=== PATIENT | male | born 1940 | race African-American/Black ===

== ENCOUNTER 2016-08-25 14:35 | Emergency (ER) | payer MEDICARE ==
--- NOTE | 2016-08-25 15:30 | ER Document Report ---
ED Medical Screen (RME) - General Stated Complaint: SHOULDER PAIN Time seen by provider: 15:27 Mode of Arrival: Ambulatory Information source: Patient Notes: 75-year-old smoker, hypertensive male complaining of bilateral shoulder pain for 3 weeks. It is worse since yesterday. Movement makes it worse. The pain radiates into both sides of his anterior chest. No known cardiac disease. Consult Dr. Walker for workup. I have greeted and performed a rapid initial assessment of this patient. A comprehensive ED assessment, evaluation of the patient, analysis of test results , and completion of the medical decision making process will be conducted by additional ED providers. TRAVEL OUTSIDE OF THE [place] IN LAST 30 DAYS: No - Related Data Allergies/Adverse Reactions: Penicillins Allergy (Verified 08/25/16 15:32) Past Medical History - Past Medical History Cardiac Medical History: Reports: Hx Congestive Heart Failure, Hx Hypertension Musculoskeltal Medical History: Reports Hx Arthritis Skin Medical History: Reports Hx Cellulitis - Immunizations Immunizations up to date: Yes Hx Diphtheria, Pertussis, Tetanus Vaccination: Yes Physical Exam - Vital signs Vitals: Temp Pulse Resp BP Pulse Ox 97.4 F 79 20 155/102 H 97 08/25/16 14:57 08/25/16 14:57 08/25/16 14:57 08/25/16 14:57 08/25/16 14:57 Course - Vital Signs Vital signs: Temp Pulse Resp BP Pulse Ox 97.4 F 79 20 155/102 H 97 08/25/16 14:57 08/25/16 14:57 08/25/16 14:57 08/25/16 14:57 08/25/16 14:57
[2016-08-25] MEDS ORDERED: ASPIRIN 81 MG TABLET, CHEWABLE PO ONE (15:31)
[2016-08-25 16:31] LABS: ABSOLUTE BASOPHILS # (AUTO) 0.1 10^3/uL (0.0-0.2); ABSOLUTE LYMPHOCYTES (AUTO) 1.4 10^3/uL (0.5-4.7); ABSOLUTE MONOCYTES (AUTO) 0.5 10^3/uL (0.1-1.4); ABSOLUTE NEUT (AUTO) 4.7 10^3/uL (1.7-8.2); BASOPHILS % (AUTO) 0.8 % (0-2); EOSINOPHILS % (AUTO) 0.7 % (0-6); HEMATOCRIT 40.9 % (37.9-51.0); HEMOGLOBIN 13.8 g/dL (13.5-17.0); HGB HCT DIFFERENCE 0.5; LYMPHOCYTES % (AUTO) 20.3 % (13-45); MEAN CORPUSCULAR HEMOGLOBIN 33.3 pg (27.0-33.4); MEAN CORPUSCULAR HGB CONC 33.7 g/dL (32.0-36.0); MEAN CORPUSCULAR VOLUME 99 fl (80-97); MONOCYTES % (AUTO) 7.7 % (3-13); RED BLOOD COUNT 4.14 10^6/uL (4.35-5.55); RED CELL DISTRIBUTION WIDTH 13.8 % (11.5-14.0); SEGMENTED NEUTROPHILS % (AUTO) 70.5 % (42-78); WHITE BLOOD COUNT 6.6 10^3/uL (4.0-10.5)
[2016-08-25 16:50] LABS: ALANINE AMINOTRANSFERASE 16 U/L (21-72); ALBUMIN 4.6 g/dL (3.5-5.0); ALKALINE PHOSPHATASE 241 U/L (38-126); ANION GAP 13 (5-19); ASPARTATE AMINO TRANSFERASE 34 U/L (17-59); BILIRUBIN,TOTAL 0.9 mg/dL (0.2-1.3); BLOOD UREA NITROGEN 17 mg/dL (7-20); CALCIUM 10.1 mg/dL (8.4-10.2); CARBON DIOXIDE 25 mmol/L (22-30); CHLORIDE 105 mmol/L (98-107); CREATINE KINASE 524 U/L (55-170); CREATININE RESULT 1.18 mg/dL (0.52-1.25); GLUCOSE 90 mg/dL (75-110); POTASSIUM 4.3 mmol/L (3.6-5.0); TOTAL PROTEIN 8.9 g/dL (6.3-8.2)
[2016-08-25 17:03] LABS: CREATINE KINASE MB 5.92 ng/mL (<4.55); TROPONIN I 0.031 ng/mL
--- NOTE | 2016-08-25 20:46 | EKG REPORT ---
SEVERITY:- ABNORMAL ECG - SINUS RHYTHM LEFT ANTERIOR FASCICULAR BLOCK NONSPECIFIC T ABNORMALITIES, LATERAL LEADS : Confirmed by: Rafael Hall 25-Aug-2016 20:45:55
[2016-08-25] MEDS ORDERED: OXYCODONE-ACETAMINOPHEN 5-325 MG TABLET PO ONE (21:39)
--- NOTE | 2016-08-25 21:40 | ER Document Report ---
ED General - General Chief Complaint: Shoulder Pain Stated Complaint: SHOULDER PAIN Mode of Arrival: Ambulatory Information source: Patient Notes: 75-year-old male presents with complaints of bilateral shoulder pain of 3 week duration. Patient notes it hurts when he moves. Denies any trauma. Patient has had similar episodes in the past.The pain is in the shoulders when he moves around his arms it radiates around his chest. Patient denies actual chest pain TRAVEL OUTSIDE OF THE [place] IN LAST 30 DAYS: No - HPI Onset: Other Onset/Duration: Persistent Quality of pain: Achy Severity: Mild Pain Level: 1 Associated symptoms: Body/muscle aches Exacerbated by: Movement Relieved by: Denies Similar symptoms previously: Yes Recently seen / treated by doctor: No - Related Data Allergies/Adverse Reactions: Penicillins Allergy (Verified 08/25/16 15:32) Past Medical History - General Information source: Patient - Social History Smoking Status: Current Every Day Smoker Cigarette use (# per day): Yes Chew tobacco use (# tins/day): No Smoking Education Provided: Yes - Patient counselled regarding cessation for 4 minutes Frequency of alcohol use: Occasional Drug Abuse: None Family History: Arthritis, DM, Hyperlipidemia, Hypertension Patient has suicidal ideation: No Patient has homicidal ideation: No - Past Medical History Cardiac Medical History: Reports: Hx Congestive Heart Failure, Hx Hypertension Renal/ Medical History: Denies: Hx Peritoneal Dialysis Musculoskeltal Medical History: Reports Hx Arthritis Skin Medical History: Reports Hx Cellulitis - Immunizations Immunizations up to date: Yes Hx Diphtheria, Pertussis, Tetanus Vaccination: Yes Review of Systems - Review of Systems Notes: REVIEW OF SYSTEMS: CONSTITUTIONAL : Denies fever, chills, or sweats. Denies recent illness. EENT: Denies eye, ear, throat, or mouth pain or symptoms. Denies nasal or sinus congestion or discharge. Denies throat, tongue, or mouth swelling or difficulty swallowing. CARDIOVASCULAR: Denies chest pain. Denies palpitations or racing or irregular heart beat. Denies ankle edema. RESPIRATORY: Denies cough, cold, or chest congestion. Denies shortness of breath, difficulty breathing, or wheezing. GASTROINTESTINAL: Denies abdominal pain or distention. Denies nausea, vomiting , or diarrhea. Denies blood in vomitus, stools, or per rectum. Denies black, tarry stools. Denies constipation. GENITOURINARY: Denies difficulty urinating, painful urination, burning, frequency, blood in urine, or discharge. MUSCULOSKELETAL: Admits to bilateral shoulder pain SKIN: Denies rash, lesions or sores. HEMATOLOGIC : Denies easy bruising or bleeding. LYMPHATIC: Denies swollen, enlarged glands. NEUROLOGICAL: Denies confusion or altered mental status. Denies passing out or loss of consciousness. Denies dizziness or lightheadedness. Denies headache. Denies weakness or paralysis or loss of use of either side. Denies problems with gait or speech. Denies sensory loss, numbness, or tingling. Denies seizures. PSYCHIATRIC: Denies anxiety or stress. Denies depression, suicidal ideation, or homicidal ideation. ALL OTHER SYSTEMS REVIEWED AND NEGATIVE. Dictation was performed using [employer] voice recognition software PHYSICAL EXAMINATION: GENERAL: Well-appearing, well-nourished and in no acute distress. HEAD: Atraumatic, normocephalic. EYES: Pupils equal round and reactive to light, extraocular movements intact, sclera anicteric, conjunctiva are normal. ENT: Nares patent, oropharynx clear without exudates. Moist mucous membranes. NECK: Normal range of motion, supple without lymphadenopathy LUNGS: Breath sounds clear to auscultation bilaterally and equal. No wheezes rales or rhonchi. HEART: Regular rate and rhythm without murmurs ABDOMEN: Soft, nontender, nondistended abdomen. No guarding, no rebound. No masses appreciated. Musculoskeletal: Tenderness with range of motion of bilateral shoulders NEUROLOGICAL: Cranial nerves grossly intact. Normal speech, normal gait. Normal sensory, motor exams PSYCH: Normal mood, normal affect. SKIN: Warm, Dry, normal turgor, no rashes or lesions noted. Physical Exam - Vital signs Vitals: Temp Pulse Resp BP Pulse Ox 97.4 F 79 20 155/102 H 97 08/25/16 14:57 08/25/16 14:57 08/25/16 14:57 08/25/16 14:57 08/25/16 14:57 Course - Re-evaluation Re-evalutation: 08/25/16 21:36 Given the pain worsens with movement has been ongoing for 3 weeks straight is not associated with any shortness breath difficult to breathing or actual pain to the chest I do not expect any life-threatening issues. 03/06/17 22:18 After performing a Medical Screening Examination, I estimate there is LOW risk for RUPTURED ESOPHAGUS, PNEUMOTHORAX, PULMONARY EMBOLISM, ACUTE CORONARY SYNDROME, OR THORACIC AORTIC DISSECTION, thus I consider the discharge disposition reasonable. The patient and I have discussed the diagnosis and risks , and we agree with discharging home with close follow-up. We also discussed returning to the Emergency Department immediately if new or worsening symptoms occur. We have discussed the symptoms which are most concerning (e.g., bloody sputum, worsening pain or shortness of breath) that necessitate immediate return. - Vital Signs Vital signs: Temp Pulse Resp BP Pulse Ox 97.4 F 79 20 155/102 H 97 08/25/16 14:57 08/25/16 14:57 08/25/16 14:57 08/25/16 14:57 08/25/16 14:57 - Laboratory Result Diagrams: 08/25/16 16:05 08/25/16 16:05 Laboratory results interpreted by me: 08/25/16 08/25/16 08/25/16 16:05 16:05 16:05 RBC 4.14 L MCV 99 H ALT 16 L Alkaline Phosphatase 241 H Creatine Kinase 524 H CK-MB (CK-2) 5.92 H Total Protein 8.9 H - Diagnostic Test Radiology reviewed: Image reviewed, Reports reviewed - EKG Interpretation by Ca EKG shows normal: Sinus rhythm, [place], Intervals, QRS Complexes Discharge - Discharge Clinical Impression: Myalgia Shoulder pain Qualifiers: Laterality: bilateral Chronicity: acute Qualified Code(s): M25.511 - Pain in right shoulder Condition: Stable Disposition: HOME, SELF-CARE Instructions: Muscle Strain ([facility]), Myalagia (Muscle Pain) ([facility]) Additional Instructions: Follow up with your physician tomorrow for further care or return to the ED IMMEDIATELY if symptoms worsen or new concerns occur Prescriptions: Hydrocodone/Acetaminophen [[place] 5-325 mg Tablet] 1 tab PO Q6 #14 tablet Referrals: ARIN LEON MD [Primary Care Provider] - Follow up in 3-5 days
[2016-08-25 23:13] VITALS: BP 147/65
== END 2016-08-25 23:13 | disposition home or self-care (01) ==
LOC: ER 14:35
DX: M25.512 Pain in left shoulder (principal); M25.511 Pain in right shoulder; Z88.0 Allergy status to penicillin; I10 Essential (primary) hypertension; F17.210 Nicotine dependence, cigarettes, uncomplicated; Z71.6 Tobacco abuse counseling
CPT/HCPCS: 93005; 99406; 99284; 36415; 82553; 82550; 85025; 80053; 84484; 71010; 93010; A9270 ×2

== ENCOUNTER 2016-10-23 11:11 | Emergency (ER) | payer MEDICARE ==
--- NOTE | 2016-10-23 11:28 | ER Document Report ---
ED Medical Screen (RME) - General Chief Complaint: Productive Cough Stated Complaint: SHOULDER PAIN Mode of Arrival: Ambulatory Information source: Patient Notes: Patient complains of pain in both shoulders. Pain of about 3 weeks' duration. Also he complains of a cough and a very poor appetite. He has been losing weight. TRAVEL OUTSIDE OF THE [place] IN LAST 30 DAYS: No - HPI Onset: Other - 3 WEEKS Onset/Duration: Gradual Quality of pain: Achy Severity: Moderate Similar symptoms previously: No Recently seen / treated by doctor: No - Related Data Smoking: Cigarettes Frequency of alcohol use: None Drug Abuse: None Allergies/Adverse Reactions: Penicillins Allergy (Verified 10/23/16 11:13) Past Medical History - General Information source: Patient - Social History Lives with: Spouse/Significant other - Past Medical History Cardiac Medical History: Reports: Hx Congestive Heart Failure, Hx Hypertension Renal/ Medical History: Denies: Hx Peritoneal Dialysis Musculoskeltal Medical History: Reports Hx Arthritis Skin Medical History: Reports Hx Cellulitis - Immunizations Immunizations up to date: Yes Hx Diphtheria, Pertussis, Tetanus Vaccination: Yes Review of Systems - Review of Systems Constitutional: Weakness. denies: Fever EENT: No symptoms reported Cardiovascular: See HPI Respiratory: See HPI Genitourinary: See HPI Physical Exam - Vital signs Vitals: Temp Pulse Resp BP Pulse Ox 98.3 F 77 16 132/94 H 94 10/23/16 11:14 10/23/16 11:14 10/23/16 11:14 10/23/16 11:14 10/23/16 11:14 Interpretation: Hypertensive - General General appearance: Appears well, Alert In distress: None - Respiratory Respiratory status: No respiratory distress Breath sounds: Productive cough. No: Rales, Rhonchi - Cardiovascular Rhythm: Regular Heart sounds: Normal auscultation Murmur: No Course - Vital Signs Vital signs: Temp Pulse Resp BP Pulse Ox 98.3 F 77 16 132/94 H 94 10/23/16 11:14 10/23/16 11:14 10/23/16 11:14 10/23/16 11:14 10/23/16 11:14
[2016-10-23 11:41] LABS: ABSOLUTE EOSINOPHILS # (AUTO) 0.4 10^3/uL (0.0-0.6); ABSOLUTE LYMPHOCYTES (AUTO) 1.8 10^3/uL (0.5-4.7); ABSOLUTE MONOCYTES (AUTO) 0.5 10^3/uL (0.1-1.4); ABSOLUTE NEUT (AUTO) 3.2 10^3/uL (1.7-8.2); BASOPHILS % (AUTO) 0.6 % (0-2); EOSINOPHILS % (AUTO) 7.1 % (0-6); HEMATOCRIT 38.3 % (37.9-51.0); HEMOGLOBIN 12.9 g/dL (13.5-17.0); HGB HCT DIFFERENCE 0.4; LYMPHOCYTES % (AUTO) 30.8 % (13-45); MEAN CORPUSCULAR HEMOGLOBIN 32.8 pg (27.0-33.4); MEAN CORPUSCULAR HGB CONC 33.7 g/dL (32.0-36.0); MEAN CORPUSCULAR VOLUME 97 fl (80-97); MONOCYTES % (AUTO) 8.3 % (3-13); RED BLOOD COUNT 3.93 10^6/uL (4.35-5.55); RED CELL DISTRIBUTION WIDTH 13.2 % (11.5-14.0); SEGMENTED NEUTROPHILS % (AUTO) 53.2 % (42-78)
[2016-10-23 11:56] LABS: ALANINE AMINOTRANSFERASE 17 U/L (21-72); ALBUMIN 4.1 g/dL (3.5-5.0); ALKALINE PHOSPHATASE 149 U/L (38-126); ANION GAP 14 (5-19); ASPARTATE AMINO TRANSFERASE 26 U/L (17-59); BILIRUBIN,DIRECT 0.3 mg/dL (0.0-0.4); BILIRUBIN,TOTAL 0.4 mg/dL (0.2-1.3); BLOOD UREA NITROGEN 24 mg/dL (7-20); CALCIUM 9.6 mg/dL (8.4-10.2); CARBON DIOXIDE 22 mmol/L (22-30); CHLORIDE 105 mmol/L (98-107); CREATINE KINASE 340 U/L (55-170); CREATININE RESULT 1.37 mg/dL (0.52-1.25); GLUCOSE 96 mg/dL (75-110); POTASSIUM 4.3 mmol/L (3.6-5.0); SODIUM 141.4 mmol/L (137-145)
[2016-10-23 12:08] LABS: CREATINE KINASE MB 4.42 ng/mL (<4.55); TROPONIN I 0.012 ng/mL
[2016-10-23] MEDS ORDERED: LIDOCAINE 5% (700 MG) TRANSDERMAL ADH..PATCH TP ONE (12:25)
--- NOTE | 2016-10-23 12:26 | ER Document Report ---
ED General - General Chief Complaint: Productive Cough Stated Complaint: SHOULDER PAIN Mode of Arrival: Ambulatory TRAVEL OUTSIDE OF THE [place] IN LAST 30 DAYS: No - HPI Patient complains to provider of: chronic cough shoulder pain Notes: Patient coming in for evaluation of left shoulder pain patient states pain ongoing intermittently greater than a month. Patient points to the upper trapezius muscle on left side as far as location the pain. Patient adamantly denies any specific chest pain. Patient states pain with range of motion exercises. Patient also states cough. Patient states he does smoke approximately 1-2 packs a day. Patient otherwise denies fevers chills nausea vomiting abdominal pain - Related Data Allergies/Adverse Reactions: Penicillins Allergy (Verified 10/23/16 11:13) Past Medical History - General Information source: Patient - Social History Smoking Status: Unknown if Ever Smoked Frequency of alcohol use: None Drug Abuse: None Lives with: Spouse/Significant other Family History: Arthritis, DM, Hyperlipidemia, Hypertension Patient has suicidal ideation: No Patient has homicidal ideation: No - Past Medical History Cardiac Medical History: Reports: Hx Congestive Heart Failure, Hx Hypertension Renal/ Medical History: Denies: Hx Peritoneal Dialysis Musculoskeltal Medical History: Reports Hx Arthritis Skin Medical History: Reports Hx Cellulitis - Immunizations Immunizations up to date: Yes Hx Diphtheria, Pertussis, Tetanus Vaccination: Yes Review of Systems - Review of Systems Constitutional: No symptoms reported EENT: No symptoms reported Cardiovascular: No symptoms reported Respiratory: No symptoms reported Gastrointestinal: No symptoms reported Genitourinary: No symptoms reported Male Genitourinary: No symptoms reported Musculoskeletal: Other - Shoulder pain Skin: No symptoms reported Hematologic/Lymphatic: No symptoms reported Neurological/Psychological: No symptoms reported Physical Exam - Vital signs Vitals: Temp Pulse Resp BP Pulse Ox 98.3 F 77 16 132/94 H 94 10/23/16 11:14 10/23/16 11:14 10/23/16 11:14 10/23/16 11:14 10/23/16 11:14 Interpretation: Normal - General General appearance: Appears well, Alert - HEENT Head: Normocephalic, Atraumatic Eyes: Normal Pupils: PERRL - Respiratory Respiratory status: No respiratory distress Chest status: Nontender Breath sounds: Normal Chest palpation: Normal - Cardiovascular Rhythm: Regular Heart sounds: Normal auscultation Murmur: No - Abdominal Inspection: Normal Distension: No distension Bowel sounds: Normal Tenderness: Nontender Organomegaly: No organomegaly - Back Back: Normal, Nontender - Extremities General upper extremity: Normal inspection, Tender - Tenderness palpation reproduces patient's left shoulder pain, Normal color, Normal ROM, Normal temperature General lower extremity: Normal inspection, Nontender, Normal color, Normal ROM , Normal temperature, Normal weight bearing. No: Hussein's sign - Neurological Neuro grossly intact: Yes Cognition: Normal Orientation: AAOx4 Antonio Coma Scale Eye Opening: Spontaneous Antonio Coma Scale Verbal: Oriented [place] Coma Scale Motor: Obeys Commands Antonio Coma Scale Total: 15 Speech: Normal Motor strength normal: LUE, RUE, LLE, RLE Sensory: Normal - Psychological Associated symptoms: Normal affect, Normal mood - Skin Skin Temperature: Warm Skin Moisture: Dry Skin Color: Normal Course - Re-evaluation Re-evalutation: 10/23/16 15:02 The patient has atypical left shoulder pain as the patient's chest pain is not suggestive of pulmonary embolus, cardiac ischemia, aortic dissection, or other serious etiology. Given the extremely low risk of these diagnoses further testing and evaluation for these possibilities does not appear to be indicated at this time. The patient has been instructed to return if the symptoms worsen or change in any way. - Vital Signs Vital signs: Temp Pulse Resp BP Pulse Ox 98.2 F 65 16 132/76 H 99 10/23/16 12:59 10/23/16 12:59 10/23/16 12:59 10/23/16 12:59 10/23/16 12:59 - Laboratory Result Diagrams: 10/23/16 11:25 10/23/16 11:25 Laboratory results interpreted by me: 10/23/16 10/23/16 11:25 11:25 RBC 3.93 L Hgb 12.9 L Eosinophils % 7.1 H BUN 24 H Creatinine 1.37 H Est GFR (Non-Af Amer) 51 L ALT 17 L Alkaline Phosphatase 149 H Creatine Kinase 340 H Discharge - Discharge Clinical Impression: Tobacco use disorder, Cough, left upper shoulder pain Condition: Good Disposition: HOME, SELF-CARE Instructions: Exercise Program for the Shoulder ([facility]), Shoulder Injury ([facility]), Cough Suppressant & Expectorant Medications Additional Instructions: Take medication as prescribed. Return to the ER symptoms worsen. Follow-up with your primary care physician Prescriptions: Benzonatate [Tessalon [place] 100 mg Capsule] 100 mg PO Q8HP PRN #40 cap PRN Reason: Tramadol HCl [Ultram 50 mg Tablet] 50 mg PO ASDIR PRN #20 tablet PRN Reason: Forms: Smoking Cessation Education Referrals: ARIN LEON MD [Primary Care Provider] - Follow up as needed
[2016-10-23 13:06] VITALS: BP 132/76
--- NOTE | 2016-10-24 08:09 | EKG REPORT ---
SEVERITY:- ABNORMAL ECG - SINUS RHYTHM LAD, CONSIDER LAFB OR INFERIOR INFARCT NONSPECIFIC T ABNORMALITIES, LATERAL LEADS : Confirmed by: Kranthi Espinoza MD 24-Oct-2016 08:08:14
== END 2016-10-23 13:00 | disposition home or self-care (01) ==
LOC: ER 11:11
DX: M25.512 Pain in left shoulder (principal); R05 Cough; F17.210 Nicotine dependence, cigarettes, uncomplicated
CPT/HCPCS: 36415; 71020; 80053; 82550; 82553; 84484; 85025; 93005; 93010; 99284

== ENCOUNTER 2016-10-26 20:05 | Emergency (ER) | payer MEDICARE ==
--- NOTE | 2016-10-26 20:50 | ER Document Report ---
ED General - General Mode of Arrival: Medic Information source: Patient TRAVEL OUTSIDE OF THE [place] IN LAST 30 DAYS: No - HPI Onset: Other - Refer to HPI notes Exacerbated by: Movement, Walking Relieved by: Sitting, Remaining still Similar symptoms previously: Yes Recently seen / treated by doctor: Yes <RAFAL KAMARA - Last Filed: 10/26/16 22:16> <NINO CAMPBELL - Last Filed: 10/26/16 23:11> - General Stated Complaint: CHEST PAIN Notes: Patient is a 75-year-old male presented to emergency department for shoulder pain. Patient states she has had shoulder pain for the past 3 weeks. Patient states his pain is exacerbated when picking up things and walking. Patient states if he is sitting still he has relief to his shoulder pain. Patient was seen on 10/23/16 for same complaint. Patient states his pain eased off but has returned. Patient told triage of a productive cough for 3 weeks but patient does not complain of such during exam. Patient was also seen on 08/25/16 with a chief complaint of shoulder pain for 3 weeks. Patient denies any previous cardiac medical history. Patient's primary care physician is Dr. Watson. Patient is allergic to penicillin. (RAFAL KAMARA) - Related Data Allergies/Adverse Reactions: Penicillins Allergy (Verified 10/23/16 11:13) Past Medical History - General Information source: Patient - Social History Smoking Status: Current Every Day Smoker Chew tobacco use (# tins/day): No Frequency of alcohol use: None Drug Abuse: None Family History: Arthritis, DM, Hyperlipidemia, Hypertension - Past Medical History Cardiac Medical History: Reports: Hx Congestive Heart Failure, Hx Hypertension Musculoskeltal Medical History: Reports Hx Arthritis Skin Medical History: Reports Hx Cellulitis Surgical Hx: Negative - Immunizations Immunizations up to date: Yes Hx Diphtheria, Pertussis, Tetanus Vaccination: Yes <RAFAL KAMARA - Last Filed: 10/26/16 22:16> Review of Systems - Review of Systems Constitutional: No symptoms reported EENT: No symptoms reported Cardiovascular: No symptoms reported Respiratory: No symptoms reported Gastrointestinal: No symptoms reported Genitourinary: No symptoms reported Male Genitourinary: No symptoms reported Musculoskeletal: See HPI Skin: No symptoms reported Hematologic/Lymphatic: No symptoms reported Neurological/Psychological: No symptoms reported -: Yes All other systems reviewed and negative <EDRAFAL LEWIS - Last Filed: 10/26/16 22:16> Physical Exam <RAFAL KAMARA - Last Filed: 10/26/16 22:16> <NINO CAMPBELL - Last Filed: 10/26/16 23:11> - Vital signs Vitals: Resp 16 10/26/16 20:15 - Notes Notes: GENERAL: Alert, interacts well. No acute distress. HEAD: Normocephalic, atraumatic. EYES: Pupils equal, round, and reactive to light. Extraocular movements intact. ENT: Oral mucosa moist, tongue midline. Edentulous. NECK: Full range of motion. Supple. Trachea midline. LUNGS: Chest is non-tender. Clear to auscultation bilaterally, no wheezes, rales , or rhonchi. No respiratory distress. HEART: Regular rate and rhythm. No murmurs, gallops, or rubs. ABDOMEN: Soft, non-tender. Non-distended. Bowel sounds present in all 4 quadrants. EXTREMITIES: Tenderness to palpation anteriorly over the glenohumeral joint bilaterally. Moves all 4 extremities spontaneously. No edema, radial and dorsalis pedis pulses 2/4 bilaterally. No cyanosis. NEUROLOGICAL: Alert and oriented x3. Normal speech. PSYCH: Normal affect, normal mood. SKIN: Warm, dry, normal turgor. No rashes or lesions noted. (ASADRAFAL) Course - Laboratory Result Diagrams: 10/26/16 20:30 10/26/16 21:08 <RAFAL KAMARA - Last Filed: 10/26/16 22:16> - Laboratory Result Diagrams: 10/26/16 20:30 10/26/16 21:08 <NINO CAMPBELL - Last Filed: 10/26/16 23:11> - Re-evaluation Re-evalutation: 10/26/16 23:08 CBC shows chronic anemia, CMP shows slightly elevated alkaline phosphatase, CK and CK-MB are slightly elevated, troponin is negative at 0.021 despite over 3 weeks' worth of nonstop pain. Review the records reveals a visit for the same thing in August as well as a visit for the same thing approximately 3 days ago. Patient was previously treated with hydrocodone and then treated with tramadol. States that nothing is working to decrease his pain. Patient has not followed up with his primary care physician or see fell up with orthopedic surgery. Discussed with patient that for this chronic pain he will need to follow up as an outpatient, his best that will likely be orthopedic surgery. Suspect that this pain is coming from arthritis in his shoulders. We will not be providing any further narcotic pain medication. Recommend using acetaminophen. Patient was discharged to home. 10/26/16 23:09 Denies any cough to me, denies any shortness of breath to me, denies any chest pain to me. Patient is very low risk for acute coronary syndrome, pulmonary embolism or dissection as this pain has been going on for at least 3 weeks but looking in the records appears to been going on for closer to 3 months. (NINO CAMPBELL) - Vital Signs Vital signs: Temp Pulse Resp BP Pulse Ox 98.2 F 14 123/72 94 10/26/16 20:31 10/26/16 20:45 10/26/16 20:31 10/26/16 20:57 - Laboratory Laboratory results interpreted by me: 10/26/16 10/26/16 10/26/16 20:30 21:08 21:08 RBC 3.49 L Hgb 11.6 L Hct 34.0 L Plt Count 136 L Carbon Dioxide 20 L Est GFR (Non-Af Amer) 56 L ALT 20 L Alkaline Phosphatase 160 H Creatine Kinase 378 H CK-MB (CK-2) 5.41 H - EKG Interpretation by Me Additional EKG results interpreted by me: 10/26/16 23:09 EKG shows sinus rhythm at a rate of 64, left anterior hemiblock, normal R wave progression, T wave inversions in lead 1 and aVL, no ST segment elevations or depressions, per my interpretation. (NINO CAMPBELL) Discharge <RAFAL KAMARA - Last Filed: 10/26/16 22:16> <NINO CAMPBELL - Last Filed: 10/26/16 23:11> - Discharge Clinical Impression: Bilateral shoulder pain Qualifiers: Chronicity: chronic Qualified Code(s): M25.512 - Pain in left shoulder; M25.511 - Pain in right shoulder; G89.29 - Other chronic pain Condition: Stable Disposition: HOME, SELF-CARE Additional Instructions: For your bilateral shoulder pain that has been going on for at least 3 weeks it is very important that you follow up with your primary care physician as an outpatient. You may wish to follow up with an orthopedic surgeon to discuss possible joint injections. I suspect that arthritis is the cause of your pain. Elliott Attestation: 10/26/16 23:11 I personally performed the services described in the documentation, reviewed and edited the documentation which was dictated to the scribe in my presence, and it accurately records my words and actions. (NINO CAMPBELL) Scribe Documentation - Scribe Written by Elliott:: Elliott De La Cruz, 10/26/16 21:46 acting as scribe for :: Emily <RAFAL KAMARA - Last Filed: 10/26/16 22:16>
[2016-10-26 20:57] LABS: ABSOLUTE BASOPHILS # (AUTO) 0.1 10^3/uL (0.0-0.2); ABSOLUTE EOSINOPHILS # (AUTO) 0.2 10^3/uL (0.0-0.6); ABSOLUTE LYMPHOCYTES (AUTO) 1.6 10^3/uL (0.5-4.7); ABSOLUTE MONOCYTES (AUTO) 0.3 10^3/uL (0.1-1.4); ABSOLUTE NEUT (AUTO) 2.7 10^3/uL (1.7-8.2); BASOPHILS % (AUTO) 1.3 % (0-2); EOSINOPHILS % (AUTO) 3.4 % (0-6); HEMOGLOBIN 11.6 g/dL (13.5-17.0); HGB HCT DIFFERENCE 0.8; LYMPHOCYTES % (AUTO) 32.9 % (13-45); MEAN CORPUSCULAR HEMOGLOBIN 33.3 pg (27.0-33.4); MEAN CORPUSCULAR HGB CONC 34.2 g/dL (32.0-36.0); MEAN CORPUSCULAR VOLUME 97 fl (80-97); MONOCYTES % (AUTO) 7.2 % (3-13); RED BLOOD COUNT 3.49 10^6/uL (4.35-5.55); RED CELL DISTRIBUTION WIDTH 13.1 % (11.5-14.0); SEGMENTED NEUTROPHILS % (AUTO) 55.2 % (42-78); WHITE BLOOD COUNT 4.9 10^3/uL (4.0-10.5)
[2016-10-26 21:35] LABS: ALANINE AMINOTRANSFERASE 20 U/L (21-72); ALBUMIN 4.3 g/dL (3.5-5.0); ALKALINE PHOSPHATASE 160 U/L (38-126); ANION GAP 16 (5-19); ASPARTATE AMINO TRANSFERASE 31 U/L (17-59); BILIRUBIN,DIRECT 0.3 mg/dL (0.0-0.4); BILIRUBIN,TOTAL 0.3 mg/dL (0.2-1.3); BLOOD UREA NITROGEN 17 mg/dL (7-20); CALCIUM 9.5 mg/dL (8.4-10.2); CARBON DIOXIDE 20 mmol/L (22-30); CHLORIDE 107 mmol/L (98-107); CREATINE KINASE 378 U/L (55-170); CREATININE RESULT 1.25 mg/dL (0.52-1.25); GLUCOSE 86 mg/dL (75-110); POTASSIUM 3.9 mmol/L (3.6-5.0); SODIUM 143.3 mmol/L (137-145)
[2016-10-26 21:47] LABS: CREATINE KINASE MB 5.41 ng/mL (<4.55); TROPONIN I 0.021 ng/mL
--- NOTE | 2016-10-26 22:39 | EKG REPORT ---
SEVERITY:- ABNORMAL ECG - SINUS RHYTHM LEFT ANTERIOR FASCICULAR BLOCK LOW VOLTAGE IN FRONTAL LEADS NONSPECIFIC T ABNORMALITIES, LATERAL LEADS : Confirmed by: Kranthi Espinoza MD 26-Oct-2016 22:38:54
--- NOTE | 2016-10-26 22:41 | EKG REPORT ---
SEVERITY:- ABNORMAL ECG - SINUS RHYTHM LOW VOLTAGE IN FRONTAL LEADS NONSPECIFIC T ABNORMALITIES, LATERAL LEADS : Confirmed by: Kranthi Espinoza MD 26-Oct-2016 22:40:28
[2016-10-26 23:55] VITALS: BP 128/69
== END 2016-10-26 23:32 | disposition home or self-care (01) ==
LOC: ER 20:05
DX: G89.29 Other chronic pain (principal); M25.511 Pain in right shoulder; M25.512 Pain in left shoulder; I45.9 Conduction disorder, unspecified; R74.8 Abnormal levels of other serum enzymes; D64.9 Anemia, unspecified; I10 Essential (primary) hypertension; F17.200 Nicotine dependence, unspecified, uncomplicated; Z88.0 Allergy status to penicillin; Z86.79 Personal history of other diseases of the circulatory system
CPT/HCPCS: 36415; 71010; 80053; 82550; 82553; 84484; 85025; 93005; 93010; 99284

== ENCOUNTER 2016-11-12 15:05 | Emergency (ER) | payer MEDICARE ==
--- NOTE | 2016-11-12 15:45 | ER Document Report ---
ED Medical Screen (RME) - General Chief Complaint: General Weakness Stated Complaint: HIP PAIN Time Seen by Provider: 11/12/16 15:41 Notes: Patient is complaining of feeling weakness all over this been present for at least 2 or 3 weeks. Says he saw his local primary care provider for the same complaint 3 weeks ago. Says he cannot walk any significant distance without falling because he is so weak. Patient is also complaining of pain in both of his shoulders. Describes it as "hurting". Recalls no injury. Has had some vomiting. No diarrhea. Has had a cough and chest congestion and feels short of breath. Denies any fevers. Cigarette smoker. TRAVEL OUTSIDE OF THE [place] IN LAST 30 DAYS: No - Related Data Allergies/Adverse Reactions: Penicillins Allergy (Verified 11/12/16 15:08) Past Medical History - Past Medical History Cardiac Medical History: Reports: Hx Congestive Heart Failure, Hx Hypertension Renal/ Medical History: Denies: Hx Peritoneal Dialysis Musculoskeltal Medical History: Reports Hx Arthritis Skin Medical History: Reports Hx Cellulitis - Immunizations Immunizations up to date: Yes Hx Diphtheria, Pertussis, Tetanus Vaccination: Yes Physical Exam - Vital signs Vitals: Temp Pulse Resp BP Pulse Ox 97.8 F 70 20 129/78 H 96 11/12/16 15:09 11/12/16 15:09 11/12/16 15:09 11/12/16 15:09 11/12/16 15:09 Course - Vital Signs Vital signs: Temp Pulse Resp BP Pulse Ox 97.8 F 70 20 129/78 H 96 11/12/16 15:09 11/12/16 15:09 11/12/16 15:09 11/12/16 15:09 11/12/16 15:09
[2016-11-12 16:23] LABS: ABSOLUTE BASOPHILS # (AUTO) 0.1 10^3/uL (0.0-0.2); ABSOLUTE EOSINOPHILS # (AUTO) 0.1 10^3/uL (0.0-0.6); ABSOLUTE LYMPHOCYTES (AUTO) 1.1 10^3/uL (0.5-4.7); ABSOLUTE MONOCYTES (AUTO) 0.6 10^3/uL (0.1-1.4); ABSOLUTE NEUT (AUTO) 5.6 10^3/uL (1.7-8.2); BASOPHILS % (AUTO) 0.7 % (0-2); EOSINOPHILS % (AUTO) 0.7 % (0-6); HEMATOCRIT 41.5 % (37.9-51.0); HGB HCT DIFFERENCE 0.5; LYMPHOCYTES % (AUTO) 15.2 % (13-45); MEAN CORPUSCULAR HEMOGLOBIN 32.7 pg (27.0-33.4); MEAN CORPUSCULAR HGB CONC 33.6 g/dL (32.0-36.0); MEAN CORPUSCULAR VOLUME 97 fl (80-97); MONOCYTES % (AUTO) 7.8 % (3-13); RED BLOOD COUNT 4.27 10^6/uL (4.35-5.55); RED CELL DISTRIBUTION WIDTH 13.1 % (11.5-14.0); SEGMENTED NEUTROPHILS % (AUTO) 75.6 % (42-78); WHITE BLOOD COUNT 7.4 10^3/uL (4.0-10.5)
--- NOTE | 2016-11-12 16:31 | RADIOLOGY REPORT (SQ) ---
EXAM DESCRIPTION: CHEST PA/LAT COMPLETED DATE/TIME: 11/12/2016 4:21 pm REASON FOR STUDY: Weakness, shortness of breath, [place], cigarette smo COMPARISON: 10/23/2016 EXAM PARAMETERS: NUMBER OF VIEWS: two views TECHNIQUE: Digital Frontal and Lateral radiographic views of the chest acquired. RADIATION DOSE: NA LIMITATIONS: none FINDINGS: LUNGS AND PLEURA: No opacities, masses or pneumothorax. No pleural effusion. MEDIASTINUM AND HILAR STRUCTURES: No masses or contour abnormalities. HEART AND VASCULAR STRUCTURES: Heart normal size. No evidence for failure. BONES: There is levoscoliosis in the upper thoracic spine. Bridging osteophytes are present at multi ple levels. HARDWARE: None in the chest. OTHER: No other significant finding. IMPRESSION: 1. There is no acute cardiopulmonary disease. 2. There is scoliosis and spondylosis. TECHNICAL DOCUMENTATION: JOB ID: [id number] [employer]- All Rights Reserved
[2016-11-12 16:36] LABS: ALANINE AMINOTRANSFERASE 30 U/L (21-72); ALBUMIN 4.6 g/dL (3.5-5.0); ALKALINE PHOSPHATASE 188 U/L (38-126); ANION GAP 16 (5-19); ASPARTATE AMINO TRANSFERASE 26 U/L (17-59); BILIRUBIN,DIRECT 0.3 mg/dL (0.0-0.4); BLOOD UREA NITROGEN 16 mg/dL (7-20); CALCIUM 9.6 mg/dL (8.4-10.2); CARBON DIOXIDE 23 mmol/L (22-30); CHLORIDE 103 mmol/L (98-107); CREATINE KINASE 248 U/L (55-170); GLUCOSE 100 mg/dL (75-110); LIPASE 40.4 U/L (23-300); POTASSIUM 4.4 mmol/L (3.6-5.0); SODIUM 141.6 mmol/L (137-145); TOTAL PROTEIN 8.7 g/dL (6.3-8.2)
[2016-11-12 16:47] LABS: CREATINE KINASE MB 3.24 ng/mL (<4.55); TROPONIN I 0.017 ng/mL
[2016-11-12] MEDS ORDERED: LIDOCAINE 5% (700 MG) TRANSDERMAL ADH..PATCH TP ONE (17:02)
--- NOTE | 2016-11-12 18:29 | ER Document Report ---
ED General - General Chief Complaint: General Weakness Stated Complaint: HIP PAIN Time Seen by Provider: 11/12/16 15:41 TRAVEL OUTSIDE OF THE [place] IN LAST 30 DAYS: No - HPI Patient complains to provider of: Generalized weakness Notes: Patient is coming in for arthralgias generalized weakness. Patient states ongoing for approximately 2-3 weeks. Patient has bilateral shoulder pain. Patient also states bilateral hip pain. Patient does smoke. Patient denies any fever chills nausea vomiting. Also has a cough nonproductive. - Related Data Allergies/Adverse Reactions: Penicillins Allergy (Verified 11/12/16 15:08) Past Medical History - Social History Smoking Status: Current Every Day Smoker Chew tobacco use (# tins/day): No Frequency of alcohol use: None Drug Abuse: None Family History: Arthritis, DM, Hyperlipidemia, Hypertension Patient has suicidal ideation: No Patient has homicidal ideation: No - Past Medical History Cardiac Medical History: Reports: Hx Congestive Heart Failure, Hx Hypertension Renal/ Medical History: Denies: Hx Peritoneal Dialysis Musculoskeltal Medical History: Reports Hx Arthritis Skin Medical History: Reports Hx Cellulitis - Immunizations Immunizations up to date: Yes Hx Diphtheria, Pertussis, Tetanus Vaccination: Yes Review of Systems - Review of Systems Constitutional: No symptoms reported EENT: No symptoms reported Cardiovascular: No symptoms reported Respiratory: Cough Gastrointestinal: No symptoms reported Genitourinary: No symptoms reported Male Genitourinary: No symptoms reported Musculoskeletal: Other - Point pain Skin: No symptoms reported Hematologic/Lymphatic: No symptoms reported Neurological/Psychological: No symptoms reported -: Yes All other systems reviewed and negative Physical Exam - Vital signs Vitals: Temp Pulse Resp BP Pulse Ox 97.8 F 70 20 129/78 H 96 11/12/16 15:09 11/12/16 15:09 11/12/16 15:09 11/12/16 15:09 11/12/16 15:09 Interpretation: Normal - General General appearance: Appears well, Alert - HEENT Head: Normocephalic, Atraumatic Eyes: Normal Pupils: PERRL - Respiratory Respiratory status: No respiratory distress Chest status: Nontender Breath sounds: Normal Chest palpation: Normal - Cardiovascular Rhythm: Regular Heart sounds: Normal auscultation Murmur: No - Abdominal Inspection: Normal Distension: No distension Bowel sounds: Normal Tenderness: Nontender Organomegaly: No organomegaly - Back Back: Normal, Nontender - Extremities General upper extremity: Normal inspection, Nontender, Normal color, Normal ROM , Normal temperature General lower extremity: Normal inspection, Nontender, Normal color, Normal ROM , Normal temperature, Normal weight bearing. No: Hussein's sign - Neurological Neuro grossly intact: Yes Cognition: Normal Orientation: AAOx4 [place] Coma Scale Eye Opening: Spontaneous Antonio Coma Scale Verbal: Oriented Antonio Coma Scale Motor: Obeys Commands Antonio Coma Scale Total: 15 Speech: Normal Motor strength normal: LUE, RUE, LLE, RLE Sensory: Normal - Psychological Associated symptoms: Normal affect, Normal mood - Skin Skin Temperature: Warm Skin Moisture: Dry Skin Color: Normal Course - Re-evaluation Re-evalutation: 11/12/16 22:56 Patient's lab work shows noetiology for patient's symptoms. Patient's symptoms seem to be chronic. Patient was encouraged follow-up with primary care physician. Patient was encouraged to take Tylenol Motrin for his pain and also will try Lidoderm patch. Patient was discharged - Vital Signs Vital signs: Temp Pulse Resp BP Pulse Ox 97.9 F 70 25 H 135/80 H 96 11/12/16 19:06 11/12/16 15:09 11/12/16 19:06 11/12/16 19:06 11/12/16 19:06 - Laboratory Result Diagrams: 11/12/16 16:06 11/12/16 16:06 Laboratory results interpreted by me: 11/12/16 11/12/16 16:06 16:06 RBC 4.27 L Creatinine 1.30 H Est GFR (Non-Af Amer) 54 L Alkaline Phosphatase 188 H Creatine Kinase 248 H Total Protein 8.7 H Discharge - Discharge Clinical Impression: Weakness Arthralgia Qualifiers: Joint pain location: unspecified Qualified Code(s): M25.50 - Pain in unspecified joint Condition: Good Disposition: HOME, SELF-CARE Instructions: Weakness ([facility]), Stop Smoking ([facility]), Myalagia (Muscle Pain) ([facility]) , Arthralgia ([facility]) Additional Instructions: Your lab work today chest x-ray does not show any signs of significant pathology. Please make sure that she follow-up with your primary care physician. He may take Tylenol and Motrin [id number] for your pain until you see your physician for further medication You may ask pharmacist about [id number] Lidoderm patches Referrals: ARIN LEON MD [Primary Care Provider] - Follow up in 3-5 days
[2016-11-12 19:43] VITALS: BP 135/80
--- NOTE | 2016-11-12 20:04 | EKG REPORT ---
SEVERITY:- ABNORMAL ECG - SINUS RHYTHM MULTIPLE VENTRICULAR PREMATURE COMPLEXES LEFT ANTERIOR FASCICULAR BLOCK LOW VOLTAGE IN FRONTAL LEADS ABNORMAL T, CONSIDER ISCHEMIA, LATERAL LEADS : Confirmed by: Kranthi Espinoza MD 12-Nov-2016 20:03:55
== END 2016-11-12 19:35 | disposition home or self-care (01) ==
LOC: ER 15:05
DX: M25.50 Pain in unspecified joint (principal); R53.1 Weakness; M25.551 Pain in right hip; M25.552 Pain in left hip; M25.511 Pain in right shoulder; M25.512 Pain in left shoulder; R05 Cough; F17.200 Nicotine dependence, unspecified, uncomplicated
CPT/HCPCS: 36415; 71020; 80053; 82550; 82553; 83690; 84484; 85025; 93005; 93010; 99285

== ENCOUNTER 2016-12-25 10:25 | Emergency (ER) | payer MEDICARE ==
[2016-12-25 11:57] LABS: APPEARANCE,URINE CLEAR; BILIRUBIN,URINE NEGATIVE (NEGATIVE); GLUCOSE, URINE NEGATIVE (NEGATIVE); KETONES,URINE NEGATIVE (NEGATIVE); LEUKOCYTE ESTERASE,URINE TRACE (NEGATIVE); NITRITE,URINE NEGATIVE (NEGATIVE); PROTEIN,URINE NEGATIVE (NEGATIVE); UROBILINOGEN,URINE NEGATIVE mg/dL (<2.0)
--- NOTE | 2016-12-25 12:11 | RADIOLOGY REPORT (SQ) ---
EXAM DESCRIPTION: CHEST PA/LAT COMPLETED DATE/TIME: 12/25/2016 11:49 am REASON FOR STUDY: weakness fever COMPARISON: None. EXAM PARAMETERS: NUMBER OF VIEWS: two views TECHNIQUE: Digital Frontal and Lateral radiographic views of the chest acquired. RADIATION DOSE: NA LIMITATIONS: none FINDINGS: LUNGS AND PLEURA: No opacities, masses or pneumothorax. No pleural effusion. MEDIASTINUM AND HILAR STRUCTURES: No masses or contour abnormalities. HEART AND VASCULAR STRUCTURES: Heart normal size. No evidence for failure. BONES: No acute findings. Severe degenerative changes involving thoracic spine. HARDWARE: None in the chest. OTHER: No other significant finding. IMPRESSION: No evidence of acute cardiopulmonary disease. TECHNICAL DOCUMENTATION: JOB ID: [id number] [employer]- All Rights Reserved
--- NOTE | 2016-12-25 12:23 | RADIOLOGY REPORT (SQ) ---
EXAM DESCRIPTION: CT HEAD WITHOUT COMPLETED DATE/TIME: 12/25/2016 11:57 am REASON FOR STUDY: weakness COMPARISON: None. TECHNIQUE: Axial images acquired through the brain without intravenous contrast. Images reviewed wi th bone, brain and subdural windows. Images stored on PACS. All CT scanners at this facility use dose modulation, iterative reconstruction, and/or weight based d osing when appropriate to reduce radiation dose to as low as reasonably achievable (ALARA). [facility]: Dose Right [facility]: CareDose [facility]: Dose Right [facility]: Teradose 4D [facility]: Evident.io RADIATION DOSE: Up-to-date CT equipment and radiation dose reduction techniques were employed. CTDIv ol: 64.6 mGy. DLP: 1292 mGy-cm. mGy. LIMITATIONS: None. FINDINGS: VENTRICLES: Mild atrophy. CEREBRUM: No masses. No hemorrhage. No midline shift. Normal dominguez/white matter differentiation. N o evidence for acute infarction. Moderate chronic small vessel ischemic disease involving white vinny er. CEREBELLUM: No masses. No hemorrhage. No alteration of density. No evidence for acute infarction. EXTRAAXIAL SPACES: No fluid collections. No masses. ORBITS AND GLOBE: Old fracture involving the right medial orbital wall. No acute abnormalities. CALVARIUM: No fracture. PARANASAL SINUSES: No fluid or mucosal thickening. SOFT TISSUES: No mass or hematoma. OTHER: Severe degenerative changes involving the upper cervical spine with mild spinal stenosis IMPRESSION: 1. No evidence of acute event involving the brain. 2. Mild atrophy and moderate chronic small vessel ischemic disease. 3. Severe degenerative changes involving the upper cervical spine with associated mild spinal stenos is. TECHNICAL DOCUMENTATION: JOB ID: [id number] Quality ID # [id number]: Final reports with documentation of one or more dose reduction techniques (e.g., Au tomated exposure control, adjustment of the mA and/or kV according to patient size, use of iterative reconstruction technique) 2010 [employer]- All Rights Reserved
--- NOTE | 2016-12-25 12:55 | EKG REPORT ---
SEVERITY:- ABNORMAL ECG - SINUS RHYTHM LEFT ANTERIOR FASCICULAR BLOCK LOW VOLTAGE IN FRONTAL LEADS NONSPECIFIC T ABNORMALITIES, LATERAL LEADS : Confirmed by: Kranthi Espinoza MD 25-Dec-2016 12:54:19
[2016-12-25 13:08] LABS: VENOUS BLOOD BASE EXCESS -1.2 mmol/L; VENOUS BLOOD HCO3 24.8 mmol/L (20-32); VENOUS BLOOD PCO2 46.2 mmHg (35-63); VENOUS BLOOD PH 7.35 (7.30-7.42)
[2016-12-25 13:16] LABS: ABSOLUTE EOSINOPHILS # (AUTO) 0.1 10^3/uL (0.0-0.6); ABSOLUTE LYMPHOCYTES (AUTO) 1.1 10^3/uL (0.5-4.7); ABSOLUTE MONOCYTES (AUTO) 0.3 10^3/uL (0.1-1.4); ABSOLUTE NEUT (AUTO) 3.4 10^3/uL (1.7-8.2); BASOPHILS % (AUTO) 0.6 % (0-2); EOSINOPHILS % (AUTO) 1.3 % (0-6); HEMATOCRIT 37.1 % (37.9-51.0); HEMOGLOBIN 12.2 g/dL (13.5-17.0); HGB HCT DIFFERENCE -0.5; LYMPHOCYTES % (AUTO) 22.7 % (13-45); MEAN CORPUSCULAR HEMOGLOBIN 32.1 pg (27.0-33.4); MEAN CORPUSCULAR VOLUME 97 fl (80-97); MONOCYTES % (AUTO) 6.7 % (3-13); RED BLOOD COUNT 3.81 10^6/uL (4.35-5.55); RED CELL DISTRIBUTION WIDTH 13.3 % (11.5-14.0); SEGMENTED NEUTROPHILS % (AUTO) 68.7 % (42-78)
[2016-12-25 13:29] LABS: ALANINE AMINOTRANSFERASE 21 U/L (21-72); ALBUMIN 4.1 g/dL (3.5-5.0); ALKALINE PHOSPHATASE 249 U/L (38-126); ANION GAP 11 (5-19); ASPARTATE AMINO TRANSFERASE 25 U/L (17-59); BILIRUBIN,DIRECT 0.3 mg/dL (0.0-0.4); BILIRUBIN,TOTAL 0.7 mg/dL (0.2-1.3); BLOOD UREA NITROGEN 24 mg/dL (7-20); CALCIUM 9.1 mg/dL (8.4-10.2); CARBON DIOXIDE 23 mmol/L (22-30); CHLORIDE 104 mmol/L (98-107); CREATININE RESULT 1.16 mg/dL (0.52-1.25); GLUCOSE 90 mg/dL (75-110); LIPASE 72.5 U/L (23-300); MAGNESIUM 2.2 mg/dL (1.6-2.3); SODIUM 137.8 mmol/L (137-145); TOTAL PROTEIN 7.9 g/dL (6.3-8.2)
--- NOTE | 2016-12-25 14:30 | ER Document Report ---
ED General - General Chief Complaint: General Weakness Stated Complaint: WEAKNESS Time Seen by Provider: 12/25/16 10:41 TRAVEL OUTSIDE OF THE [place] IN LAST 30 DAYS: No - HPI Patient complains to provider of: Generalized weakness Onset: Other - 3 weeks Notes: Patient is coming in for evaluation of generalized weakness ongoing for the last 3 weeks. According family members at bedside patient has had decreased appetite has seen his PCP and started on Megace however appetite has not increased. Otherwise family members state no new problems noted fever chills nausea vomiting abdominal pain chest pain diarrhea. Patient is alert and no signs of any obvious distress upon her evaluation. - Related Data Allergies/Adverse Reactions: Penicillins Allergy (Verified 12/25/16 13:24) Past Medical History - Social History Smoking Status: Current Every Day Smoker Chew tobacco use (# tins/day): No Frequency of alcohol use: None Drug Abuse: None Family History: Arthritis, DM, Hyperlipidemia, Hypertension - Past Medical History Cardiac Medical History: Reports: Hx Congestive Heart Failure, Hx Hypertension Renal/ Medical History: Denies: Hx Peritoneal Dialysis Musculoskeltal Medical History: Reports Hx Arthritis Skin Medical History: Reports Hx Cellulitis - Immunizations Immunizations up to date: Yes Hx Diphtheria, Pertussis, Tetanus Vaccination: Yes Review of Systems - Review of Systems Constitutional: Weakness EENT: No symptoms reported Cardiovascular: No symptoms reported Respiratory: No symptoms reported Gastrointestinal: No symptoms reported Genitourinary: No symptoms reported Male Genitourinary: No symptoms reported Musculoskeletal: No symptoms reported Skin: No symptoms reported Hematologic/Lymphatic: No symptoms reported Neurological/Psychological: No symptoms reported -: Yes All other systems reviewed and negative Physical Exam - Vital signs Vitals: Temp Pulse BP Pulse Ox 98.4 F 78 127/67 H 75 L 12/25/16 10:33 12/25/16 10:33 12/25/16 10:33 12/25/16 10:33 Interpretation: Normal - General General appearance: Appears well, Alert - HEENT Head: Normocephalic, Atraumatic Eyes: Normal Pupils: PERRL - Respiratory Respiratory status: No respiratory distress Chest status: Nontender Breath sounds: Normal Chest palpation: Normal - Cardiovascular Rhythm: Regular Heart sounds: Normal auscultation Murmur: No - Abdominal Inspection: Normal Distension: No distension Bowel sounds: Normal Tenderness: Nontender Organomegaly: No organomegaly - Back Back: Normal, Nontender - Extremities General upper extremity: Normal inspection, Nontender, Normal color, Normal ROM , Normal temperature General lower extremity: Normal inspection, Nontender, Normal color, Normal ROM , Normal temperature, Normal weight bearing. No: Hussein's sign - Neurological Neuro grossly intact: Yes Cognition: Normal Orientation: AAOx4 [place] Coma Scale Eye Opening: Spontaneous Antonio Coma Scale Verbal: Oriented Antonio Coma Scale Motor: Obeys Commands Antonio Coma Scale Total: 15 Speech: Normal Motor strength normal: LUE, RUE, LLE, RLE Sensory: Normal - Psychological Associated symptoms: Normal affect, Normal mood - Skin Skin Temperature: Warm Skin Moisture: Dry Skin Color: Normal Course - Re-evaluation Re-evalutation: 12/30/16 06:53 Patient's physical examination lab work does not reveal any critical pathology. Patient is encouraged to increase his Ensure shakes at home to gain his strength back also encouraged family to follow-up with primary care physician for possible changing of his appetite stimulation medication. Of note multiple times nursing staff has documented hypoxia however patient was never hypoxic upon my multiple evaluations. This is a documentation error on the nursing staff support patient has no signs or symptoms of respiratory distress hypoxemia hypercarbia 12/30/16 06:54 - Vital Signs Vital signs: Temp Pulse Resp BP Pulse Ox 97.8 F 78 11 L 133/76 H 87 L 12/25/16 15:22 12/25/16 10:38 12/25/16 14:02 12/25/16 13:06 12/25/16 11:01 - Laboratory Result Diagrams: 12/25/16 12:48 12/25/16 12:48 Laboratory results interpreted by me: 12/25/16 12/25/16 12/25/16 11:09 12:48 12:48 RBC 3.81 L Hgb 12.2 L Hct 37.1 L Plt Count 137 L BUN 24 H Alkaline Phosphatase 249 H Ur Leukocyte Esterase TRACE H Discharge - Discharge Clinical Impression: Weakness Condition: Good Disposition: HOME, SELF-CARE Instructions: Weakness ([facility]) Additional Instructions: Follow-up with your primary care physician. Please eat regular diet. Referrals: ARIN LEON MD [Primary Care Provider] - Follow up in 3-5 days
[2016-12-25 15:20] VITALS: BP 133/76
== END 2016-12-25 15:39 | disposition home or self-care (01) ==
LOC: ER 10:25
DX: R53.1 Weakness (principal); R63.0 Anorexia; F17.200 Nicotine dependence, unspecified, uncomplicated
CPT/HCPCS: 36415; 70450; 71020; 80053; 81001; 82803; 83690; 83735; 85025; 87040; 87086; 93005; 93010; 99285

== ENCOUNTER 2017-05-21 20:36 | Emergency (ER) | payer MEDICARE ==
[2017-05-21] MEDS ORDERED: NORMAL SALINE 1000 ML 1,000 ML IV PRN (21:46)
--- NOTE | 2017-05-21 22:09 | ER Document Report ---
ED General - General Chief Complaint: Weakness Stated Complaint: GENERAL WEAKNESS Time Seen by Provider: 05/21/17 21:19 TRAVEL OUTSIDE OF THE [place] IN LAST 30 DAYS: No - HPI Notes: Patient is a 76-year-old male who presents the ED with daughter complaining of ongoing shoulder pain, back pain, hip pain, weakness, and decreased appetite. Pt also states that he has mild generalized chest pain that does not radiate. Daughter states that he is at his baseline for his mentation, speech, and behavior. Daughter states that he was ambulatory this afternoon, but started feeling weak this evening. Daughter states that he has been having pain for the last week. Daughter states that he was eating and drinking normally, but did not eat much of his dinner this evening. He still urinating normally and having normal bowel movements. Daughter denies any recent illness. Patient is a chronic smoker, but denies any other IV drugs. Daughter states that the patient can be very stubborn at times which is normal for him. Daughter denies any other significant medical history. She denies any significant cardiac history. Denies any headache, fever, head injury, neck pain, changes in vision/ speech/mentation/hearing, URI, sore throat, palpitations, syncope, cough, shortness of breath, wheeze, dyspnea, abdominal pain, nausea/vomiting/diarrhea, urinary retention, dysuria, hematuria, loss of control of bowel or bladder, numbness/tingling, saddle anesthesia, muscle paralysis/weakness, or rash. Daughter denies prolonged travel, prev DVT/PE, recent surgery/trauma. - Related Data Allergies/Adverse Reactions: Penicillins Allergy (Verified 05/21/17 20:37) Past Medical History - Social History Smoking Status: Current Every Day Smoker Family History: Arthritis, DM, Hyperlipidemia, Hypertension - Past Medical History Cardiac Medical History: Reports: Hx Congestive Heart Failure, Hx Hypertension Renal/ Medical History: Denies: Hx Peritoneal Dialysis Musculoskeltal Medical History: Reports Hx Arthritis Skin Medical History: Reports Hx Cellulitis - Immunizations Immunizations up to date: Yes Hx Diphtheria, Pertussis, Tetanus Vaccination: Yes Review of Systems - Review of Systems Notes: REVIEW OF SYSTEMS: CONSTITUTIONAL : + weakness, see hpi. Denies fever, chills, or sweats. Denies recent illness. EENT: Denies eye, ear, throat, or mouth pain or symptoms. Denies nasal or sinus congestion or discharge. Denies throat, tongue, or mouth swelling or difficulty swallowing. CARDIOVASCULAR: see hpi. Denies palpitations or racing or irregular heart beat. Denies ankle edema. RESPIRATORY: Denies cough, cold, or chest congestion. Denies shortness of breath, difficulty breathing, or wheezing. GASTROINTESTINAL: Denies abdominal pain or distention. Denies nausea, vomiting , or diarrhea. Denies blood in vomitus, stools, or per rectum. Denies black, tarry stools. Denies constipation. GENITOURINARY: Denies difficulty urinating, painful urination, burning, frequency, blood in urine, or discharge. MUSCULOSKELETAL: see hpi SKIN: Denies rash, lesions or sores. NEUROLOGICAL: Denies confusion or altered mental status. Denies passing out or loss of consciousness. Denies dizziness or lightheadedness. Denies headache. Denies weakness or paralysis or loss of use of either side. Denies problems with gait or speech. Denies sensory loss, numbness, or tingling. Denies seizures. ALL OTHER SYSTEMS REVIEWED AND NEGATIVE. Dictation was performed using [employer] voice recognition software Physical Exam - Vital signs Vitals: Temp Pulse Resp BP Pulse Ox 98.6 F 117 H 20 148/58 H 83 L 05/21/17 20:50 05/21/17 20:50 05/21/17 20:50 05/21/17 20:50 05/21/17 20:50 Pt was never at 83% on RA. He maintained >94% on RA. Notes: PHYSICAL EXAMINATION: GENERAL: Well-appearing, well-nourished and in no acute distress. Alert and oriented. HEAD: Atraumatic, normocephalic. EYES: Pupils equal round and reactive to light, extraocular movements intact, sclera anicteric, conjunctiva are normal. ENT: EAC clear b/l. TM's intact b/l without erythema, fluid, or perforation. Nares patent and without discharge. oropharynx clear without exudates. No tonsilar hypertrophy or erythema. Moist mucous membranes. No sinus tenderness. NECK: Normal range of motion, supple without lymphadenopathy. No rigidity. Chest: + tenderness to palp of the chest wall. No flail chest. LUNGS: Breath sounds clear to auscultation bilaterally and equal. No wheezes rales or rhonchi. + decreased breath sounds b/l. HEART: Regular rate and rhythm without murmurs, rubs, gallops. ABDOMEN: Soft, nontender, nondistended abdomen. No guarding, no rebound. No masses appreciated. Normal bowel sounds present. No CVA tenderness bilaterally. Musculoskeletal: FROM to passive/active. Strength 5+/5. Moves all extremities w/ o any difficulties. Extremities: No cyanosis, clubbing, or edema b/l. Peripheral pulses 2+. Capillary refill less than 3 seconds. NEUROLOGICAL: MMSE intact. Pt would refuse to answer some questions (that is apparently normal per daughter). Cranial nerves grossly intact. Normal speech , normal gait. Normal sensory, motor exams. Pronator negative. PSYCH: Normal mood, normal affect. SKIN: Warm, Dry, normal turgor, no rashes or lesions noted. 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 Vitals are stable. PE is otherwise unremarkable for any focal neurological deficits. CBC, CMP, chest x-ray, cardiac enzymes 2/EKG 2 unremarkable for any acute pathology. Patient was found to have an elevated d-dimer so a CTA was ordered. See the CTA results. Patient is tolerating p.o. without any difficulties. Low suspicion for any sepsis, meningitis, severe dehydration, airway compromise, ACS, PE, pneumothorax , pericarditis, dissection, acute abdomen, CVA, TIA, brain hemorrhage, or other systemic emergent condition at this time. Patient is aware that his condition can change from initial presentation and he needs to monitor symptoms closely and seek medical attention with any acute changes. I did review the CT scan findings with the patient. Patient will need to follow-up with his PCM in 3-5 days for further evaluation and management. Consider consult with oncologist. Conservative measures for symptoms. Return to the ED with any worsening/ concerning symptoms otherwise as reviewed in discharge. Patient/ are in agreement. (I did call to review case with the as well). - Vital Signs Vital signs: Temp Pulse Resp BP Pulse Ox 98.6 F 117 H 20 106/61 94 05/21/17 20:50 05/21/17 20:50 12/01/17 02:31 05/22/17 02:31 05/22/17 02:31 - Laboratory Result Diagrams: 05/21/17 22:00 05/21/17 22:36 Laboratory results interpreted by me: 05/21/17 05/21/17 05/22/17 22:00 22:36 00:20 RBC 3.63 L Hgb 12.2 L Hct 35.1 L MCH 33.5 H Seg Neutrophils % 86.3 H Lymphocytes % 7.2 L D-Dimer 3.96 H BUN 23 H Direct Bilirubin 0.5 H Alkaline Phosphatase 294 H Creatine Kinase 262 H Discharge - Discharge Clinical Impression: sclerotic bone lesions, Weakness generalized, Hilar adenopathy Condition: Stable Disposition: HOME, SELF-CARE Additional Instructions: Rest, Ice Healthy diet, maintain fluid intake Tylenol/ibuprofen as needed Light stretches daily Strength exercises as able Moist heat and massage may help F/u with your PCP in 3-5 days for a recheck Consider consult(s) with Oncology for further evaluation and management Return to the ED with any worsening symptoms and/or development of fever, headache, chest pain, palpitations, syncope, shortness of breath, trouble breathing, abdominal pain, n/v/d, blood in stool/urine, loss of control of bowel /bladder, urinary retention, muscle weakness/paralysis, saddle anesthesia, numbness/tingling, or other worsening symptoms that are concerning to you. Prescriptions: Morphine Sulfate [Morphine Ir 15 Mg Tablet] 15 mg PO TID #15 tablet Referrals: ELISA العراقي MD [ACTIVE STAFF] - Follow up in 1 week ARIN LEON MD [Primary Care Provider] - Follow up in 3-5 days
[2017-05-21 22:18] LABS: ABSOLUTE LYMPHOCYTES (AUTO) 0.6 10^3/uL (0.5-4.7); ABSOLUTE MONOCYTES (AUTO) 0.5 10^3/uL (0.1-1.4); BASOPHILS % (AUTO) 0.3 % (0-2); EOSINOPHILS % (AUTO) 0.1 % (0-6); HEMATOCRIT 35.1 % (37.9-51.0); HEMOGLOBIN 12.2 g/dL (13.5-17.0); HGB HCT DIFFERENCE 1.5; LYMPHOCYTES % (AUTO) 7.2 % (13-45); MEAN CORPUSCULAR HEMOGLOBIN 33.5 pg (27.0-33.4); MEAN CORPUSCULAR HGB CONC 34.6 g/dL (32.0-36.0); MEAN CORPUSCULAR VOLUME 97 fl (80-97); MONOCYTES % (AUTO) 6.1 % (3-13); RED BLOOD COUNT 3.63 10^6/uL (4.35-5.55); SEGMENTED NEUTROPHILS % (AUTO) 86.3 % (42-78); WHITE BLOOD COUNT 8.1 10^3/uL (4.0-10.5)
--- NOTE | 2017-05-21 23:04 | RADIOLOGY REPORT (SQ) ---
EXAM DESCRIPTION: CHEST SINGLE VIEW COMPLETED DATE/TIME: 05/21/2017 10:31 pm REASON FOR STUDY: weakness COMPARISON: 12/25/2016 EXAM PARAMETERS: NUMBER OF VIEWS: One view. TECHNIQUE: Single frontal radiographic view of the chest acquired. RADIATION DOSE: NA LIMITATIONS: None. FINDINGS: LUNGS AND PLEURA: No acute opacities, masses or pneumothorax. No pleural effusion. MEDIASTINUM AND HILAR STRUCTURES: Stable. HEART AND VASCULAR STRUCTURES: Stable. BONES: No acute findings. HARDWARE: None in the chest. OTHER: No other significant finding. IMPRESSION: NO ACUTE RADIOGRAPHIC FINDING IN THE CHEST. TECHNICAL DOCUMENTATION: JOB ID: [id number] [place]-72 2010 [employer]- All Rights Reserved
[2017-05-21 23:07] LABS: VENOUS BLOOD BASE EXCESS -0.8 mmol/L; VENOUS BLOOD HCO3 23.9 mmol/L (20-32); VENOUS BLOOD PCO2 39.4 mmHg (35-63); VENOUS BLOOD PH 7.4 (7.30-7.42)
--- NOTE | 2017-05-21 23:16 | EKG REPORT ---
SEVERITY:- ABNORMAL ECG - SINUS TACHYCARDIA MULTIPLE VENTRICULAR PREMATURE COMPLEXES LOW VOLTAGE IN FRONTAL LEADS ABNORMAL T, CONSIDER ISCHEMIA, LATERAL LEADS : Confirmed by: Kranthi Espinoza MD 21-May-2017 23:15:43
[2017-05-21 23:35] LABS: BLOOD UREA NITROGEN 23 mg/dL (7-20); CALCIUM 8.9 mg/dL (8.4-10.2); CARBON DIOXIDE 23 mmol/L (22-30); CHLORIDE 105 mmol/L (98-107); CREATININE RESULT 1.08 mg/dL (0.52-1.25); GLUCOSE 103 mg/dL (75-110); POTASSIUM 4.6 mmol/L (3.6-5.0); SODIUM 140.7 mmol/L (137-145)
[2017-05-21 23:36] LABS: ALANINE AMINOTRANSFERASE 30 U/L (21-72); ALBUMIN 4.2 g/dL (3.5-5.0); ALKALINE PHOSPHATASE 294 U/L (38-126); ANION GAP 13 (5-19); ASPARTATE AMINO TRANSFERASE 32 U/L (17-59); BILIRUBIN,DIRECT 0.5 mg/dL (0.0-0.4); BILIRUBIN,TOTAL 0.6 mg/dL (0.2-1.3); CREATINE KINASE 262 U/L (55-170)
[2017-05-21 23:44] LABS: CREATINE KINASE MB 2.57 ng/mL (<4.55)
[2017-05-21 23:49] LABS: TROPONIN I 0.042 ng/mL
--- NOTE | 2017-05-22 01:49 | RADIOLOGY REPORT (SQ) ---
EXAM DESCRIPTION: CTA CHEST COMPLETED DATE/TIME: 05/22/2017 1:18 am REASON FOR STUDY: weakness , shortness of breath. COMPARISON: Chest x-ray 05/21/2017. TECHNIQUE: CT scan of the chest performed using helical scanning technique with dynamic intravenous contrast injection. Images reviewed with lung, soft tissue and bone windows. Reconstructed coronal and sagittal MPR images reviewed. Additional 3 dimensional post-processing performed to develop Maximal Intensity Projection images (FL P). All images stored on PACS. All CT scanners at this facility use dose modulation, iterative reconstruction, and/or weight based d osing when appropriate to reduce radiation dose to as low as reasonably achievable (ALARA). [facility]: Dose Right [facility]: CareDose [facility]: Dose Right [facility]: Teradose 4D [facility]: [place] CONTRAST TYPE AND DOSE: contrast/concentration: Isovue 370.00 mg/ml; Total Contrast Delivered: 100.0 ml; Total Saline Delivered: 60.0 ml Contrast bolus optimized for the pulmonary arteries. Not diagnostic for the aorta. RENAL FUNCTION: Creatinine 1.08 RADIATION DOSE: . LIMITATIONS: There is motion artifact. There is artifact from the patient's left arm and radiopaque ring along the body. FINDINGS: LUNGS AND PLEURA: There are bilateral emphysematous changes. Mild bibasilar atelectasis. No pleural effusion or pneumothorax. AORTA AND GREAT VESSELS: No aneurysm. Contrast bolus not optimized for the aorta. HEART: The heart is mildly enlarged. No pericardial effusion. Coronary arteries calcifications are n oted. PULMONARY ARTERIES: No emboli visualized in the main pulmonary arteries or the segmental branches. HILAR AND MEDIASTINAL STRUCTURES: Left hilar lymph node measuring 18 mm in short axis. Mediastinal l ymph node measuring 13 mm in short axis. Subcarinal lymph node measuring 15 mm in short axis. HARDWARE: None in the chest. UPPER ABDOMEN: No significant findings. Limited exam. THYROID AND OTHER SOFT TISSUES: The visualized thyroid gland is unremarkable. BONES: Degenerative changes in the spine. Multiple osseous sclerotic lesions. 3D MIPS: Confirm above findings. IMPRESSION: 1. No pulmonary emboli. 2. Mild cardiomegaly. 3. Emphysema. Mild bibasilar atelectasis. 4. Mild mediastinal and left hilar adenopathy. 5. Multiple osseous sclerotic lesions, concerning for osseous metastases. Please correlate with cli nical history of malignancy. Bone scan can be obtained for further evaluation. COMMENT: Quality ID # [id number]: Final reports with documentation of one or more dose reduction techniques (e.g., Automated exposure control, adjustment of the mA and/or kV according to patient size, use of iterative reconstruction technique) TECHNICAL DOCUMENTATION: JOB ID: [id number] [place]-64 2010 [employer]- All Rights Reserved
[2017-05-22] MEDS ORDERED: NORMAL SALINE 1000 ML 1,000 ML IV ONE (01:56)
[2017-05-22] MEDS ORDERED: FENTANYL CITRATE INJ/PF 100 MCG/2 ML AMPUL IV ONE (02:09)
[2017-05-22 02:34] VITALS: BP 106/61
--- NOTE | 2017-05-22 06:38 | EKG REPORT ---
SEVERITY:- ABNORMAL ECG - SINUS RHYTHM MULTIFORM VENTRICULAR PREMATURE COMPLEXES LEFT ANTERIOR FASCICULAR BLOCK LOW VOLTAGE IN FRONTAL LEADS NONSPECIFIC T ABNORMALITIES, ANT-LAT LEADS : Confirmed by: Kranthi Espinoza MD 22-May-2017 06:37:32
== END 2017-05-22 03:07 | disposition home or self-care (01) ==
LOC: ER 20:36
DX: M89.9 Disorder of bone, unspecified (principal); R59.9 Enlarged lymph nodes, unspecified; R53.1 Weakness; F17.200 Nicotine dependence, unspecified, uncomplicated
CPT/HCPCS: 93005 ×2; 99285; 96374; 36415; 82553; 82550; 85025; 80053; 84484; 85379; 82803; 71010; 71275; 93010 ×2; J3010

== ENCOUNTER 2017-08-07 10:00 | Inpatient (IN) | payer MEDICARE ==
[2017-08-07] MEDS ORDERED: NORMAL SALINE 1000 ML 1,000 ML IV PRN ×2 (10:27→13:45)
[2017-08-07] MEDS ORDERED: DIPH/PERTUSS(ACELL)/TETANUS VAC/PF 0.5 ML SYR (>=10YO) IM ONE (10:29)
[2017-08-07] MEDS ORDERED: LIDOCAINE 1%/EPINEPHRINE INJ 20 ML VIAL INJ ONE (10:56)
--- NOTE | 2017-08-07 10:56 | ER Document Report ---
ED Fall - General Chief Complaint: Fall Stated Complaint: FALL/HEAD INJURY Time Seen by Provider: 08/07/17 10:27 Notes: Patient says he passed out in the bathroom this morning. He said his legs got weak and gave out and he fell and hit his left forehead in the bathroom. He does not think he was unconscious. Patient had not had a bowel movement or urinated yet, before falling. He says that this falling is happening to him a couple of times a week over the past 3-4 weeks. His son, who is here, witnessed the patient fall trying to get into the car last night. Patient says these episodes are associated with dizziness. Upon arrival here, patient said he had have a bowel movement and went to the bathroom. His blood pressure was 65/45 here at that time. He denies any headache, except where he hit his head. He denies any chest pain or shortness of breath or difficulty breathing. Denies abdominal pains. Has not been ill recently. No fevers or chills. Patient has a history of high blood pressure on medications for same. TRAVEL OUTSIDE OF THE [place] IN LAST 30 DAYS: No - Related data Allergies/Adverse Reactions: Penicillins Allergy (Verified 08/07/17 10:02) Past Medical History - Social History Smoking Status: Unknown if Ever Smoked Chew tobacco use (# tins/day): No Frequency of alcohol use: None Family History: Reviewed & Not Pertinent, Arthritis, DM, Hyperlipidemia, Hypertension Patient has suicidal ideation: No Patient has homicidal ideation: No - Past Medical History Cardiac Medical History: Reports: Hx Congestive Heart Failure, Hx Hypertension Musculoskeltal Medical History: Reports Hx Arthritis Skin Medical History: Reports Hx Cellulitis Surgical Hx: Negative Past Surgical History: Reports: None - Immunizations Immunizations up to date: Yes Hx Diphtheria, Pertussis, Tetanus Vaccination: Yes Review of Systems - Review of Systems Notes: REVIEW OF SYSTEMS: CONSTITUTIONAL : Denies fever. EENT: Denies eye, ear, nose or mouth or throat pain or other symptoms. CARDIOVASCULAR: Denies chest pain. RESPIRATORY: Denies cough, chest congestion, or shortness of breath. GASTROINTESTINAL: Denies abdominal pain or nausea, vomiting, or diarrhea. GENITOURINARY: Denies difficulty or painful urinating, urinary frequency, blood in urine. MUSCULOSKELETAL: Denies back or neck pain. Denies joint pain or swelling. SKIN: Denies rash or skin lesions. Laceration left forehead/face area see HPI NEUROLOGICAL: Denies LOC or altered mental status. Denies headache. Denies sensory loss or motor deficits. ALL OTHER SYSTEMS REVIEWED AND NEGATIVE. Physical Exam - Vital signs Vitals: Temp Pulse Resp BP Pulse Ox 97.6 F 51 L 18 65/45 L 96 08/07/17 10:23 08/07/17 10:23 08/07/17 10:23 08/07/17 10:23 08/07/17 10:23 Interpretation: Hypotensive - Notes Notes: PHYSICAL EXAMINATION: GENERAL: Well-appearing, in no acute distress. Bandage over head where patient has a laceration. HEAD: A laceration left face/forehead area. EYES: Pupils equal round and reactive to light, extraocular movements intact. ENT: oropharynx clear without exudates. Moist mucous membranes. NECK: Normal range of motion, supple. LUNGS: Breath sounds clear and equal bilaterally. HEART: Regular rate and rhythm without murmurs. ABDOMEN: Soft, nontender. No guarding or rebound. No masses. BACK: No tenderness throughout entire back. EXTREMITIES: Normal range of motion without pain. NEUROLOGICAL: Normal speech, normal gait. Normal sensory, motor, and reflex exams. Awake, alert, and oriented x3. Cranial nerves normal. PSYCH: Normal mood, normal affect. SKIN: Warm, dry, no rashes. Course - Vital Signs Vital signs: Temp Pulse Resp BP Pulse Ox 97.6 F 51 L 17 153/68 H 99 08/07/17 10:23 08/07/17 10:23 08/07/17 15:01 08/07/17 15:01 08/07/17 15:00 - Laboratory Result Diagrams: 08/07/17 10:49 08/07/17 10:49 Laboratory results interpreted by me: 08/07/17 08/07/17 10:49 10:49 RBC 3.86 L Hgb 12.6 L Hct 37.2 L Creatinine 1.28 H Est GFR (Non-Af Amer) 55 L Glucose 111 H Alkaline Phosphatase 418 H Creatine Kinase 200 H - EKG Interpretation by Me Rate: Normal Rhythm: A.Flutter - EKG machine reads the rhythm as atrial flutter with 3-1 block. I went over the EKG with Dr. Hall and we repeated the EKG which is about 3 hours after the initial EKG and it still shows what looks like atrial flutter with 3-1 block. Procedures - Laceration/Wound Repair Face Wound length (cm): 4 Wound's Depth, Shape: Linear, Irregular. No: Into muscle Laceration pre-procedure: Sterile drapes applied Anesthetic type: 1% Lidocaine w/epi Volume Anesthetic (mLs): 5 Irrigated w/ Saline (mLs): 100 Wound Repaired With: Sutures Suture Size/Type: 5:0, Ethilon Number of Sutures: 4 Layer Closure?: No Adult Head Front/Back picture: 1 - 4 cm laceration closed with 5-0 nylon 4. Discharge - Discharge Clinical Impression: Syncope Qualifiers: Syncope type: unspecified Qualified Code(s): R55 - Syncope and collapse Laceration of face Qualifiers: Encounter type: initial encounter Qualified Code(s): S01.81XA - Laceration without foreign body of other part of head, initial encounter Condition: Stable Disposition: ADMITTED INPATIENT Admitting Provider: Hospitalist Unit Admitted: Telemetry
[2017-08-07 11:08] LABS: ABSOLUTE EOSINOPHILS # (AUTO) 0.1 10^3/uL (0.0-0.6); ABSOLUTE LYMPHOCYTES (AUTO) 1.6 10^3/uL (0.5-4.7); ABSOLUTE MONOCYTES (AUTO) 0.4 10^3/uL (0.1-1.4); BASOPHILS % (AUTO) 0.7 % (0-2); EOSINOPHILS % (AUTO) 2.3 % (0-6); HEMATOCRIT 37.2 % (37.9-51.0); HEMOGLOBIN 12.6 g/dL (13.5-17.0); LYMPHOCYTES % (AUTO) 31.4 % (13-45); MEAN CORPUSCULAR HEMOGLOBIN 32.7 pg (27.0-33.4); MEAN CORPUSCULAR HGB CONC 33.9 g/dL (32.0-36.0); MEAN CORPUSCULAR VOLUME 96 fl (80-97); MONOCYTES % (AUTO) 8.1 % (3-13); PLATELET COUNT 188 10^3/uL (150-450); RED BLOOD COUNT 3.86 10^6/uL (4.35-5.55); RED CELL DISTRIBUTION WIDTH 13.8 % (11.5-14.0); SEGMENTED NEUTROPHILS % (AUTO) 57.5 % (42-78); TOTAL CELLS COUNTED % (AUTO) 100 %; WHITE BLOOD COUNT 5.3 10^3/uL (4.0-10.5)
[2017-08-07 11:14] LABS: INTERNATIONAL RATION (INR) 1.02; PROTHROMBIN TIME 14.1 SEC (11.4-15.4)
--- NOTE | 2017-08-07 11:18 | RADIOLOGY REPORT (SQ) ---
EXAM DESCRIPTION: CT HEAD WITHOUT COMPLETED DATE/TIME: 08/07/2017 11:09 am REASON FOR STUDY: fall COMPARISON: None. TECHNIQUE: Axial images acquired through the brain without intravenous contrast. Images reviewed wi th bone, brain and subdural windows. Images stored on PACS. All CT scanners at this facility use dose modulation, iterative reconstruction, and/or weight based d osing when appropriate to reduce radiation dose to as low as reasonably achievable (ALARA). [facility]: Dose Right [facility]: CareDose [facility]: Dose Right [facility]: Teradose 4D [facility]: [employer] RADIATION DOSE: CT Rad equipment meets quality standard of care and radiation dose reduction techniq ues were employed. CTDIvol: 64.6 mGy. DLP: 1163 mGy-cm.mGy. LIMITATIONS: None. FINDINGS: VENTRICLES: Prominent. CEREBRUM: No masses. No hemorrhage. No midline shift. Areas of low density in the white matter mos t likely due to chronic micro-vascular ischemic change. No evidence for acute infarction. CEREBELLUM: No masses. No hemorrhage. No alteration of density. No evidence for acute infarction. EXTRAAXIAL SPACES: Age-related involutional change. No fluid collections. No masses. ORBITS AND GLOBE: No intra- or extraconal masses. Normal contour of globe without masses. CALVARIUM: No fracture. PARANASAL SINUSES: No fluid or mucosal thickening. SOFT TISSUES: No mass or hematoma. OTHER: No other significant finding. IMPRESSION: CHRONIC CHANGES OF ATROPHY AND MICROVASCULAR ISCHEMIA. NO ACUTE PROCESS. EVIDENCE OF ACUTE STROKE: NO. TECHNICAL DOCUMENTATION: JOB ID: [id number] Quality ID # [id number]: Final reports with documentation of one or more dose reduction techniques (e.g., Au tomated exposure control, adjustment of the mA and/or kV according to patient size, use of iterative reconstruction technique) 2010 [employer]- All Rights Reserved
--- NOTE | 2017-08-07 11:23 | RADIOLOGY REPORT (SQ) ---
EXAM DESCRIPTION: CT CERVICAL SPINE WITHOUT COMPLETED DATE/TIME: 08/07/2017 11:09 am REASON FOR STUDY: fall COMPARISON: None. TECHNIQUE: Axial images acquired through the cervical spine without intravenous contrast. Images re viewed with lung, soft tissue and bone windows. Reconstructed coronal and sagittal MPR images review ed. Images stored on PACS. All CT scanners at this facility use dose modulation, iterative reconstruction, and/or weight based d osing when appropriate to reduce radiation dose to as low as reasonably achievable (ALARA). [facility]: Dose Right [facility]: CareDose [facility]: Dose Right [facility]: Teradose 4D [facility]: [employer] RADIATION DOSE: CT Rad equipment meets quality standard of care and radiation dose reduction techniq ues were employed. CTDIvol: 19.0 mGy. DLP: 418 mGy-cm. mGy. LIMITATIONS: Patient motion. FINDINGS: ALIGNMENT: Reversal of the lordotic curve. MINERALIZATION: Osteopenia. VERTEBRAL BODIES: No fractures or dislocation. DISCS: Multilevel disc space narrowing with osteophytes. FACETS, LATERAL MASSES, POSTERIOR ELEMENTS: Subtle lucency in the dorsal spinous processes of C6 and C7. No displaced fracture. HARDWARE: None in the spine. VISUALIZED RIBS: No fractures. LUNG APICES AND SOFT TISSUES: No significant or acute findings. OTHER: No other significant finding. IMPRESSION: Questionable nondisplaced dorsal spinous process fracture C6 and C 7. This may be artif act of patient motion and osteopenia. No evidence of unstable fracture. TECHNICAL DOCUMENTATION: JOB ID: [id number] Quality ID # [id number]: Final reports with documentation of one or more dose reduction techniques (e.g., Au tomated exposure control, adjustment of the mA and/or kV according to patient size, use of iterative reconstruction technique) 2010 [employer]- All Rights Reserved
[2017-08-07 11:27] LABS: ALANINE AMINOTRANSFERASE 27 U/L (21-72); ALBUMIN 4.5 g/dL (3.5-5.0); ALKALINE PHOSPHATASE 418 U/L (38-126); ANION GAP 12 (5-19); ASPARTATE AMINO TRANSFERASE 26 U/L (17-59); BILIRUBIN,DIRECT 0.4 mg/dL (0.0-0.4); BILIRUBIN,TOTAL 0.7 mg/dL (0.2-1.3); BLOOD UREA NITROGEN 18 mg/dL (7-20); CALCIUM 9.6 mg/dL (8.4-10.2); CARBON DIOXIDE 22 mmol/L (22-30); CHLORIDE 105 mmol/L (98-107); CREATINE KINASE 200 U/L (55-170); GLUCOSE 111 mg/dL (75-110); POTASSIUM 4.2 mmol/L (3.6-5.0); SODIUM 139.2 mmol/L (137-145); TOTAL PROTEIN 8.2 g/dL (6.3-8.2)
--- NOTE | 2017-08-07 11:33 | RADIOLOGY REPORT (SQ) ---
EXAM DESCRIPTION: CHEST SINGLE VIEW COMPLETED DATE/TIME: 08/07/2017 11:11 am REASON FOR STUDY: syncope COMPARISON: 05/21/2017 EXAM PARAMETERS: NUMBER OF VIEWS: One view. TECHNIQUE: Single frontal radiographic view of the chest acquired. RADIATION DOSE: NA LIMITATIONS: None. FINDINGS: LUNGS AND PLEURA: No opacities, masses or pneumothorax. No pleural effusion. MEDIASTINUM AND HILAR STRUCTURES: No masses. Contour normal. HEART AND VASCULAR STRUCTURES: Heart normal in size. Normal vasculature. BONES: No acute findings. HARDWARE: None in the chest. OTHER: No other significant finding. IMPRESSION: NO ACUTE RADIOGRAPHIC FINDING IN THE CHEST. TECHNICAL DOCUMENTATION: JOB ID: [id number] [employer]- All Rights Reserved
[2017-08-07 11:38] LABS: CREATINE KINASE MB 2.43 ng/mL (<4.55); TROPONIN I 0.03 ng/mL
--- NOTE | 2017-08-07 12:52 | EKG REPORT ---
SEVERITY:- ABNORMAL ECG - A-FLUTTER , REC REPEAT EKG SECONDARY TO ARTIFACTS PT WAS IN SR IN JUN 07 LEFT ANTERIOR FASCICULAR BLOCK NONSPECIFIC T ABNORMALITIES, LATERAL LEADS BORDERLINE PROLONGED QT INTERVAL : Confirmed by: Rafael Hall 07-Aug-2017 12:52:05
--- NOTE | 2017-08-07 13:12 | EKG REPORT ---
SEVERITY:- ABNORMAL ECG - A-FLUTTER W/ PREDOM 3:1 AV BLOCK, A-RATE 258 VENTRICULAR PREMATURE COMPLEX LEFT ANTERIOR FASCICULAR BLOCK : Confirmed by: Rafael Hall 07-Aug-2017 13:11:42
[2017-08-07] MEDS ORDERED: ACETAMINOPHEN 325 MG TABLET PO PRN (13:20)
[2017-08-07] MEDS ORDERED: ONDANSETRON HCL INJ/PF 4 MG/2 ML SDV IV PRN (13:20)
[2017-08-07] MEDS ORDERED: ZOLPIDEM TARTRATE 5 MG TABLET PO PRN (13:20)
[2017-08-07] MEDS ORDERED: ATORVASTATIN CALCIUM 80 MG TABLET PO ONE (13:47)
[2017-08-07] MEDS ORDERED: NICOTINE 21 MG/24 HR PATCH.TD24 TD ONE (13:47)
[2017-08-07] MEDS ORDERED: ASPIRIN 81 MG TABLET, CHEWABLE PO ONE (13:47)
[2017-08-07] MEDS: HEPARIN SOD (PORCINE) 5,000 UNIT/ML 1 ML SYRINGE SUBCUT SCH ×2 (14:51→23:29)
[2017-08-07] MEDS: NORMAL SALINE 1000 ML 1,000 ML IV PRN (15:00)
--- NOTE | 2017-08-07 16:28 | PDOC H&P ---
History of Present Illness Admission Date/PCP: ARIN LEON MD August 07, 2017 Patient complains of: I had been dizzy off/on this week History of Present Illness: KATT HERNÁNDEZ JR is a 76 year old maleWas brought into emergency room by his grandson after passing out while in the bathroom. Patient states that he has been having episodes of weakness and dizziness. He fell this past week. Today he went to the bathroom and when he turned he hit the left side of his face with a bath. Patient relates that he does not know what happened. Patient denies chest pain, shortness of breath, headache, numbness. He denies history of a stroke or heart attack. He required placement of 4 sutures to left upper eyelid. EKG was obtained which was concerning and had to be discussed with Dr. Hall and demonstrated an atrial rate around 250" with a 3:1 block.Due to presentation our service was consulted and prompted to admit Past Medical History Cardiac Medical History: Reports: Congestive Heart Failure, Hypertension Pulmonary Medical History: Reports: None EENT Medical History: Reports: None Neurological Medical History: Reports: None Endocrine Medical History: Reports: None Renal/ Medical History: Reports: Chronic Kidney Disease Malignancy Medical History: Reports: None GI Medical History: Reports: None Musculoskeltal Medical History: Reports: Arthritis Skin Medical History: Reports: None Psychiatric Medical History: Reports: Tobacco Dependency Traumatic Medical History: Reports: None Hematology: Reports: None Infectious Medical History: Reports: None Past Surgical History Past Surgical History: Reports: None Social History Information Source: Patient Lives with: Family Smoking Status: Current Every Day Smoker Cigarettes Packs Per Day: 1 Frequency of Alcohol Use: Occasional Hx Recreational Drug Use: No Drugs: None Hx Prescription Drug Abuse: No - Advance Directive Resuscitation Status: Full Code Family History Family History: Reviewed & Not Pertinent, Arthritis, DM, Hyperlipidemia, Hypertension Parental Family History Reviewed: Yes Children Family History Reviewed: Yes Sibling(s) Family History Reviewed.: Yes Medication/Allergy Home Medications: Megestrol Acetate 40 mg PO DAILY 08/07/17 Allergies/Adverse Reactions: Penicillins Allergy (Verified 08/07/17 10:02) Review of Systems Constitutional: PRESENT: anorexia, fatigue, weakness Eyes: ABSENT: visual disturbances Ears: ABSENT: hearing changes Nose, Mouth, and Throat: ABSENT: headache(s), mouth pain, sore throat Cardiovascular: ABSENT: chest pain, dyspnea on exertion, orthropnea Respiratory: ABSENT: cough, dyspnea Gastrointestinal: ABSENT: nausea, vomiting Genitourinary: ABSENT: dysuria, hematuria Neurological: PRESENT: dizziness, weakness Physical Exam Vital Signs: Temp Pulse Resp BP Pulse Ox 97.6 F 51 L 13 148/84 H 96 08/07/17 10:23 08/07/17 10:23 08/07/17 12:00 08/07/17 10:35 08/07/17 10:23 Intake & Output 08/06/17 08/07/17 08/08/17 06:59 06:59 06:59 Weight 67.4 kg General appearance: PRESENT: no acute distress, cooperative, thin Head exam: PRESENT: atraumatic, normocephalic Eye exam: PRESENT: conjunctiva pink, EOMI, PERRLA, other - Laceration to left upper eyelid noted which have been sutured. ABSENT: nystagmus, scleral icterus Ear exam: PRESENT: normal external ear exam Mouth exam: PRESENT: moist Teeth exam: PRESENT: poor dentation Neck exam: PRESENT: full ROM. ABSENT: carotid bruit, JVD, lymphadenopathy, tenderness, thyromegaly Respiratory exam: PRESENT: clear to auscultation rosita Cardiovascular exam: PRESENT: RRR. ABSENT: diastolic murmur, systolic murmur Vascular exam: PRESENT: normal capillary refill GI/Abdominal exam: PRESENT: normal bowel sounds, soft. ABSENT: tenderness Extremities exam: PRESENT: full ROM. ABSENT: pedal edema, tenderness Musculoskeletal exam: PRESENT: ambulatory Neurological exam: PRESENT: alert, awake, oriented to person, oriented to place , oriented to time, oriented to situation, other - Patient exhibited perioral tremors Psychiatric exam: PRESENT: appropriate affect, normal mood Skin exam: PRESENT: normal color Results Laboratory Results: 08/07/17 10:49 08/07/17 10:49 08/07/17 08/07/17 10:49 10:49 WBC 5.3 RBC 3.86 L Hgb 12.6 L Hct 37.2 L MCV 96 MCH 32.7 MCHC 33.9 RDW 13.8 Plt Count 188 Seg Neutrophils % 57.5 Lymphocytes % 31.4 Monocytes % 8.1 Eosinophils % 2.3 Basophils % 0.7 Absolute Neutrophils 3.0 Absolute Lymphocytes 1.6 Absolute Monocytes 0.4 Absolute Eosinophils 0.1 Absolute Basophils 0.0 Sodium 139.2 Potassium 4.2 Chloride 105 Carbon Dioxide 22 Anion Gap 12 BUN 18 Creatinine 1.28 H Est GFR ( Amer) > 60 Est GFR (Non-Af Amer) 55 L Glucose 111 H Calcium 9.6 Magnesium 1.9 Total Bilirubin 0.7 AST 26 ALT 27 Alkaline Phosphatase 418 H Total Protein 8.2 Albumin 4.5 08/07/17 08/07/17 10:49 10:49 Creatine Kinase 200 H CK-MB (CK-2) 2.43 Troponin I 0.030 Impressions: Cervical Spine CT 08/07/17 10:29 IMPRESSION: Questionable nondisplaced dorsal spinous process fracture C6 and C 7. This may be artifact of patient motion and osteopenia. No evidence of unstable fracture. Chest X-Ray 08/07/17 10:29 IMPRESSION: NO ACUTE RADIOGRAPHIC FINDING IN THE CHEST. Head CT 08/07/17 10:29 IMPRESSION: CHRONIC CHANGES OF ATROPHY AND MICROVASCULAR ISCHEMIA. NO ACUTE PROCESS. EVIDENCE OF ACUTE STROKE: NO. Assessment & Plan - Diagnosis (1) Laceration of face Qualifiers: Encounter type: initial encounter Qualified Code(s): S01.81XA - Laceration without foreign body of other part of head, initial encounter Is this a current diagnosis for this admission?: Yes Plan: Patient suture while the emergency room. Will continue with wound care (2) Syncope Qualifiers: Syncope type: unspecified Qualified Code(s): R55 - Syncope and collapse Is this a current diagnosis for this admission?: Yes Plan: Patient will be admitted to telemetry unit and will trend troponin. Will consult Dr. Hall due to abnormal EKG. Patient will be given 1 L normal saline bolus and will place on maintenance (3) Tobacco abuse Is this a current diagnosis for this admission?: Yes Plan: Patient educated about quitting including heart attack, stroke, lung cancer, COPD. Will place on nicotine patch - Time Time Spent: 30 to 50 Minutes Medications reviewed and adjusted accordingly: Yes Anticipated discharge: Home with Homehealth Within: within 24 hours - Inpatient Certification Based on my medical assessment, after consideration of the patient's comorbidities, presenting symptoms, or acuity I expect that the services needed warrant INPATIENT care.: No I certify that my determination is in accordance with my understanding of Medicare's requirements for reasonable and necessary INPATIENT services [42 CFR 412.3e].: Yes Medical Necessity: Need For IV Fluids, Need For Continuous Telemetry Monitoring
--- NOTE | 2017-08-07 18:47 | XCELERA REPORT ---
[address] [address] Transthoracic Echocardiogram Report Name: KATT HERNÁNDEZ JR Age: 76 yrs Gender: Male : 1940 Patient Status: Inpatient Patient [address] Study Date: 08/07/2017 02:14 PM Height: 69 in Weight: 148 lb BSA: 1.8 m2 Procedure: A complete two-dimensional transthoracic echocardiogram was performed (2D, M-mode, spectral and color flow Doppler). The study was technically difficult with many images being suboptimal in quality. Reason For Study: syncope Ordering Physician: TIBURCIO ESPAÑA Performed By: Jacki Turcios Interpretation Summary The Ejection Fraction estimate is 25-30% Left ventricular systolic function is severely reduced. Doppler measurements suggest pseudonormalized left ventricular relaxation, which is associated with grade II/IV or mild to moderate diastolic dysfunction There is borderline concentric left ventricular hypertrophy. The left ventricle is mildly dilated. There is moderate to severe global hypokinesis of the left ventricle. The right ventricular systolic function is moderately reduced. The right ventricle is mildly dilated. The right atrium is mildly dilated. The left atrium is mildly dilated. There is a mild amount of mitral regurgitation There is no mitral valve stenosis. No aortic regurgitation is present. There is no aortic valve stenosis There is a trace or physiologic amount of tricuspid regurgitation Tricuspid regurgitation jet envelope not well defined to measure RV systolic pressure accurately. The aortic root is not well visualized but is probably normal size. The inferior vena cava appeared normal and decreased > 50% with respiration (RAP 5-10 mmHg) There is no pericardial effusion. MMode/2D Measurements & Calculations RVDd: 3.4 cm LVIDd: 5.9 cm FS: 11.7 % Ao root diam: IVSd: 0.90 cm LVIDs: 5.2 cm EDV(Teich): 2.5 cm LVPWd: 0.91 cm 171.6 ml Ao root area: ESV(Teich): 128.9 ml 5.1 cm2 EF(Teich): 24.9 % LA dimension: 3.9 cm LVLd ap4: 8.1 cm SV(MOD-sp4): EDV(MOD-sp4): 12.0 ml 88.0 ml LVLs ap4: 7.0 cm ESV(MOD-sp4): 76.0 ml EF(MOD-sp4): 13.6 % Doppler Measurements & Calculations MV E max nicolasa: MV P1/2t max nicolasa: Ao V2 max: LV V1 max P.9 cm/sec 83.9 cm/sec 99.3 cm/sec 1.2 mmHg MV P1/2t: 82.9 msec Ao max PG: LV V1 max: MVA(P1/2t): 2.7 cm2 3.9 mmHg 55.3 cm/sec MV dec slope: 296.3 cm/sec2 PA V2 max: PI end-d nicolasa: TR max nicolasa: 67.6 cm/sec 123.5 cm/sec 217.2 cm/sec PA max PG: TR max P.8 mmHg 18.9 mmHg Left Ventricle The left ventricle is mildly dilated. There is borderline concentric left ventricular hypertrophy. Left ventricular systolic function is severely reduced. The Ejection Fraction estimate is 25-30%. Doppler measurements suggest pseudonormalized left ventricular relaxation, which is associated with grade II/IV or mild to moderate diastolic dysfunction. There is moderate to severe global hypokinesis of the left ventricle. Right Ventricle The right ventricle is mildly dilated. There is normal right ventricular wall thickness. The right ventricular systolic function is moderately reduced. Atria The right atrium is mildly dilated. The left atrium is mildly dilated. Interarterial septum not well visualized and not well dopplered. Cannot comment on ASD/PFO presence. Mitral Valve There is mild mitral leaflet calcification. There is mild mitral annular calcification. There is no mitral valve stenosis. There is a mild amount of mitral regurgitation. Aortic Valve The aortic valve opens well. There is no aortic valve stenosis. No aortic regurgitation is present. Tricuspid Valve The tricuspid valve is not well visualized, but is grossly normal. There is no tricuspid stenosis. There is a trace or physiologic amount of tricuspid regurgitation. Tricuspid regurgitation jet envelope not well defined to measure RV systolic pressure accurately. Pulmonic Valve The pulmonic valve is not well visualized. Great Vessels The aortic root is not well visualized but is probably normal size. The inferior vena cava appeared normal and decreased > 50% with respiration (RAP 5-10 mmHg). Effusions There is no pericardial effusion. : TIBURCIO ESPAÑA > Rafael Hall
[2017-08-07] MEDS ORDERED: INFLUENZA ADLT QUAD (36MOS+) 2017-18 VAC 0.5 ML SYR IM PRN (19:09)
--- NOTE | 2017-08-07 20:09 | PDOC CONSULTATION ---
Consultation Consult Date: 08/07/17 Attending physician:: ANA BUTLER Consult reason:: Syncope and atrial flutter History of Present Illness Admission Date/PCP: 08/07/17 14:28 ARIN LEON MD Patient complains of: Syncope History of Present Illness: KATT HERNÁNDEZ JR is a 76 year old maleWas brought into emergency room by his grandson after passing out while in the bathroom. Patient states that he has been having episodes of weakness and dizziness. He fell this past week. Today he went to the bathroom and when he turned he hit the left side of his face with a bath. Patient relates that he does not know what happened. Patient denies chest pain, shortness of breath, headache, numbness. He denies history of a stroke or heart attack. He required placement of 4 sutures to left upper eyelid. EKG was obtained which was concerning and had to be discussed with Dr. Hall and demonstrated an atrial rate around 250" with a 3:1 block. Due to presentation our service was consulted and prompted to admit. This history was reviewed, confirmed and supplemented. Patient claims that the syncope happened suddenly without any warning. Patient denied any history of prior heart problem. He had a EKG done in May which had shown sinus rhythm. Patient had a 2D echo earlier which showed severely depressed LVEF. No prior echocardiogram available for review. Past Medical History Cardiac Medical History: Reports: Congestive Heart Failure, Hypertension Pulmonary Medical History: Reports: None EENT Medical History: Reports: None Neurological Medical History: Reports: None Endocrine Medical History: Reports: None Renal/ Medical History: Reports: Chronic Kidney Disease Malignancy Medical History: Reports: None GI Medical History: Reports: None Musculoskeltal Medical History: Reports: Arthritis Skin Medical History: Reports: None Psychiatric Medical History: Reports: Tobacco Dependency Traumatic Medical History: Reports: None Hematology: Reports: None Infectious Medical History: Reports: None Past Surgical History Past Surgical History: Reports: None Social History Information Source: Patient Lives with: Family Smoking Status: Unknown if Ever Smoked Cigarettes Packs Per Day: 1 Frequency of Alcohol Use: Occasional Hx Recreational Drug Use: No Drugs: None Hx Prescription Drug Abuse: No - Advance Directive Resuscitation Status: Full Code Surrogate healthcare decision maker:: Patient's daughter surrogate decision-maker Family History Family History: Reviewed & Not Pertinent, Arthritis, DM, Hyperlipidemia, Hypertension Parental Family History Reviewed: Yes Children Family History Reviewed: Yes Sibling(s) Family History Reviewed.: Yes Medication/Allergy Home Medications: Citalopram Hydrobromide [Celexa] 20 mg PO DAILY 08/07/17 Megestrol Acetate 40 mg PO DAILY 08/07/17 Meloxicam [Mobic] 7.5 mg PO BID 08/07/17 Allergies/Adverse Reactions: Penicillins Allergy (Verified 08/07/17 10:02) Review of Systems Review of Systems: GENERAL: well-nourished and in no acute distress. Alert and oriented x3 HEAD: Atraumatic, normocephalic. Patient has a cut over his left eyebrow which has been sutured. EYES: Pupils equal round and reactive to light, extraocular movements intact, sclera anicteric, conjunctiva are normal. ENT: TMs normal, nares patent, oropharynx clear without exudates. Moist mucous membranes. No oral ulcerations or bleeding gums noted NECK: supple without lymphadenopathy. Trachea is central. No cervical or axillary lymphadenopathy noted. Carotids are 2+, JVD WNL LUNGS: Respiration seems nonlabored, no significant accessory muscle action noted. Breath sounds clear to auscultation bilaterally and equal noted. No wheezes rales or rhonchi noted. No significant dullness noted on percussion. CHEST: Palpation of the chest wall shows no significant chest wall tenderness. No other significant abnormalities noted. 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 ABDOMEN: Soft, no significant tenderness appreciated, normoactive bowel sounds. No guarding, no rebound. No rigidity noted . No masses appreciated. EXTREMITIES: Pedal pulses are 1-2+, no calf tenderness noted. No clubbing or cyanosis. Negative pedal edema noted NEUROLOGICAL: Focused neurological exam showed no significant neurologic deficit. Normal speech, no focal weakness appreciated. PSYCH: Normal mood, normal affect. Judgment and insight within normal limits. SKIN: No significant ecchymosis, rash, ulcerations or signs of pruritus noted. MUSCULOSKELETAL EXAM: No significant joint swelling noted. Physical Exam Vital Signs: Temp Pulse Resp BP Pulse Ox 97.6 F 51 L 19 141/83 H 97 08/07/17 10:23 08/07/17 10:23 08/07/17 17:01 02/16/18 17:01 08/07/17 17:01 Results EKG Comments: Shows atrial flutter with controlled ventricular response Impressions: Cervical Spine CT 08/07/17 10:29 IMPRESSION: Questionable nondisplaced dorsal spinous process fracture C6 and C 7. This may be artifact of patient motion and osteopenia. No evidence of unstable fracture. Chest X-Ray 08/07/17 10:29 IMPRESSION: NO ACUTE RADIOGRAPHIC FINDING IN THE CHEST. Head CT 08/07/17 10:29 IMPRESSION: CHRONIC CHANGES OF ATROPHY AND MICROVASCULAR ISCHEMIA. NO ACUTE PROCESS. EVIDENCE OF ACUTE STROKE: NO. Assessment & Plan - Diagnosis (1) Syncope and collapse Is this a current diagnosis for this admission?: Yes (2) Atrial fibrillation and flutter Is this a current diagnosis for this admission?: Yes (3) Cardiomyopathy Qualifiers: Cardiomyopathy type: unspecified Qualified Code(s): I42.9 - Cardiomyopathy , unspecified Is this a current diagnosis for this admission?: Yes - Notes Notes: Patient presents with syncope and is noted to have atrial flutter fibrillation along with dilated cardiomyopathy. Patient has a previous history of alcohol abuse. Could be alcoholic cardiomyopathy. Patient need to be observed for any ventricular tachyarrhythmias, other cardiac dysrhythmias. Patient will benefit from cessation of alcohol intake. Patient will also benefit from optimization of therapy for underlying cardiomyopathy and possibly wear defibrillator prior to discharge. - Time Time Spent: 30 to 50 Minutes - CODE STATUS was discussed, patient remains full code. Surrogate decision-maker unchanged. Multiple medical problems were addressed. More than 50% of the time spent coordinating care, discussing management plans with involved caregivers. Management plans discussed with involved personnels. Medical decision making was of moderate to high complexity , patient's has multiple comorbidities. Medications reviewed and adjusted accordingly: Yes
[2017-08-08] MEDS: NORMAL SALINE 1000 ML 1,000 ML IV PRN ×2 (04:15→17:12)
[2017-08-08] MEDS: OXYCODONE-ACETAMINOPHEN 5-325 MG TABLET PO PRN ×3 (04:34→22:18)
[2017-08-08 05:08] LABS: ABSOLUTE EOSINOPHILS # (AUTO) 0.1 10^3/uL (0.0-0.6); ABSOLUTE LYMPHOCYTES (AUTO) 1.4 10^3/uL (0.5-4.7); ABSOLUTE MONOCYTES (AUTO) 0.4 10^3/uL (0.1-1.4); ABSOLUTE NEUT (AUTO) 2.7 10^3/uL (1.7-8.2); BASOPHILS % (AUTO) 0.6 % (0-2); HEMATOCRIT 35.5 % (37.9-51.0); HEMOGLOBIN 11.9 g/dL (13.5-17.0); LYMPHOCYTES % (AUTO) 30.2 % (13-45); MEAN CORPUSCULAR HEMOGLOBIN 32.1 pg (27.0-33.4); MEAN CORPUSCULAR HGB CONC 33.5 g/dL (32.0-36.0); MEAN CORPUSCULAR VOLUME 96 fl (80-97); MONOCYTES % (AUTO) 9.1 % (3-13); PLATELET COUNT 162 10^3/uL (150-450); RED BLOOD COUNT 3.71 10^6/uL (4.35-5.55); RED CELL DISTRIBUTION WIDTH 13.7 % (11.5-14.0); SEGMENTED NEUTROPHILS % (AUTO) 58.1 % (42-78); TOTAL CELLS COUNTED % (AUTO) 100 %; WHITE BLOOD COUNT 4.7 10^3/uL (4.0-10.5)
[2017-08-08 05:27] LABS: ANION GAP 11 (5-19); BLOOD UREA NITROGEN 17 mg/dL (7-20); CALCIUM 9.4 mg/dL (8.4-10.2); CARBON DIOXIDE 17 mmol/L (22-30); CHLORIDE 112 mmol/L (98-107); GLUCOSE 87 mg/dL (75-110); POTASSIUM 4.2 mmol/L (3.6-5.0); SODIUM 140.3 mmol/L (137-145)
[2017-08-08] MEDS: HEPARIN SOD (PORCINE) 5,000 UNIT/ML 1 ML SYRINGE SUBCUT SCH (07:03)
[2017-08-08] MEDS: MULTIVITAMIN TABLET PO SCH (10:07)
[2017-08-08] MEDS: THIAMINE HCL 100 MG TABLET PO SCH (10:07)
[2017-08-08] MEDS: ASPIRIN 81 MG TABLET, ENT COATED PO SCH (10:07)
[2017-08-08] MEDS ORDERED: SACUBITRIL/VALSARTAN 24 MG/26 MG TABLET PO ONE (11:30)
--- NOTE | 2017-08-08 12:52 | PDOC PROGRESS REPORT ---
Subjective Progress Note for:: 08/08/17 Subjective:: Patient seems to be doing better with gradual improvement. Pt is denying any chest arm or neck discomfort. Patient denying any PND, orthopnea. Patient denied any sustained palpitations, dizziness, syncope, near syncope. Patient denying any fever chills. Patient denying any other significant discomfort. Heart rhythm difficult to assess but possibly underlying atrial flutter. Review of systems: Rest review of systems negative. Medications: Medications have been reviewed. Reason For Visit: SYNCOPE Physical Exam Vital Signs: Temp Pulse Resp BP Pulse Ox 98.2 F 73 16 119/58 L 100 08/08/17 11:47 08/08/17 11:47 08/08/17 11:47 08/08/17 11:47 08/08/17 11:47 Intake & Output 08/07/17 08/08/17 08/09/17 06:59 06:59 06:59 Weight 67.2 kg Exam: GENERAL: well-nourished and in no acute distress. Alert and oriented x3 HEAD: Atraumatic, normocephalic. Patient has a sutured wound above his left brow. EYES: Pupils equal round and reactive to light, extraocular movements intact, sclera anicteric, conjunctiva are normal. ENT: TMs normal, nares patent, oropharynx clear without exudates. Moist mucous membranes. No oral ulcerations or bleeding gums noted NECK: supple without lymphadenopathy. Trachea is central. No cervical or axillary lymphadenopathy noted. Carotids are 2+, JVD WNL LUNGS: Respiration seems nonlabored, no significant accessory muscle action noted. Breath sounds clear to auscultation bilaterally and equal noted. No wheezes rales or rhonchi noted. No significant dullness noted on percussion. CHEST: Palpation of the chest wall shows no significant chest wall tenderness. No other significant abnormalities noted. 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 ABDOMEN: Soft, no significant tenderness appreciated, normoactive bowel sounds. No guarding, no rebound. No rigidity noted . No masses appreciated. EXTREMITIES: Pedal pulses are 1-2+, no calf tenderness noted. No clubbing or cyanosis.trace to 1+ pedal edema noted NEUROLOGICAL: Focused neurological exam showed no significant neurologic deficit. Normal speech, no focal weakness appreciated. PSYCH: Normal mood, normal affect. Judgment and insight within normal limits. SKIN: No significant ecchymosis, rash, ulcerations or signs of pruritus noted. MUSCULOSKELETAL EXAM: No significant joint swelling noted. Results Laboratory Results: 08/08/17 04:37 08/08/17 04:37 08/08/17 08/08/17 04:37 04:37 WBC 4.7 RBC 3.71 L Hgb 11.9 L Hct 35.5 L MCV 96 MCH 32.1 MCHC 33.5 RDW 13.7 Plt Count 162 Seg Neutrophils % 58.1 Lymphocytes % 30.2 Monocytes % 9.1 Eosinophils % 2.0 Basophils % 0.6 Absolute Neutrophils 2.7 Absolute Lymphocytes 1.4 Absolute Monocytes 0.4 Absolute Eosinophils 0.1 Absolute Basophils 0.0 Sodium 140.3 Potassium 4.2 Chloride 112 H Carbon Dioxide 17 L Anion Gap 11 BUN 17 Creatinine 1.12 Est GFR ( Amer) > 60 Est GFR (Non-Af Amer) > 60 Glucose 87 Calcium 9.4 Magnesium 1.9 08/07/17 19:43 Troponin I 0.036 EKG Comments: Telemetry strips reviewed. Heart rhythm difficult to assess. Will order an EKG. EKG ordered for this morning was for some reason not done. Impressions: Cervical Spine CT 08/07/17 10:29 IMPRESSION: Questionable nondisplaced dorsal spinous process fracture C6 and C 7. This may be artifact of patient motion and osteopenia. No evidence of unstable fracture. Chest X-Ray 08/07/17 10:29 IMPRESSION: NO ACUTE RADIOGRAPHIC FINDING IN THE CHEST. Head CT 08/07/17 10:29 IMPRESSION: CHRONIC CHANGES OF ATROPHY AND MICROVASCULAR ISCHEMIA. NO ACUTE PROCESS. EVIDENCE OF ACUTE STROKE: NO. Assessment & Plan - Diagnosis (1) Syncope and collapse Is this a current diagnosis for this admission?: Yes (2) Atrial fibrillation and flutter Is this a current diagnosis for this admission?: Yes (3) Cardiomyopathy Qualifiers: Cardiomyopathy type: unspecified Qualified Code(s): I42.9 - Cardiomyopathy , unspecified Is this a current diagnosis for this admission?: Yes - Notes Notes: Syncope and collapse: Exact etiology not clear but in view of depressed LVEF, cannot rule out ventricular tachyarrhythmia. Patient has prior history of alcohol abuse but alcohol level obtained yesterday which was quite a bit later than admission time showed normal alcohol level. Have placed patient on entresto to help with cardiomyopathy. Will add beta-tony. Atrial flutter fibrillation: Patient has high chads score. Will add Eliquis. Cardiomyopathy: Started entresto. Will add carvedilol. Patient will benefit from abstinence from alcohol. 2D echo results discussed with the patient. - Time Time with patient: Greater than 35 minutes - CODE STATUS was discussed, patient remains full code. Surrogate decision-maker unchanged. Multiple medical problems were addressed. More than 50% of the time spent coordinating care, discussing management plans with involved caregivers. Management plans discussed with involved personnels. Medical decision making was of moderate to high complexity, patient's has multiple comorbidities. Medications reviewed and adjusted accordingly: Yes
--- NOTE | 2017-08-08 14:39 | PDOC PROGRESS REPORT ---
Subjective Progress Note for:: 08/08/17 Subjective:: SUMMARY: per H&P -"History of Present Illness: KATT HERNÁNDEZ JR is a 76 year old maleWas brought into emergency room by his grandson after passing out while in the bathroom. Patient states that he has been having episodes of weakness and dizziness. He fell this past week. Today he went to the bathroom and when he turned he hit the left side of his face with a bath. Patient relates that he does not know what happened. Patient denies chest pain, shortness of breath, headache, numbness. He denies history of a stroke or heart attack. He required placement of 4 sutures to left upper eyelid. EKG was obtained which was concerning and had to be discussed with Dr. Hall and demonstrated an atrial rate around 250" with a 3:1 block.Due to presentation our service was consulted and prompted to admit." I inherited his care Thursday and he reports feeling some better, some pain over his eye and a headache but no recurrence of syncope or presyncope since his arrival. he denies chest pain, palpitations, dizziness, numbness or tingling, abd pain, n/v/d. ROS: all systems reviewed, see above, remaining systems negative. Reason For Visit: SYNCOPE Physical Exam Vital Signs: Temp Pulse Resp BP Pulse Ox 98.2 F 73 16 119/58 L 100 08/08/17 11:47 08/08/17 11:47 08/08/17 11:47 08/08/17 11:47 08/08/17 11:47 Intake & Output 08/07/17 08/08/17 08/09/17 06:59 06:59 06:59 Weight 67.2 kg General appearance: PRESENT: no acute distress, well-developed, well-nourished Head exam: PRESENT: other - left eye contusion and stitches in place with palpable edema but no crepitus, heat or erythema noted Mouth exam: PRESENT: moist, tongue midline Teeth exam: PRESENT: poor dentation Neck exam: PRESENT: full ROM. ABSENT: carotid bruit, JVD, lymphadenopathy, thyromegaly, tracheal deviation Respiratory exam: PRESENT: clear to auscultation rosita, unlabored. ABSENT: accessory muscle use Cardiovascular exam: PRESENT: irregular rhythm - aflutter on monitor with variable vent response, rate controlled. ABSENT: systolic murmur, tachycardia Pulses: PRESENT: normal radial pulses GI/Abdominal exam: PRESENT: normal bowel sounds, soft. ABSENT: tenderness Musculoskeletal exam: PRESENT: full ROM. ABSENT: tenderness Neurological exam: PRESENT: alert, awake, oriented to person, oriented to place , oriented to time, oriented to situation, reflexes normal. ABSENT: motor sensory deficit, aphasic Psychiatric exam: PRESENT: appropriate affect, normal mood Skin exam: PRESENT: warm. ABSENT: dry Results Laboratory Results: 08/08/17 04:37 08/08/17 04:37 08/08/17 08/08/17 04:37 04:37 WBC 4.7 RBC 3.71 L Hgb 11.9 L Hct 35.5 L MCV 96 MCH 32.1 MCHC 33.5 RDW 13.7 Plt Count 162 Seg Neutrophils % 58.1 Lymphocytes % 30.2 Monocytes % 9.1 Eosinophils % 2.0 Basophils % 0.6 Absolute Neutrophils 2.7 Absolute Lymphocytes 1.4 Absolute Monocytes 0.4 Absolute Eosinophils 0.1 Absolute Basophils 0.0 Sodium 140.3 Potassium 4.2 Chloride 112 H Carbon Dioxide 17 L Anion Gap 11 BUN 17 Creatinine 1.12 Est GFR ( Amer) > 60 Est GFR (Non-Af Amer) > 60 Glucose 87 Calcium 9.4 Magnesium 1.9 08/07/17 19:43 Troponin I 0.036 EKG Comments: ekg shows aflutter Impressions: Cervical Spine CT 08/07/17 10:29 IMPRESSION: Questionable nondisplaced dorsal spinous process fracture C6 and C 7. This may be artifact of patient motion and osteopenia. No evidence of unstable fracture. Chest X-Ray 08/07/17 10:29 IMPRESSION: NO ACUTE RADIOGRAPHIC FINDING IN THE CHEST. Head CT 08/07/17 10:29 IMPRESSION: CHRONIC CHANGES OF ATROPHY AND MICROVASCULAR ISCHEMIA. NO ACUTE PROCESS. EVIDENCE OF ACUTE STROKE: NO. Status: Imported from PACS Assessment & Plan - Diagnosis (1) Atrial fibrillation and flutter Is this a current diagnosis for this admission?: Yes Plan: new onset; rate controlled but may need low dose beta tony due to severity of his cardiomyopathy. cardio started eliqurashawn and I agree. (2) Cardiomyopathy Qualifiers: Cardiomyopathy type: unspecified Qualified Code(s): I42.9 - Cardiomyopathy , unspecified Is this a current diagnosis for this admission?: Yes Plan: severe; probably needs further ischemia evaluation, discussed with cardio and will likely get stress test at some point. will need ACEi and possibly aldactone if his BP can tolerate. (3) Laceration of face Qualifiers: Encounter type: initial encounter Qualified Code(s): S01.81XA - Laceration without foreign body of other part of head, initial encounter Is this a current diagnosis for this admission?: Yes Plan: topical care (4) Syncope and collapse Is this a current diagnosis for this admission?: Yes Plan: most likely due to cardiomyopathy and arrhythmia. continue to monitor and advance activity under supervision. (5) Tobacco abuse Is this a current diagnosis for this admission?: Yes - Time Time Spent with patient: 35 or more minutes Medications reviewed and adjusted accordingly: Yes
[2017-08-08] MEDS: APIXABAN 5 MG TABLET PO SCH (17:12)
[2017-08-08] MEDS ORDERED: APIXABAN 2.5 MG TABLET PO SCH (18:00)
--- NOTE | 2017-08-08 22:07 | EKG REPORT ---
SEVERITY:- ABNORMAL ECG - A-FLUTTER W/ PREDOM 3:1 AV BLOCK, A-RATE 272 LEFT ANTERIOR FASCICULAR BLOCK LOW VOLTAGE IN FRONTAL LEADS NONSPECIFIC T ABNORMALITIES, LATERAL LEADS : Confirmed by: Rafael Hall 08-Aug-2017 22:06:36
[2017-08-08] MEDS: SACUBITRIL/VALSARTAN 24 MG/26 MG TABLET PO SCH (22:19)
[2017-08-09 06:36] LABS: ANION GAP 9 (5-19); BLOOD UREA NITROGEN 18 mg/dL (7-20); CALCIUM 8.6 mg/dL (8.4-10.2); CARBON DIOXIDE 19 mmol/L (22-30); CHLORIDE 115 mmol/L (98-107); GLUCOSE 107 mg/dL (75-110); POTASSIUM 4.2 mmol/L (3.6-5.0); SODIUM 142.6 mmol/L (137-145)
--- NOTE | 2017-08-09 09:33 | EKG REPORT ---
SEVERITY:- ABNORMAL ECG - A-FLUTTER W/ PREDOM 3:1 AV BLOCK, VS SINUS RHYTHM, REC REPEAT EKG LEFT ANTERIOR FASCICULAR BLOCK LOW VOLTAGE IN FRONTAL LEADS NONSPECIFIC T ABNORMALITIES, LATERAL LEADS BORDERLINE PROLONGED QT INTERVAL : Confirmed by: Rafael Hall 09-Aug-2017 09:32:45
--- NOTE | 2017-08-09 09:33 | EKG REPORT ---
SEVERITY:- ABNORMAL ECG - ATRIAL FLUTTER LEFT ANTERIOR FASCICULAR BLOCK ABNRM R PROG, CONSIDER ASMI OR LEAD PLACEMENT NONSPECIFIC T ABNORMALITIES, LATERAL LEADS : Confirmed by: Rafael Hall 09-Aug-2017 09:33:21
[2017-08-09] MEDS: MULTIVITAMIN TABLET PO SCH (09:49)
[2017-08-09] MEDS: APIXABAN 5 MG TABLET PO SCH ×2 (09:49→17:20)
[2017-08-09] MEDS: SACUBITRIL/VALSARTAN 24 MG/26 MG TABLET PO SCH ×2 (09:49→22:27)
[2017-08-09] MEDS: THIAMINE HCL 100 MG TABLET PO SCH (09:49)
[2017-08-09] MEDS: ASPIRIN 81 MG TABLET, ENT COATED PO SCH (09:49)
[2017-08-09] MEDS: CARVEDILOL 3.125 MG TABLET PO SCH ×2 (10:34→22:27)
[2017-08-09] MEDS ORDERED: PREDNISONE 20 MG TABLET PO SCH (12:00)
[2017-08-09] MEDS: OXYCODONE-ACETAMINOPHEN 5-325 MG TABLET PO PRN (14:03)
--- NOTE | 2017-08-09 15:45 | PDOC PROGRESS REPORT ---
Subjective Progress Note for:: 08/09/17 Subjective:: SUMMARY: per H&P -"History of Present Illness: KATT HERNÁNDEZ JR is a 76 year old maleWas brought into emergency room by his grandson after passing out while in the bathroom. Patient states that he has been having episodes of weakness and dizziness. He fell this past week. Today he went to the bathroom and when he turned he hit the left side of his face with a bath. Patient relates that he does not know what happened. Patient denies chest pain, shortness of breath, headache, numbness. He denies history of a stroke or heart attack. He required placement of 4 sutures to left upper eyelid. EKG was obtained which was concerning and had to be discussed with Dr. Hall and demonstrated an atrial rate around 250" with a 3:1 block.Due to presentation our service was consulted and prompted to admit." I inherited his care Thursday and he reported feeling some better with tolerable pain over his injured eye and a mild headache but no recurrence of syncope or presyncope since his arrival. he denies chest pain, palpitations, dizziness, numbness or tingling, abd pain, n/v/d. he continues to have brief, asymptomatic runs of NSVT on telemetry. this morning he states he just doesn't feel well, continues to c/o generalized pain and weakness particularly of the thighs and shoulder girdle. states this has been going on for over a month, sometimes he can barely lift himself from a seated position or climb a flight of stairs due to progressive burning and weakness in his legs/thighs. ROS: all systems reviewed, see above, remaining systems negative. Reason For Visit: SYNCOPE Physical Exam Vital Signs: Temp Pulse Resp BP Pulse Ox 98.1 F 92 18 124/72 92 08/09/17 10:36 08/09/17 10:36 08/09/17 10:36 08/09/17 10:36 08/09/17 10:36 Intake & Output 08/08/17 08/09/17 08/10/17 06:59 06:59 06:59 Intake Total 2935 Output Total 800 Balance 2135 Weight 67.2 kg 67.3 kg General appearance: PRESENT: no acute distress, well-developed, well-nourished Head exam: PRESENT: other - left eye contusion and stitches in place with palpable edema but no crepitus, heat or erythema noted and able to open the eye a bit further today, c/o blurred vision in that eye only but no visual field cuts Mouth exam: PRESENT: moist, tongue midline Teeth exam: PRESENT: poor dentition Neck exam: PRESENT: full ROM. ABSENT: carotid bruit, JVD, lymphadenopathy, thyromegaly, tracheal deviation Respiratory exam: PRESENT: clear to auscultation rosita, unlabored. ABSENT: accessory muscle use Cardiovascular exam: PRESENT: regular rhythm - aflutter on monitor 3:1 block at present, rate controlled at <100. ABSENT: systolic murmur, tachycardia Pulses: PRESENT: normal radial pulses GI/Abdominal exam: PRESENT: normal bowel sounds, soft. ABSENT: tenderness Musculoskeletal exam: PRESENT: full ROM. ABSENT: tenderness to palpation of the major muscle groups Neurological exam: PRESENT: alert, awake, oriented to person, oriented to place , oriented to time, oriented to situation, reflexes normal. ABSENT: motor sensory deficit, aphasic Psychiatric exam: PRESENT: appropriate affect, normal mood Skin exam: PRESENT: warm. ABSENT: dry Results Laboratory Results: 08/08/17 04:37 08/09/17 04:55 08/09/17 08/09/17 04:55 12:03 Sodium 142.6 Potassium 4.2 Chloride 115 H Carbon Dioxide 19 L Anion Gap 9 BUN 18 Creatinine 1.19 Est GFR ( Amer) > 60 Est GFR (Non-Af Amer) > 60 Glucose 107 Calcium 8.6 Magnesium 1.8 C-Reactive Protein 5.8 08/07/17 19:43 Troponin I 0.036 Assessment & Plan - Diagnosis (1) Atrial fibrillation and flutter Is this a current diagnosis for this admission?: Yes Plan: new onset; rate controlled, cardio added low dose beta tony and entresto due to severity of his cardiomyopathy as well as eliquis (2) Cardiomyopathy Qualifiers: Cardiomyopathy type: unspecified Qualified Code(s): I42.9 - Cardiomyopathy , unspecified Is this a current diagnosis for this admission?: Yes Plan: severe; probably needs further ischemia evaluation, discussed with cardio and will likely get stress test Thursday. may need aldactone if his BP and renal function can tolerate. ck lipid levels though treatment with statin will be problematic given his muscle aches/pains and mildly elevated CK on admission. (3) Laceration of face Qualifiers: Encounter type: initial encounter Qualified Code(s): S01.81XA - Laceration without foreign body of other part of head, initial encounter Is this a current diagnosis for this admission?: Yes (4) Syncope and collapse Is this a current diagnosis for this admission?: Yes Plan: most likely due to cardiomyopathy and arrhythmia. continue to monitor and advance activity under supervision. (5) Tobacco abuse Is this a current diagnosis for this admission?: Yes (6) Proximal muscle weakness Is this a current diagnosis for this admission?: Yes Plan: unclear etiology, possibly related to the above but history is suspicious for PMR; will give dose of prednisone, monitor for response and ck inflammatory markers and CK levels. - Time Time Spent with patient: 25-34 minutes - Inpatient Certification Based on my medical assessment, after consideration of the patient's comorbidities, presenting symptoms, or acuity I expect that the services needed warrant INPATIENT care.: Yes I certify that my determination is in accordance with my understanding of Medicare's requirements for reasonable and necessary INPATIENT services [42 CFR 412.3e].: Yes Medical Necessity: Failure to Improve With Outpatient Therapy, Need Close Monitoring Due to Risk of Patient Decompensation, Need For Continuous Telemetry Monitoring, Risk of Complication if Not Cared For in Hospital
[2017-08-09] MEDS: NORMAL SALINE 1000 ML 1,000 ML IV PRN (17:20)
--- NOTE | 2017-08-09 17:35 | PDOC PROGRESS REPORT ---
Subjective Progress Note for:: 08/09/17 Subjective:: Patient seems to be doing better with gradual improvement. Pt is denying any chest arm or neck discomfort. Patient denying any PND, orthopnea. Patient denied any sustained palpitations, dizziness, syncope, near syncope. Patient denying any fever chills. Patient denying any other significant discomfort. Patient however noted marked general weakness and claims to be feeling very weak. Telemetry strip shows atrial flutter fibrillation. Also patient to have nonsustained wide-complex tachycardia. Patient being placed on beta-tony. Review of systems: Rest review of systems negative. Medications: Medications have been reviewed. Reason For Visit: SYNCOPE Physical Exam Vital Signs: Temp Pulse Resp BP Pulse Ox 98.7 F 89 16 128/76 H 92 08/09/17 15:33 08/09/17 15:33 08/09/17 15:33 08/09/17 15:33 08/09/17 15:33 Intake & Output 08/08/17 08/09/17 08/10/17 06:59 06:59 06:59 Intake Total 2935 2308 Output Total 800 550 Balance 2135 1758 Weight 67.2 kg 67.3 kg Exam: GENERAL: well-nourished and in no acute distress. Alert and oriented x3 HEAD: Atraumatic, normocephalic. Patient has a sutured wound above his left eyebrow. EYES: Pupils equal round and reactive to light, extraocular movements intact, sclera anicteric, conjunctiva are normal. ENT: TMs normal, nares patent, oropharynx clear without exudates. Moist mucous membranes. No oral ulcerations or bleeding gums noted NECK: supple without lymphadenopathy. Trachea is central. No cervical or axillary lymphadenopathy noted. Carotids are 2+, JVD WNL LUNGS: Respiration seems nonlabored, no significant accessory muscle action noted. Breath sounds clear to auscultation bilaterally and equal noted. No wheezes rales or rhonchi noted. No significant dullness noted on percussion. CHEST: Palpation of the chest wall shows no significant chest wall tenderness. No other significant abnormalities noted. 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 ABDOMEN: Soft, no significant tenderness appreciated, normoactive bowel sounds. No guarding, no rebound. No rigidity noted . No masses appreciated. EXTREMITIES: Pedal pulses are 1-2+, no calf tenderness noted. No clubbing or cyanosis.trace to 1+ pedal edema noted NEUROLOGICAL: Focused neurological exam showed no significant neurologic deficit. Normal speech, generalized weakness noted. Patient now complaining of lower extremity weakness. This is being evaluated by hospitalist.. PSYCH: Normal mood, normal affect. Judgment and insight within normal limits. SKIN: No significant ecchymosis, rash, ulcerations or signs of pruritus noted. MUSCULOSKELETAL EXAM: No significant joint swelling noted. Results Laboratory Results: 08/08/17 04:37 08/09/17 04:55 08/09/17 08/09/17 04:55 12:03 Sodium 142.6 Potassium 4.2 Chloride 115 H Carbon Dioxide 19 L Anion Gap 9 BUN 18 Creatinine 1.19 Est GFR ( Amer) > 60 Est GFR (Non-Af Amer) > 60 Glucose 107 Calcium 8.6 Magnesium 1.8 C-Reactive Protein 5.8 08/07/17 19:43 Troponin I 0.036 Impressions: Cervical Spine CT 08/07/17 10:29 IMPRESSION: Questionable nondisplaced dorsal spinous process fracture C6 and C 7. This may be artifact of patient motion and osteopenia. No evidence of unstable fracture. Chest X-Ray 08/07/17 10:29 IMPRESSION: NO ACUTE RADIOGRAPHIC FINDING IN THE CHEST. Head CT 08/07/17 10:29 IMPRESSION: CHRONIC CHANGES OF ATROPHY AND MICROVASCULAR ISCHEMIA. NO ACUTE PROCESS. EVIDENCE OF ACUTE STROKE: NO. Assessment & Plan - Diagnosis (1) Syncope and collapse Is this a current diagnosis for this admission?: Yes (2) Atrial fibrillation and flutter Is this a current diagnosis for this admission?: Yes (3) Cardiomyopathy Qualifiers: Cardiomyopathy type: unspecified Qualified Code(s): I42.9 - Cardiomyopathy , unspecified Is this a current diagnosis for this admission?: Yes (4) NSVT (nonsustained ventricular tachycardia) Is this a current diagnosis for this admission?: Yes (5) Debility Is this a current diagnosis for this admission?: Yes (6) Muscle weakness Is this a current diagnosis for this admission?: Yes - Notes Notes: Syncope and collapse: Exact etiology not clear but in view of depressed LVEF, cannot rule out ventricular tachyarrhythmia. Patient has prior history of alcohol abuse but alcohol level obtained yesterday which was quite a bit later than admission time showed normal alcohol level. Have placed patient on entresto to help with cardiomyopathy. Patient today placed on carvedilol. Atrial flutter fibrillation: Patient has high chads score. Will add Eliquis. Cardiomyopathy: Started entresto yesterday. Today added carvedilol. Nonsustained ventricular tachycardia: Patient will definitely benefit from being discharged on LifeVest. Patient will also need an ischemia evaluation prior to discharge. General debility and muscle weakness. May consider total CK and OT PT evaluation. Patient will benefit from abstinence from alcohol. 2D echo results discussed with the patient. - Time Time with patient: Greater than 35 minutes - CODE STATUS was discussed, patient remains full code. Surrogate decision-maker unchanged. Multiple medical problems were addressed. More than 50% of the time spent coordinating care, discussing management plans with involved caregivers. Management plans discussed with involved personnels. Medical decision making was of moderate to high complexity, patient's has multiple comorbidities. Medications reviewed and adjusted accordingly: Yes
[2017-08-10 05:41] LABS: ANION GAP 11 (5-19); BLOOD UREA NITROGEN 14 mg/dL (7-20); CALCIUM 8.2 mg/dL (8.4-10.2); CARBON DIOXIDE 17 mmol/L (22-30); CHLORIDE 110 mmol/L (98-107); CHOLESTEROL 150.76 mg/dL (0-200); CREATINE KINASE 124 U/L (55-170); GLUCOSE 130 mg/dL (75-110); POTASSIUM 4.2 mmol/L (3.6-5.0); SODIUM 138.3 mmol/L (137-145); TRIGLYCERIDES 91 mg/dL (<150)
[2017-08-10 05:52] LABS: DIRECT LDL 107 mg/dL (<100)
[2017-08-10] MEDS: NORMAL SALINE 1000 ML 1,000 ML IV PRN (07:15)
[2017-08-10] MEDS: APIXABAN 5 MG TABLET PO SCH ×2 (10:12→21:01)
[2017-08-10] MEDS: SACUBITRIL/VALSARTAN 24 MG/26 MG TABLET PO SCH ×2 (10:13→21:02)
[2017-08-10] MEDS: THIAMINE HCL 100 MG TABLET PO SCH (10:13)
[2017-08-10] MEDS: ASPIRIN 81 MG TABLET, ENT COATED PO SCH (10:13)
[2017-08-10] MEDS: MULTIVITAMIN TABLET PO SCH (10:13)
--- NOTE | 2017-08-10 12:15 | PDOC PROGRESS REPORT ---
Subjective Progress Note for:: 08/10/17 Subjective:: I was called yesterday about 15 beat run of nonsustained wide-complex tachycardia. Patient was reported to be asymptomatic. However no strips were placed in the chart. Patient is is being patient denying any fever chills. Patient denying any other significant discomfort. Patient however noted marked general weakness and claims to be feeling very weak. Telemetry strip shows atrial flutter fibrillation. Also patient to have nonsustained wide-complex tachycardia, however I could not find such strip in the chart, nurses are trying to find that and placed on the chart. Patient being placed on beta-tony yesterday, the dose is being increased. Review of systems: Rest review of systems negative. Medications: Medications have been reviewed. Reason For Visit: NEW ONSET AFLUTTER Physical Exam Vital Signs: Temp Pulse Resp BP Pulse Ox 99.1 F 92 18 107/61 96 08/10/17 08:21 08/10/17 08:21 08/10/17 08:21 08/10/17 08:21 08/10/17 08:21 Intake & Output 08/09/17 08/10/17 08/11/17 06:59 06:59 06:59 Intake Total 3142 Output Total 525 Balance 2617 Weight 64.4 kg Exam: GENERAL: well-nourished and in no acute distress. Alert and oriented x3 HEAD: Atraumatic, normocephalic. EYES: Pupils equal round and reactive to light, extraocular movements intact, sclera anicteric, conjunctiva are normal. ENT: TMs normal, nares patent, oropharynx clear without exudates. Moist mucous membranes. No oral ulcerations or bleeding gums noted NECK: supple without lymphadenopathy. Trachea is central. No cervical or axillary lymphadenopathy noted. Carotids are 2+, JVD WNL LUNGS: Respiration seems nonlabored, no significant accessory muscle action noted. Breath sounds clear to auscultation bilaterally and equal noted. No wheezes rales or rhonchi noted. No significant dullness noted on percussion. CHEST: Palpation of the chest wall shows no significant chest wall tenderness. No other significant abnormalities noted. 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 ABDOMEN: Soft, no significant tenderness appreciated, normoactive bowel sounds. No guarding, no rebound. No rigidity noted . No masses appreciated. EXTREMITIES: Pedal pulses are 1-2+, no calf tenderness noted. No clubbing or cyanosis.trace to 1+ pedal edema noted NEUROLOGICAL: Focused neurological exam showed no significant neurologic deficit. Normal speech, generalized weakness and bilateral lower extremity weakness noted. A full neurological exam not performed. PSYCH: Normal mood, normal affect. Judgment and insight within normal limits. SKIN: No significant ecchymosis, rash, ulcerations or signs of pruritus noted. MUSCULOSKELETAL EXAM: No significant joint swelling noted. Results Laboratory Results: 08/10/17 04:34 08/10/17 04:34 Sodium 138.3 Potassium 4.2 Chloride 110 H Carbon Dioxide 17 L Anion Gap 11 BUN 14 Creatinine 1.08 Est GFR ( Amer) > 60 Est GFR (Non-Af Amer) > 60 Glucose 130 H Calcium 8.2 L Magnesium 1.7 Triglycerides 91 Cholesterol 150.76 LDL Cholesterol Direct 107 H VLDL Cholesterol 18.0 HDL Cholesterol 36 L 08/10/17 04:34 Creatine Kinase 124 EKG Comments: Telemetry strips shows patient in atrial flutter with controlled ventricular response. Impressions: Cervical Spine CT 08/07/17 10:29 IMPRESSION: Questionable nondisplaced dorsal spinous process fracture C6 and C 7. This may be artifact of patient motion and osteopenia. No evidence of unstable fracture. Chest X-Ray 08/07/17 10:29 IMPRESSION: NO ACUTE RADIOGRAPHIC FINDING IN THE CHEST. Head CT 08/07/17 10:29 IMPRESSION: CHRONIC CHANGES OF ATROPHY AND MICROVASCULAR ISCHEMIA. NO ACUTE PROCESS. EVIDENCE OF ACUTE STROKE: NO. Assessment & Plan - Diagnosis (1) Syncope and collapse Is this a current diagnosis for this admission?: Yes (2) Atrial fibrillation and flutter Is this a current diagnosis for this admission?: Yes (3) Cardiomyopathy Qualifiers: Cardiomyopathy type: unspecified Qualified Code(s): I42.9 - Cardiomyopathy , unspecified Is this a current diagnosis for this admission?: Yes (4) NSVT (nonsustained ventricular tachycardia) Is this a current diagnosis for this admission?: Yes (5) Debility Is this a current diagnosis for this admission?: Yes (6) Muscle weakness Is this a current diagnosis for this admission?: Yes (7) Dyslipidemia Is this a current diagnosis for this admission?: Yes - Notes Notes: Syncope and collapse: Exact etiology not clear but in view of depressed LVEF, cannot rule out ventricular tachyarrhythmia. Patient has prior history of alcohol abuse but alcohol level obtained yesterday which was quite a bit later than admission time showed normal alcohol level. Have placed patient on entresto to help with cardiomyopathy. Patient today dose of carvedilol was increased to 6.25 p.o. every 12. Atrial flutter fibrillation: Patient has high chads score. Recommend Eliquis therapy. Cardiomyopathy: Continue entresto and carvedilol. Nonsustained ventricular tachycardia: Patient will definitely benefit from being discharged on LifeVest. Patient will also need an ischemia evaluation prior to discharge. Will schedule a nuclear stress test for tomorrow. General debility and muscle weakness. Total CK was WNL. Dyslipidemia: LDL noted to be slightly high. Have added Lipitor 10 mg p.o. nightly. Patient will benefit from abstinence from alcohol. Patient however claims that he has not had any alcohol for 1 and half years. - Time Time with patient: Greater than 35 minutes - CODE STATUS was discussed, patient remains full code. Surrogate decision-maker unchanged. Multiple medical problems were addressed. More than 50% of the time spent coordinating care, discussing management plans with involved caregivers. Management plans discussed with involved personnels. Medical decision making was of moderate to high complexity, patient's has multiple comorbidities. Medications reviewed and adjusted accordingly: Yes
[2017-08-10] MEDS: CARVEDILOL 3.125 MG TABLET PO SCH (12:16)
[2017-08-10] MEDS ORDERED: ONDANSETRON HCL INJ/PF 4 MG/2 ML SDV IV PRN (13:00)
--- NOTE | 2017-08-10 19:15 | PDOC PROGRESS REPORT ---
Subjective Progress Note for:: 08/10/17 Subjective:: This is a follow-up visit for A. fib and cardiomyopathy. Patient states that it stays gone okay. He has no current complaints. Reason For Visit: NEW ONSET AFLUTTER Physical Exam Vital Signs: Temp Pulse Resp BP Pulse Ox 98.6 F 51 L 18 129/63 H 96 08/10/17 16:00 08/10/17 16:00 08/10/17 16:00 08/10/17 16:00 08/10/17 16:00 Intake & Output 08/09/17 08/10/17 08/11/17 06:59 06:59 06:59 Intake Total 3142 850 Output Total 525 Balance 2617 850 Weight 64.4 kg GENERAL: This is a well-developed elderly-appearing -[place] male resting in bed currently in no acute distress. HEENT sutures above the left eye HEART: Regular rate and rhythm. Murmur present on exam. No rubs or gallops. LUNGS: Clear to auscultation bilaterally with equal rise and fall of the chest. ABDOMEN: Soft, nontender, nondistended with normoactive bowel sounds EXTREMETIES: No clubbing, cyanosis or edema. 2+ peripheral pulses bilaterally. NEURO: Awake, alert and oriented 3. Cranial nerves II through XII are grossly intact. Results Laboratory Results: 08/10/17 04:34 08/10/17 04:34 Sodium 138.3 Potassium 4.2 Chloride 110 H Carbon Dioxide 17 L Anion Gap 11 BUN 14 Creatinine 1.08 Est GFR ( Amer) > 60 Est GFR (Non-Af Amer) > 60 Glucose 130 H Calcium 8.2 L Magnesium 1.7 Triglycerides 91 Cholesterol 150.76 LDL Cholesterol Direct 107 H VLDL Cholesterol 18.0 HDL Cholesterol 36 L 08/10/17 04:34 Creatine Kinase 124 Impressions: Cervical Spine CT 08/07/17 10:29 IMPRESSION: Questionable nondisplaced dorsal spinous process fracture C6 and C 7. This may be artifact of patient motion and osteopenia. No evidence of unstable fracture. Chest X-Ray 08/07/17 10:29 IMPRESSION: NO ACUTE RADIOGRAPHIC FINDING IN THE CHEST. Head CT 08/07/17 10:29 IMPRESSION: CHRONIC CHANGES OF ATROPHY AND MICROVASCULAR ISCHEMIA. NO ACUTE PROCESS. EVIDENCE OF ACUTE STROKE: NO. Assessment & Plan - Diagnosis (1) Atrial fibrillation and flutter Is this a current diagnosis for this admission?: Yes Plan: The patient has been started on Eliquis and is rate controlled with Coreg these measures should be continued (2) Cardiomyopathy Qualifiers: Cardiomyopathy type: unspecified Qualified Code(s): I42.9 - Cardiomyopathy , unspecified Is this a current diagnosis for this admission?: Yes Plan: The patient is currently on contrast still, Coreg. Stress test is pending for tomorrow. LifeVest will be ordered by cardiology. (3) Dyslipidemia Is this a current diagnosis for this admission?: Yes Plan: Continue low-dose statin. (4) Laceration of face Qualifiers: Encounter type: initial encounter Qualified Code(s): S01.81XA - Laceration without foreign body of other part of head, initial encounter Is this a current diagnosis for this admission?: Yes Plan: Follow-up for suture removal with PCP. (5) NSVT (nonsustained ventricular tachycardia) Is this a current diagnosis for this admission?: Yes Plan: No further episodes. LifeVest is being taken care of by cardiology. (6) Proximal muscle weakness Is this a current diagnosis for this admission?: Yes Plan: Patient was placed on prednisone empirically with workup for PMR (7) Syncope and collapse Is this a current diagnosis for this admission?: Yes Plan: No further episodes. - Time Time Spent with patient: 15-24 minutes
[2017-08-10] MEDS: ATORVASTATIN CALCIUM 10 MG TABLET PO SCH (21:01)
[2017-08-10] MEDS: CARVEDILOL 6.25 MG TABLET PO SCH (21:02)
[2017-08-11] MEDS: SACUBITRIL/VALSARTAN 24 MG/26 MG TABLET PO SCH ×2 (11:06→22:11)
[2017-08-11] MEDS: CARVEDILOL 6.25 MG TABLET PO SCH ×2 (11:07→22:11)
[2017-08-11] MEDS: MULTIVITAMIN TABLET PO SCH (11:08)
[2017-08-11] MEDS: ASPIRIN 81 MG TABLET, ENT COATED PO SCH (11:08)
[2017-08-11] MEDS: APIXABAN 5 MG TABLET PO SCH ×2 (11:08→22:11)
[2017-08-11] MEDS: THIAMINE HCL 100 MG TABLET PO SCH (11:08)
--- NOTE | 2017-08-11 11:31 | PDOC PROGRESS REPORT ---
Subjective Progress Note for:: 08/11/17 Subjective:: Doing OK. Complaint today is pain related injury above eye. However is not asking for pain medications. Denies chest pain, palpitations, SOB, abdominal pain, NV. Had many questions about Atrial fibrillation. No other complaints. Reason For Visit: NEW ONSET AFLUTTER Physical Exam Vital Signs: Temp Pulse Resp BP Pulse Ox 98.5 F 88 18 125/74 96 08/11/17 04:23 08/11/17 04:23 08/11/17 04:23 08/11/17 04:23 08/11/17 04:23 Intake & Output 08/10/17 08/11/17 08/12/17 06:59 06:59 06:59 Intake Total 3142 2230 Output Total 525 920 Balance 2617 1310 Weight 64.4 kg 66.7 kg General appearance: PRESENT: no acute distress, well-developed, well-nourished, other - Resting in bed Head exam: PRESENT: atraumatic, normocephalic Mouth exam: PRESENT: moist Respiratory exam: PRESENT: symmetrical, unlabored Cardiovascular exam: PRESENT: +S1, +S2. ABSENT: systolic murmur, tachycardia GI/Abdominal exam: PRESENT: soft. ABSENT: tenderness Neurological exam: PRESENT: alert, awake, CN II-XII grossly intact Skin exam: PRESENT: other - Sutures noted about left eye, C/D/I Results Laboratory Results: 08/10/17 04:34 08/10/17 04:34 Creatine Kinase 124 Impressions: Cervical Spine CT 08/07/17 10:29 IMPRESSION: Questionable nondisplaced dorsal spinous process fracture C6 and C 7. This may be artifact of patient motion and osteopenia. No evidence of unstable fracture. Chest X-Ray 08/07/17 10:29 IMPRESSION: NO ACUTE RADIOGRAPHIC FINDING IN THE CHEST. Head CT 08/07/17 10:29 IMPRESSION: CHRONIC CHANGES OF ATROPHY AND MICROVASCULAR ISCHEMIA. NO ACUTE PROCESS. EVIDENCE OF ACUTE STROKE: NO. Assessment & Plan - Diagnosis (1) Atrial fibrillation and flutter Is this a current diagnosis for this admission?: Yes Plan: Presented with syncopal event at home. Presented with atrial rate of 250 with a 3:1 block. Found to have depressed LVEF on admission TTE. - Seen by cardiology - Currently on Coreg 6.25mg BID with good rate control - Given elevated [id number] score, started by previous provider on Eliquis 5mg BID (2) Cardiomyopathy Qualifiers: Cardiomyopathy type: unspecified Qualified Code(s): I42.9 - Cardiomyopathy , unspecified Is this a current diagnosis for this admission?: Yes Plan: Etiology unclear, may be related to ischemia vs. tachyarrhythmia vs. alcohol related - TTE on admission: EF 25-30%, Grade 2/4 diastolic dysfunction, LVH, severe global hypokinesis - Stress test planned to assess for ischemic component. - Will be discharged on home with Life Vest - Currently on Beta-tony and KARLI-i to optimize HF medical management - Cardiology following, appreciate recs (3) Dyslipidemia Is this a current diagnosis for this admission?: Yes Plan: Started on Statin - Unclear why he was started on low dose and not high intensity statin given history - Will discuss with cardiology (4) NSVT (nonsustained ventricular tachycardia) Is this a current diagnosis for this admission?: Yes Plan: Had 14 beat run of asymptomatic NSVT, no events reported since that time - Time Time Spent with patient: 15-24 minutes Within: within 48 hours
[2017-08-11] MEDS ORDERED: AMINOPHYLLINE INJ/PF 250 MG/10 ML SDV IV ONE (12:46)
[2017-08-11] MEDS ORDERED: REGADENOSON INJ 0.4 MG/5 ML DISP.SYRIN IV ONE (12:46)
[2017-08-11] MEDS: NORMAL SALINE 1000 ML 1,000 ML IV PRN (14:46)
--- NOTE | 2017-08-11 18:43 | DRAGON STRESS TEST REPORT ---
INTRAVENOUS LEXISCAN CARDIOLITE STRESS TEST USING SINGLE PHOTON EMMISION COMPUTERIZED TOMOGRAPHIC. DATE OF PROCEDURE: August 11, 2017, INDICATION : Cardiomyopathy, nonsustained ventricular tachycardia CARDIAC RISK FACTORS: Hypertension, tobacco abuse RESTING EKG: Atrial flutter with controlled ventricular response. STRESS EKG: No significant changes noted with LexiScan bolus REASON FOR TERMINATION: Protocol. PROCEDURE REPORT: Baseline heart rate 90 beats per minute with blood pressure of 142/89. Patient had no significant complaints. Heart rate at 2 minutes post bolus 109 with a blood pressure of 116/82. 3 minutes post bolus heart rate 104 with blood pressure of 126/80. No significant EKG changes were noted. Patient had no significant complaints during the procedure or postprocedure. Patient injected with Aminophyllin 75 mg at 3 minutes or later after Lexiscan bolus. CONCLUSIONS: Normal EKG and hemodynamic response to IV LexiScan. NUCLEAR DATA: At rest the patient was given 10.93 millicuries of technetium 99 sestamibi injected intravenously. As per protocol rest gated SPECT images were obtained. On day of stress test, the patient was given intravenous LexiScan at a dose of 0.4 mg in 5 mL intravenously, followed by flush with normal saline. Subsequently the stress dose of 28.7 millicuries of technetium 99 sestamibi was injected intravenously. As per protocol stress gated images were obtained. NUCLEAR INTERPRETATION: Both raw and processed data were used for interpretation. Visual, qualitative, computer-generated quantitative data was used. There was good myocardial uptake of technetium compound. Motion artifact and soft tissue attenuations were noted. Increased visceral uptake was noted. No definitive areas of transient perfusion defect noted, No definitive areas of fixed perfusion defect or scars noted. EKG gated imaging showed LV EF at 20 %, rest and stress gated EF similar visually. T. I D. ratio was 1.02. Lung heart ratio noted to be within normal limits 0.37. No significant extracardiac and abnormal radiotracer activities were noted. RV free wall uptake was noted to be WNL. IMPRESSION: Also refer to comments under nuclear interpretation. Also test results needs to be interpreted in the context of pretest probability. 1. No definitive areas of transient perfusion defect noted. 2. There is no definitive scintigraphic evidence of myocardial infarction/scar. 3. EKG gated imaging shows left ventricular ejection fraction of approx. 20 %. 4. Clinical correlation requested as occasionally single vessel disease or balanced ischemia could be missed. In approximately 10% of the cases Lexiscan may not cause adequate vasodilatory stress. RECOMMENDATIONS: Aggressive risk factor modification and medical management. Further evaluation may be needed if continued symptoms or other high risk indicators are noted on clinical evaluation. Close cardiology follow-up is also recommended. Clinical correlation with echocardiogram derived ejection fraction. Inability to exercise by itself can lead to increased cardiovascular event risks. Consider cardiology consultation and or follow-up if clinically indicated. I am available for cardiology evaluation and consultation if requested by the stay cutter, unless patient already has a technical supervisor. PEDRO
[2017-08-11] MEDS: ATORVASTATIN CALCIUM 10 MG TABLET PO SCH (22:11)
[2017-08-12 07:07] LABS: ANION GAP 9 (5-19); BLOOD UREA NITROGEN 17 mg/dL (7-20); CALCIUM 8.3 mg/dL (8.4-10.2); CARBON DIOXIDE 19 mmol/L (22-30); CHLORIDE 111 mmol/L (98-107); GLUCOSE 106 mg/dL (75-110); POTASSIUM 3.8 mmol/L (3.6-5.0); SODIUM 139.4 mmol/L (137-145)
[2017-08-12 07:16] LABS: HEMATOCRIT 32.8 % (37.9-51.0); HEMOGLOBIN 11.3 g/dL (13.5-17.0); MEAN CORPUSCULAR HEMOGLOBIN 32.7 pg (27.0-33.4); MEAN CORPUSCULAR HGB CONC 34.4 g/dL (32.0-36.0); MEAN CORPUSCULAR VOLUME 95 fl (80-97); PLATELET COUNT 162 10^3/uL (150-450); RED BLOOD COUNT 3.46 10^6/uL (4.35-5.55); RED CELL DISTRIBUTION WIDTH 13.5 % (11.5-14.0); WHITE BLOOD COUNT 7.5 10^3/uL (4.0-10.5)
[2017-08-12] MEDS: APIXABAN 5 MG TABLET PO SCH ×2 (10:36→21:36)
[2017-08-12] MEDS: ASPIRIN 81 MG TABLET, ENT COATED PO SCH (11:23)
[2017-08-12] MEDS: THIAMINE HCL 100 MG TABLET PO SCH (11:24)
[2017-08-12] MEDS: CARVEDILOL 6.25 MG TABLET PO SCH ×2 (11:24→21:35)
[2017-08-12] MEDS: MULTIVITAMIN TABLET PO SCH (11:24)
--- NOTE | 2017-08-12 12:31 | PDOC PROGRESS REPORT ---
Subjective Progress Note for:: 08/12/17 Subjective:: Patient stated that he was not feeling well earlier this morning. Patient also reported that he felt weak. Reason For Visit: NEW ONSET AFLUTTER Physical Exam Vital Signs: Temp Pulse Resp BP Pulse Ox 98.1 F 68 18 113/76 93 08/12/17 08:19 08/12/17 08:19 08/12/17 08:19 08/12/17 08:19 08/12/17 08:19 Intake & Output 08/11/17 08/12/17 08/13/17 06:59 06:59 06:59 Intake Total 2230 1745 Output Total 920 1675 Balance 1310 70 Weight 66.7 kg 65.3 kg General appearance: PRESENT: no acute distress, thin Head exam: PRESENT: atraumatic, normocephalic Eye exam: PRESENT: conjunctiva pink, EOMI. ABSENT: scleral icterus Ear exam: PRESENT: normal external ear exam Mouth exam: PRESENT: moist, tongue midline Neck exam: ABSENT: carotid bruit, JVD, lymphadenopathy, thyromegaly Respiratory exam: PRESENT: clear to auscultation rosita. ABSENT: rales, rhonchi, wheezes Cardiovascular exam: PRESENT: RRR. ABSENT: diastolic murmur, rubs, systolic murmur Pulses: PRESENT: normal dorsalis pedis pul Vascular exam: PRESENT: normal capillary refill GI/Abdominal exam: PRESENT: normal bowel sounds, soft. ABSENT: distended, guarding, mass, organolmegaly, rebound, tenderness Rectal exam: PRESENT: deferred Extremities exam: PRESENT: full ROM. ABSENT: calf tenderness, clubbing, pedal edema Neurological exam: PRESENT: alert, awake, oriented to person, oriented to place , oriented to time, oriented to situation, CN II-XII grossly intact. ABSENT: motor sensory deficit Psychiatric exam: PRESENT: appropriate affect, normal mood. ABSENT: homicidal ideation, suicidal ideation Skin exam: PRESENT: dry, intact, warm. ABSENT: cyanosis, rash Results Laboratory Results: 08/12/17 04:36 08/12/17 04:36 08/12/17 08/12/17 04:36 04:36 WBC 7.5 RBC 3.46 L Hgb 11.3 L Hct 32.8 L MCV 95 MCH 32.7 MCHC 34.4 RDW 13.5 Plt Count 162 Sodium 139.4 Potassium 3.8 Chloride 111 H Carbon Dioxide 19 L Anion Gap 9 BUN 17 Creatinine 1.02 Est GFR ( Amer) > 60 Est GFR (Non-Af Amer) > 60 Glucose 106 Calcium 8.3 L 08/10/17 04:34 Creatine Kinase 124 Impressions: Cervical Spine CT 08/07/17 10:29 IMPRESSION: Questionable nondisplaced dorsal spinous process fracture C6 and C 7. This may be artifact of patient motion and osteopenia. No evidence of unstable fracture. Chest X-Ray 08/07/17 10:29 IMPRESSION: NO ACUTE RADIOGRAPHIC FINDING IN THE CHEST. Head CT 08/07/17 10:29 IMPRESSION: CHRONIC CHANGES OF ATROPHY AND MICROVASCULAR ISCHEMIA. NO ACUTE PROCESS. EVIDENCE OF ACUTE STROKE: NO. Assessment & Plan - Diagnosis (1) Atrial fibrillation and flutter Is this a current diagnosis for this admission?: Yes Plan: Heart rate is well controlled. Continue Eliquis, carvedilol, and aspirin. (2) Cardiomyopathy Qualifiers: Cardiomyopathy type: unspecified Qualified Code(s): I42.9 - Cardiomyopathy , unspecified Is this a current diagnosis for this admission?: Yes Plan: Patient with EF of 25-30%: Patient been arranged for LifeVest. Patient will continue on Entresto (3) Dyslipidemia Is this a current diagnosis for this admission?: Yes Plan: Statin (4) NSVT (nonsustained ventricular tachycardia) Is this a current diagnosis for this admission?: Yes Plan: Patient had a 14 beat run of asymptomatic nonsustained V. tach. Patient has not had any further episodes. (5) Moderate protein-calorie malnutrition Is this a current diagnosis for this admission?: Yes Plan: We will continue to encourage good p.o. intake and supplemental drinks. (6) Debility Is this a current diagnosis for this admission?: Yes Plan: PT OT - Time Time Spent with patient: 15-24 minutes - Will talk to case management about placement.
--- NOTE | 2017-08-12 13:40 | PDOC PROGRESS REPORT ---
Subjective Progress Note for:: 08/11/17 Subjective:: I was called yesterday about 15 beat run of nonsustained wide-complex tachycardia. Patient was reported to be asymptomatic. However no strips were placed in the chart. Patient is is being patient denying any fever chills. Patient denying any other significant discomfort. Patient however noted marked general weakness and claims to be feeling very weak. Nuclear stress test procedure was explained to the patient in detail. Risks benefits were discussed and informed consent was obtained. Alternatives were discussed. Patient informed that based on risk factors, physical exam, lab data findings and symptoms there is at least intermediate probability of underlying CAD. Nuclear stress test procedure was therefore scheduled. Telemetry strip shows atrial flutter fibrillation. Telemetry strips reviewed showed wide-complex tachycardia strips being placed in the chart from yesterday. Patient being placed on beta-tony yesterday, the dose is being increased. Review of systems: Rest review of systems negative. Medications: Medications have been reviewed. Reason For Visit: NEW ONSET AFLUTTER Physical Exam Vital Signs: Temp Pulse Resp BP Pulse Ox 98.1 F 75 16 109/69 96 08/11/17 17:00 08/11/17 17:00 08/11/17 17:00 08/11/17 17:00 08/11/17 17:00 Intake & Output 08/10/17 08/11/17 08/12/17 06:59 06:59 06:59 Intake Total 3142 2230 1380 Output Total 076 135 9963 Balance 2617 1310 330 Weight 64.4 kg 66.7 kg Exam: GENERAL: well-nourished and in no acute distress. Alert and oriented x3 HEAD: Atraumatic, normocephalic. EYES: Pupils equal round and reactive to light, extraocular movements intact, sclera anicteric, conjunctiva are normal. ENT: TMs normal, nares patent, oropharynx clear without exudates. Moist mucous membranes. No oral ulcerations or bleeding gums noted NECK: supple without lymphadenopathy. Trachea is central. No cervical or axillary lymphadenopathy noted. Carotids are 2+, JVD WNL LUNGS: Respiration seems nonlabored, no significant accessory muscle action noted. Breath sounds clear to auscultation bilaterally and equal noted. No wheezes rales or rhonchi noted. No significant dullness noted on percussion. CHEST: Palpation of the chest wall shows no significant chest wall tenderness. No other significant abnormalities noted. 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 ABDOMEN: Soft, no significant tenderness appreciated, normoactive bowel sounds. No guarding, no rebound. No rigidity noted . No masses appreciated. EXTREMITIES: Pedal pulses are 1-2+, no calf tenderness noted. No clubbing or cyanosis.trace to 1+ pedal edema noted NEUROLOGICAL: Focused neurological exam showed no significant neurologic deficit. Normal speech, patient complains of generalized weakness and also marked weakness in his lower extremity. PSYCH: Normal mood, normal affect. Judgment and insight within normal limits. SKIN: No significant ecchymosis, rash, ulcerations or signs of pruritus noted. MUSCULOSKELETAL EXAM: No significant joint swelling noted. Results Laboratory Results: 08/10/17 04:34 08/10/17 04:34 Creatine Kinase 124 Impressions: Cervical Spine CT 08/07/17 10:29 IMPRESSION: Questionable nondisplaced dorsal spinous process fracture C6 and C 7. This may be artifact of patient motion and osteopenia. No evidence of unstable fracture. Chest X-Ray 08/07/17 10:29 IMPRESSION: NO ACUTE RADIOGRAPHIC FINDING IN THE CHEST. Head CT 08/07/17 10:29 IMPRESSION: CHRONIC CHANGES OF ATROPHY AND MICROVASCULAR ISCHEMIA. NO ACUTE PROCESS. EVIDENCE OF ACUTE STROKE: NO. Assessment & Plan - Diagnosis (1) Syncope and collapse Is this a current diagnosis for this admission?: Yes (2) Atrial fibrillation and flutter Is this a current diagnosis for this admission?: Yes (3) Cardiomyopathy Qualifiers: Cardiomyopathy type: unspecified Qualified Code(s): I42.9 - Cardiomyopathy , unspecified Is this a current diagnosis for this admission?: Yes (4) NSVT (nonsustained ventricular tachycardia) Is this a current diagnosis for this admission?: Yes (5) Debility Is this a current diagnosis for this admission?: Yes (6) Muscle weakness Is this a current diagnosis for this admission?: Yes (7) Dyslipidemia Is this a current diagnosis for this admission?: Yes - Notes Notes: Syncope and collapse: Exact etiology not clear but in view of depressed LVEF, cannot rule out ventricular tachyarrhythmia. Patient has prior history of alcohol abuse but alcohol level obtained yesterday which was quite a bit later than admission time showed normal alcohol level. Have placed patient on entresto to help with cardiomyopathy. Patient has nonsustained wide-complex tachycardia most likely V. tach. Patient was asymptomatic. Patient would need to wear LifeVest on discharge. Atrial flutter fibrillation: Patient has high chads score. Will add Eliquis. Cardiomyopathy: Started entresto yesterday. Continue carvedilol. Gradually increase dose as tolerated. Nonsustained ventricular tachycardia: Patient will definitely benefit from being discharged on LifeVest. Nuclear stress test completed today. Results discussed. General debility and muscle weakness. Total CK was normal. Patient will benefit from OT PT evaluation.. Patient will benefit from abstinence from alcohol. 2D echo results discussed with the patient. Nuclear stress test results discussed with the patient. - Time Time with patient: Greater than 35 minutes - Patient was seen multiple times. Total time exceeds 40 minutes. In the morning nuclear stress test procedure, risks benefits, alternatives were discussed. Patient seen during the stress test. Patient also seen after stress test when results were discussed with the patient in detail. Patient's questions were answered. Nuclear stress test results were discussed with the patient. Patient was informed that no definitive evidence of pharmacologic stress-induced ischemia noted. No definite fixed defects were noted. Patient informed that occasionally significant single vessel disease or balanced ischemia could be missed. However based on the current study results, would recommend aggressive risk factor modification and medical therapy. It may also be worthwhile to consider evaluation or empiric management of other causes of chest pain. Should no other cause be found and if persistent in having chest pain, then cardiac catheterization should be considered. Right now, recommendations are for aggressive risk factor modification and medical management. CODE STATUS was discussed, patient remains full code. Surrogate decision-maker unchanged. Multiple medical problems were addressed. More than 50% of the time spent coordinating care, discussing management plans with involved caregivers. Management plans discussed with involved personnels. Medical decision making was of moderate to high complexity, patient's has multiple comorbidities. Medications reviewed and adjusted accordingly: Yes
[2017-08-12] MEDS: SACUBITRIL/VALSARTAN 24 MG/26 MG TABLET PO SCH ×2 (17:20→21:36)
[2017-08-12] MEDS: ATORVASTATIN CALCIUM 10 MG TABLET PO SCH (21:35)
[2017-08-12] MEDS: OXYCODONE-ACETAMINOPHEN 5-325 MG TABLET PO PRN (21:37)
[2017-08-13] MEDS: THIAMINE HCL 100 MG TABLET PO SCH (09:35)
[2017-08-13] MEDS: APIXABAN 5 MG TABLET PO SCH ×2 (09:35→21:14)
[2017-08-13] MEDS: MULTIVITAMIN TABLET PO SCH (09:35)
[2017-08-13] MEDS: CARVEDILOL 6.25 MG TABLET PO SCH ×2 (09:35→21:14)
[2017-08-13] MEDS: SACUBITRIL/VALSARTAN 24 MG/26 MG TABLET PO SCH ×2 (09:35→21:14)
[2017-08-13] MEDS: ASPIRIN 81 MG TABLET, ENT COATED PO SCH (09:35)
[2017-08-13] MEDS: OXYCODONE-ACETAMINOPHEN 5-325 MG TABLET PO PRN (09:40)
--- NOTE | 2017-08-13 13:12 | PDOC PROGRESS REPORT ---
Subjective Progress Note for:: 08/13/17 Subjective:: Pt states that he is doing ok. Case management states that they are working on placement. Reason For Visit: NEW ONSET AFLUTTER Physical Exam Vital Signs: Temp Pulse Resp BP Pulse Ox 98.7 F 64 12 123/68 92 08/13/17 07:21 08/13/17 07:21 08/13/17 07:21 08/13/17 07:21 08/13/17 07:21 Intake & Output 08/12/17 08/13/17 08/14/17 06:59 06:59 06:59 Intake Total 1745 2638 Output Total 1675 2075 Balance 70 563 Weight 65.3 kg 67.1 kg General appearance: PRESENT: no acute distress, thin, well-nourished Head exam: PRESENT: atraumatic, normocephalic Eye exam: PRESENT: conjunctiva pink, EOMI. ABSENT: scleral icterus Ear exam: PRESENT: normal external ear exam Mouth exam: PRESENT: moist, tongue midline Neck exam: ABSENT: carotid bruit, JVD, lymphadenopathy, thyromegaly Respiratory exam: ABSENT: rales, rhonchi, wheezes Cardiovascular exam: PRESENT: RRR. ABSENT: diastolic murmur, rubs, systolic murmur Pulses: PRESENT: normal dorsalis pedis pul Vascular exam: PRESENT: normal capillary refill GI/Abdominal exam: PRESENT: normal bowel sounds, soft. ABSENT: distended, guarding, mass, organolmegaly, rebound, tenderness Rectal exam: PRESENT: deferred Extremities exam: ABSENT: calf tenderness, clubbing, pedal edema Neurological exam: PRESENT: alert, awake, oriented to person, oriented to place , oriented to time. ABSENT: motor sensory deficit Psychiatric exam: PRESENT: appropriate affect, normal mood. ABSENT: homicidal ideation, suicidal ideation Skin exam: PRESENT: dry, intact, warm. ABSENT: cyanosis, rash Results Laboratory Results: 08/12/17 04:36 08/12/17 04:36 08/10/17 04:34 Creatine Kinase 124 Impressions: Cervical Spine CT 08/07/17 10:29 IMPRESSION: Questionable nondisplaced dorsal spinous process fracture C6 and C 7. This may be artifact of patient motion and osteopenia. No evidence of unstable fracture. Chest X-Ray 08/07/17 10:29 IMPRESSION: NO ACUTE RADIOGRAPHIC FINDING IN THE CHEST. Head CT 08/07/17 10:29 IMPRESSION: CHRONIC CHANGES OF ATROPHY AND MICROVASCULAR ISCHEMIA. NO ACUTE PROCESS. EVIDENCE OF ACUTE STROKE: NO. Assessment & Plan - Diagnosis (1) Atrial fibrillation and flutter Is this a current diagnosis for this admission?: Yes Plan: Heart rate is well controlled. Continue Eliquis, carvedilol, and aspirin. (2) Cardiomyopathy Qualifiers: Cardiomyopathy type: unspecified Qualified Code(s): I42.9 - Cardiomyopathy , unspecified Is this a current diagnosis for this admission?: Yes Plan: Patient with EF of 25-30%: Patient been arranged for LifeVest. Patient will continue on Entresto (3) Dyslipidemia Is this a current diagnosis for this admission?: Yes Plan: Statin (4) NSVT (nonsustained ventricular tachycardia) Is this a current diagnosis for this admission?: Yes Plan: Patient had a 14 beat run of asymptomatic nonsustained V. tach. Patient has not had any further episodes. (5) Moderate protein-calorie malnutrition Is this a current diagnosis for this admission?: Yes Plan: We will continue to encourage good p.o. intake and supplemental drinks. (6) Debility Is this a current diagnosis for this admission?: Yes Plan: PT OT (7) Laceration of face Qualifiers: Encounter type: initial encounter Qualified Code(s): S01.81XA - Laceration without foreign body of other part of head, initial encounter Is this a current diagnosis for this admission?: Yes Plan: Status post suture placement right lower brow 4 cm: Stable - Time Time Spent with patient: 15-24 minutes
--- NOTE | 2017-08-13 19:22 | PDOC PROGRESS REPORT ---
Subjective Progress Note for:: 08/12/17 Subjective:: Patient continues to claim generalized weakness. He has not ambulated much. He is however denying any chest pain or shortness of breath. He claims significant weakness both lower extremity. Telemetry strip shows atrial flutter fibrillation. Telemetry strips reviewed showed no further wide-complex tachycardias. Patient currently on carvedilol at 6.25 mg p.o. twice daily. Review of systems: Rest review of systems negative. Medications: Medications have been reviewed. Reason For Visit: NEW ONSET AFLUTTER Physical Exam Vital Signs: Temp Pulse Resp BP Pulse Ox 98.4 F 69 16 109/62 96 08/12/17 16:00 08/12/17 16:00 08/12/17 16:00 08/12/17 16:00 08/12/17 16:00 Intake & Output 08/11/17 08/12/17 08/13/17 06:59 06:59 06:59 Intake Total 2230 1745 2050 Output Total 920 1675 1475 Balance 1310 70 575 Weight 66.7 kg 65.3 kg Exam: GENERAL: well-nourished and in no acute distress. Alert and oriented x3 HEAD: Atraumatic, normocephalic. EYES: Pupils equal round and reactive to light, extraocular movements intact, sclera anicteric, conjunctiva are normal. Sutured wound noted above left eyebrow. ENT: TMs normal, nares patent, oropharynx clear without exudates. Moist mucous membranes. No oral ulcerations or bleeding gums noted NECK: supple without lymphadenopathy. Trachea is central. No cervical or axillary lymphadenopathy noted. Carotids are 2+, JVD WNL LUNGS: Respiration seems nonlabored, no significant accessory muscle action noted. Breath sounds clear to auscultation bilaterally and equal noted. No wheezes rales or rhonchi noted. No significant dullness noted on percussion. CHEST: Palpation of the chest wall shows no significant chest wall tenderness. No other significant abnormalities noted. 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 ABDOMEN: Soft, no significant tenderness appreciated, normoactive bowel sounds. No guarding, no rebound. No rigidity noted . No masses appreciated. EXTREMITIES: Pedal pulses are 1-2+, no calf tenderness noted. No clubbing or cyanosis.trace to 1+ pedal edema noted NEUROLOGICAL: Focused neurological exam showed no significant neurologic deficit. Normal speech, generalized weakness noted. Both lower extremity seems somewhat weaker.. PSYCH: Normal mood, normal affect. Judgment and insight within normal limits. SKIN: No significant ecchymosis, rash, ulcerations or signs of pruritus noted. MUSCULOSKELETAL EXAM: No significant joint swelling noted. Results Laboratory Results: 08/12/17 04:36 08/12/17 04:36 08/12/17 08/12/17 04:36 04:36 WBC 7.5 RBC 3.46 L Hgb 11.3 L Hct 32.8 L MCV 95 MCH 32.7 MCHC 34.4 RDW 13.5 Plt Count 162 Sodium 139.4 Potassium 3.8 Chloride 111 H Carbon Dioxide 19 L Anion Gap 9 BUN 17 Creatinine 1.02 Est GFR ( Amer) > 60 Est GFR (Non-Af Amer) > 60 Glucose 106 Calcium 8.3 L 08/10/17 04:34 Creatine Kinase 124 EKG Comments: Atrial flutter with controlled ventricular response. No significant ventricular dysrhythmias noted in the last 24 hours. Impressions: Cervical Spine CT 08/07/17 10:29 IMPRESSION: Questionable nondisplaced dorsal spinous process fracture C6 and C 7. This may be artifact of patient motion and osteopenia. No evidence of unstable fracture. Chest X-Ray 08/07/17 10:29 IMPRESSION: NO ACUTE RADIOGRAPHIC FINDING IN THE CHEST. Head CT 08/07/17 10:29 IMPRESSION: CHRONIC CHANGES OF ATROPHY AND MICROVASCULAR ISCHEMIA. NO ACUTE PROCESS. EVIDENCE OF ACUTE STROKE: NO. Assessment & Plan - Diagnosis (1) Syncope and collapse Is this a current diagnosis for this admission?: Yes (2) Atrial fibrillation and flutter Is this a current diagnosis for this admission?: Yes (3) Cardiomyopathy Qualifiers: Cardiomyopathy type: unspecified Qualified Code(s): I42.9 - Cardiomyopathy , unspecified Is this a current diagnosis for this admission?: Yes (4) NSVT (nonsustained ventricular tachycardia) Is this a current diagnosis for this admission?: Yes (5) Debility Is this a current diagnosis for this admission?: Yes (6) Muscle weakness Is this a current diagnosis for this admission?: Yes (7) Dyslipidemia Is this a current diagnosis for this admission?: Yes - Notes Notes: Syncope and collapse: Exact etiology not clear but in view of depressed LVEF, cannot rule out ventricular tachyarrhythmia. Have signed forms for patient to get a wearable LifeVest. It is not yet been delivered. Patient would need to wear LifeVest on discharge. Atrial flutter fibrillation: Patient has high chads score. Continue with Eliquis Cardiomyopathy: Continue entresto. Continue carvedilol. Gradually increase dose as tolerated. Nonsustained ventricular tachycardia: Patient will definitely benefit from being discharged on LifeVest. Nuclear stress test results reviewed. No significant ischemia noted. General debility and muscle weakness. Total CK was normal. Patient to work with OT and PT.. Patient will benefit from abstinence from alcohol. 2D echo results discussed with the patient. Nuclear stress test results discussed with the patient. - Time Time with patient: Greater than 35 minutes - CODE STATUS was discussed, patient remains full code. Surrogate decision-maker unchanged. Multiple medical problems were addressed. More than 50% of the time spent coordinating care, discussing management plans with involved caregivers. Management plans discussed with involved personnels. Medical decision making was of moderate to high complexity, patient's has multiple comorbidities. Medications reviewed and adjusted accordingly: Yes
--- NOTE | 2017-08-13 19:25 | PDOC PROGRESS REPORT ---
Subjective Progress Note for:: 08/13/17 Subjective:: Patient continues to complain of generalized weakness. He is denying any chest pain or shortness of breath. Telemetry strip shows atrial flutter fibrillation. No sustained ventricular tachyarrhythmia noted in the last 48 hours. Review of systems: Rest review of systems negative. Medications: Medications have been reviewed. Reason For Visit: NEW ONSET AFLUTTER Physical Exam Vital Signs: Temp Pulse Resp BP Pulse Ox 99.0 F 66 16 111/56 L 92 08/13/17 16:13 08/13/17 16:13 08/13/17 16:13 08/13/17 16:13 08/13/17 07:21 Intake & Output 08/12/17 08/13/17 08/14/17 06:59 06:59 06:59 Intake Total 1745 2638 583 Output Total 1675 2075 640 Balance 70 563 -57 Weight 65.3 kg 67.1 kg Exam: GENERAL: well-nourished and in no acute distress. Alert and oriented x3 HEAD: Atraumatic, normocephalic. Sutured wound noted above the left eyebrow. EYES: Pupils equal round and reactive to light, extraocular movements intact, sclera anicteric, conjunctiva are normal. ENT: TMs normal, nares patent, oropharynx clear without exudates. Moist mucous membranes. No oral ulcerations or bleeding gums noted NECK: supple without lymphadenopathy. Trachea is central. No cervical or axillary lymphadenopathy noted. Carotids are 2+, JVD WNL LUNGS: Respiration seems nonlabored, no significant accessory muscle action noted. Breath sounds clear to auscultation bilaterally and equal noted. No wheezes rales or rhonchi noted. No significant dullness noted on percussion. CHEST: Palpation of the chest wall shows no significant chest wall tenderness. No other significant abnormalities noted. 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 ABDOMEN: Soft, no significant tenderness appreciated, normoactive bowel sounds. No guarding, no rebound. No rigidity noted . No masses appreciated. EXTREMITIES: Pedal pulses are 1-2+, no calf tenderness noted. No clubbing or cyanosis.trace to 1+ pedal edema noted NEUROLOGICAL: Focused neurological exam showed no significant neurologic deficit. Normal speech, generalized weakness noted with some increased weakness both lower legs PSYCH: Normal mood, normal affect. Judgment and insight within normal limits. SKIN: No significant ecchymosis, rash, ulcerations or signs of pruritus noted. MUSCULOSKELETAL EXAM: No significant joint swelling noted. Results Laboratory Results: 08/12/17 04:36 08/12/17 04:36 08/10/17 04:34 Creatine Kinase 124 EKG Comments: Atrial flutter fibrillation with controlled ventricular response Impressions: Cervical Spine CT 08/07/17 10:29 IMPRESSION: Questionable nondisplaced dorsal spinous process fracture C6 and C 7. This may be artifact of patient motion and osteopenia. No evidence of unstable fracture. Chest X-Ray 08/07/17 10:29 IMPRESSION: NO ACUTE RADIOGRAPHIC FINDING IN THE CHEST. Head CT 08/07/17 10:29 IMPRESSION: CHRONIC CHANGES OF ATROPHY AND MICROVASCULAR ISCHEMIA. NO ACUTE PROCESS. EVIDENCE OF ACUTE STROKE: NO. Assessment & Plan - Diagnosis (1) Syncope and collapse Is this a current diagnosis for this admission?: Yes (2) Atrial fibrillation and flutter Is this a current diagnosis for this admission?: Yes (3) Cardiomyopathy Qualifiers: Cardiomyopathy type: unspecified Qualified Code(s): I42.9 - Cardiomyopathy , unspecified Is this a current diagnosis for this admission?: Yes (4) NSVT (nonsustained ventricular tachycardia) Is this a current diagnosis for this admission?: Yes (5) Debility Is this a current diagnosis for this admission?: Yes (6) Muscle weakness Is this a current diagnosis for this admission?: Yes (7) Dyslipidemia Is this a current diagnosis for this admission?: Yes - Notes Notes: Syncope and collapse: No further spells since admission. No significant ventricular dysrhythmia noted in the last 48 hours. Atrial flutter fibrillation: Patient has high chads score. Continue Eliquis therapy. Rate well controlled on beta-tony. Cardiomyopathy: Continue entresto. Continue carvedilol. Gradually increase dose as tolerated. Nonsustained ventricular tachycardia: Patient will definitely benefit from being discharged on LifeVest. This was arranged. LifeVest form completed. General debility and muscle weakness. Patient will benefit from rehab. Patient will benefit from abstinence from alcohol. - Time Time with patient: Greater than 35 minutes - CODE STATUS was discussed, patient remains full code. Surrogate decision-maker unchanged. Multiple medical problems were addressed. More than 50% of the time spent coordinating care, discussing management plans with involved caregivers. Management plans discussed with involved personnels. Medical decision making was of moderate to high complexity, patient's has multiple comorbidities. Medications reviewed and adjusted accordingly: Yes
[2017-08-13] MEDS: ATORVASTATIN CALCIUM 10 MG TABLET PO SCH (21:14)
[2017-08-14] MEDS: CARVEDILOL 6.25 MG TABLET PO SCH ×2 (11:21→21:46)
[2017-08-14] MEDS: APIXABAN 5 MG TABLET PO SCH ×2 (11:32→21:46)
[2017-08-14] MEDS: SACUBITRIL/VALSARTAN 24 MG/26 MG TABLET PO SCH ×2 (11:32→21:46)
[2017-08-14] MEDS: ASPIRIN 81 MG TABLET, ENT COATED PO SCH (11:33)
[2017-08-14] MEDS: MULTIVITAMIN TABLET PO SCH (11:33)
[2017-08-14] MEDS: THIAMINE HCL 100 MG TABLET PO SCH (11:34)
--- NOTE | 2017-08-14 12:56 | PDOC DISCHARGE SUMMARY ---
General - Admit/Disc Date/PCP Admission Date/Primary Care Provider: 08/09/17 14:46 ARIN LEON MD Discharge Date: 08/14/17 - Discharge Diagnosis (1) Atrial fibrillation and flutter Is this a current diagnosis for this admission?: Yes Summary: Continue Eliquis, Carvedilol, and aspirin. (2) Cardiomyopathy Is this a current diagnosis for this admission?: Yes Summary: Newly Onset Systolic 25-30% requiring LifeVest: Will continue Eliquis, carvedilol, Entresto, and aspirin. (3) Dyslipidemia Is this a current diagnosis for this admission?: Yes Summary: Statin (4) NSVT (nonsustained ventricular tachycardia) Is this a current diagnosis for this admission?: Yes Summary: Resolved. (5) Moderate protein-calorie malnutrition Is this a current diagnosis for this admission?: Yes Summary: Continue magace and supplemental drinks (6) Debility Is this a current diagnosis for this admission?: Yes Summary: PT/OT (7) Laceration of face Is this a current diagnosis for this admission?: Yes Summary: Status Post Suture Placement Right Lower Brow 4 CM: Stable. - Additional Information Resuscitation Status: Full Code Discharge Diet: Cardiac Discharge Activity: Activity As Tolerated Prescriptions: Oxycodone HCl/Acetaminophen [Percocet 5-325 mg Tablet] 1 tab PO Q6HP PRN #5 tablet PRN Reason: Home Medications: Citalopram Hydrobromide [Celexa] 20 mg PO DAILY 08/07/17 Megestrol Acetate 40 mg PO DAILY 08/07/17 Acetaminophen [Tylenol 325 mg Tablet] 325 mg PO Q4HP PRN tablet 08/14/17 Apixaban [Eliquis 5 mg Tablet] 5 mg PO Q12 tablet 08/14/17 Aspirin [Ecotrin 81 mg EC Tablet] 81 mg PO DAILY tabec 08/14/17 Atorvastatin Calcium [Lipitor 10 mg Tablet] 10 mg PO QHS tablet 08/14/17 Carvedilol [Coreg 6.25 mg Tablet] 6.25 mg PO Q12 tablet 08/14/17 Multivitamin [Tab-A-Deepa (Multiple Vitamin) Tablet] 1 tab PO DAILY tablet 08/14 Oxycodone HCl/Acetaminophen [Percocet 5-325 mg Tablet] 1 tab PO Q6HP PRN #5 tablet 08/14/17 Sacubitril/Valsartan [Entresto 24 mg/26 mg Tablet] 1 tab PO Q12 tablet History of Present Illness Patient complains of: Dizzy/Syncope History of Present Illness: KATT HERNÁNDEZ JR is a 76 year old male presented to the hospital with complaint of dizziness. Patient was found to have viewed on chronic systolic congestive heart failure with EF of 25-30%. Patient was also found to be in A. fib/flutter with heart rate as high as 250. Patient was seen by cardiology and placed on appropriate medication and heart rate has improved. At time of admission is patient had sustained a left upper eyelid lac requiring 4 stitches. Pt was placed on diuretics to help with volume overload. Patient was noted to have moderate protein caloric malnutrition and was placed on appetite stimulant and encouraged to use supplemental drinks. Patient was also noted to have debility and family has requested that patient go to rehab prior to returning home. Patient is in agreement with going to rehab for strengthening. Patient has a LifeVest present in room that he will wear at rehab facility. Hospital Course Hospital Course: AKTT HERNÁNDEZ JR is a 76 year old male presented to the hospital with complaint of dizziness. Patient was found to have viewed on chronic systolic congestive heart failure with EF of 25-30%. Patient was also found to be in A. fib/flutter with heart rate as high as 250. Patient was seen by cardiology and placed on appropriate medication and heart rate has improved. At time of admission is patient had sustained a left upper eyelid lac requiring 4 stitches. Pt was placed on diuretics to help with volume overload. Patient was noted to have moderate protein caloric malnutrition and was placed on appetite stimulant and encouraged to use supplemental drinks. Patient was also noted to have debility and family has requested that patient go to rehab prior to returning home. Patient is in agreement with going to rehab for strengthening. Patient has a LifeVest present in room that he will wear at rehab facility. Physical Exam Vital Signs: Temp Pulse Resp BP Pulse Ox 97.4 F 89 16 115/64 93 08/14/17 04:07 08/14/17 04:07 08/14/17 04:07 08/14/17 04:07 08/14/17 04:07 Intake & Output 08/13/17 08/14/17 08/15/17 06:59 06:59 06:59 Intake Total 2638 995 Output Total 2072 1065 Balance 563 -70 Weight 67.1 kg 69.1 kg General appearance: PRESENT: no acute distress, well-developed, well-nourished Head exam: PRESENT: other - Left upper eyelid closed wound Eye exam: PRESENT: conjunctiva pink, EOMI. ABSENT: scleral icterus Ear exam: PRESENT: normal external ear exam Mouth exam: PRESENT: moist, tongue midline Neck exam: ABSENT: carotid bruit, JVD, lymphadenopathy, thyromegaly Respiratory exam: PRESENT: clear to auscultation rosita. ABSENT: rales, rhonchi, wheezes Cardiovascular exam: PRESENT: RRR. ABSENT: diastolic murmur, rubs, systolic murmur Pulses: PRESENT: normal dorsalis pedis pul Vascular exam: PRESENT: normal capillary refill GI/Abdominal exam: PRESENT: normal bowel sounds, soft. ABSENT: distended, guarding, mass, organolmegaly, rebound, tenderness Rectal exam: PRESENT: deferred Extremities exam: PRESENT: full ROM. ABSENT: calf tenderness, clubbing, pedal edema Neurological exam: PRESENT: alert, awake, oriented to person, oriented to place , oriented to time, oriented to situation, CN II-XII grossly intact. ABSENT: motor sensory deficit Psychiatric exam: PRESENT: appropriate affect, normal mood. ABSENT: homicidal ideation, suicidal ideation Skin exam: PRESENT: dry, intact, warm. ABSENT: cyanosis, rash Results Laboratory Results: 08/12/17 04:36 08/12/17 04:36 08/10/17 04:34 Creatine Kinase 124 Impressions: Cervical Spine CT 08/07/17 10:29 IMPRESSION: Questionable nondisplaced dorsal spinous process fracture C6 and C 7. This may be artifact of patient motion and osteopenia. No evidence of unstable fracture. Chest X-Ray 08/07/17 10:29 IMPRESSION: NO ACUTE RADIOGRAPHIC FINDING IN THE CHEST. Head CT 08/07/17 10:29 IMPRESSION: CHRONIC CHANGES OF ATROPHY AND MICROVASCULAR ISCHEMIA. NO ACUTE PROCESS. EVIDENCE OF ACUTE STROKE: NO. Qualifiers - * PATEINT BEING DISCHARGED WITH ANY OF THE FOLLOWING DIAGNOSIS?: Heart Failure TX Pt being discharged on Aspirin therapy?: Yes TX Pt being discharged on Statins?: Yes TX Pt discharged ACEI/ARBS?: Yes HF Pt being discharged on ACEI for LVEF less than 40%?: Yes HF Pt being discharged on ARBS for LVEF less than 40%?: Yes HF Pt with Afib discharged with Warfarin?: Yes HF Pt discharged on evidence-based Beta Adelia:: Yes Plan Time Spent: Greater than 30 Minutes
--- NOTE | 2017-08-14 18:41 | Progress Note ---
Provider Note Provider Note: Patient was seen on morning rounds. Patient currently wearing LifeVest. Telemetry strips reviewed showed atrial flutter with controlled ventricular response. Medications reviewed. Patient will benefit from close cardiology follow-up. Recommend that patient follows up with me in a week.
[2017-08-14 21:12] VITALS: BP 135/89
[2017-08-14] MEDS: ATORVASTATIN CALCIUM 10 MG TABLET PO SCH (21:46)
--- NOTE | 2017-08-15 17:30 | PDOC PROGRESS REPORT ---
Subjective Progress Note for:: 08/14/17 Subjective:: Patient noted to be sitting in bed wearing his LifeVest. He is to be discharged to a rehab unit. Patient questions answered about LifeVest. Patient continues to complain of generalized weakness. He is denying any chest pain or shortness of breath. Telemetry strip shows atrial flutter fibrillation. No sustained ventricular tachyarrhythmia noted in the last 48 hours. Review of systems: Rest review of systems negative. Medications: Medications have been reviewed. Reason For Visit: NEW ONSET AFLUTTER Physical Exam Vital Signs: Temp Pulse Resp BP Pulse Ox 99.2 F 89 12 122/67 94 08/14/17 16:57 08/14/17 16:57 08/14/17 16:57 08/14/17 16:57 08/14/17 16:57 Intake & Output 08/13/17 08/14/17 08/15/17 06:59 06:59 06:59 Intake Total 2638 995 600 Output Total 2075 1065 400 Balance 563 -70 200 Weight 67.1 kg 69.1 kg Exam: GENERAL: well-nourished and in no acute distress. Alert and oriented x3 HEAD: Atraumatic, normocephalic. EYES: Pupils equal round and reactive to light, extraocular movements intact, sclera anicteric, conjunctiva are normal. ENT: TMs normal, nares patent, oropharynx clear without exudates. Moist mucous membranes. No oral ulcerations or bleeding gums noted NECK: supple without lymphadenopathy. Trachea is central. No cervical or axillary lymphadenopathy noted. Carotids are 2+, JVD WNL LUNGS: Respiration seems nonlabored, no significant accessory muscle action noted. Breath sounds clear to auscultation bilaterally and equal noted. No wheezes rales or rhonchi noted. No significant dullness noted on percussion. CHEST: Palpation of the chest wall shows no significant chest wall tenderness. No other significant abnormalities noted. 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 ABDOMEN: Soft, no significant tenderness appreciated, normoactive bowel sounds. No guarding, no rebound. No rigidity noted . No masses appreciated. EXTREMITIES: Pedal pulses are 1-2+, no calf tenderness noted. No clubbing or cyanosis.trace to 1+ pedal edema noted NEUROLOGICAL: Focused neurological exam showed no significant neurologic deficit. Normal speech, generalized weakness reported and weakness of both legs reported. PSYCH: Normal mood, normal affect. Judgment and insight within normal limits. SKIN: No significant ecchymosis, rash, ulcerations or signs of pruritus noted. MUSCULOSKELETAL EXAM: No significant joint swelling noted. Patient claims generalized weakness. Weakness both legs. Results Laboratory Results: 08/12/17 04:36 08/12/17 04:36 08/10/17 04:34 Creatine Kinase 124 EKG Comments: Telemetry strip shows atrial flutter without any sustained tacky or bradycardia arrhythmias. Impressions: Cervical Spine CT 08/07/17 10:29 IMPRESSION: Questionable nondisplaced dorsal spinous process fracture C6 and C 7. This may be artifact of patient motion and osteopenia. No evidence of unstable fracture. Chest X-Ray 08/07/17 10:29 IMPRESSION: NO ACUTE RADIOGRAPHIC FINDING IN THE CHEST. Head CT 08/07/17 10:29 IMPRESSION: CHRONIC CHANGES OF ATROPHY AND MICROVASCULAR ISCHEMIA. NO ACUTE PROCESS. EVIDENCE OF ACUTE STROKE: NO. Assessment & Plan - Diagnosis (1) Syncope and collapse Is this a current diagnosis for this admission?: Yes (2) Atrial fibrillation and flutter Is this a current diagnosis for this admission?: Yes (3) Cardiomyopathy Qualifiers: Cardiomyopathy type: unspecified Qualified Code(s): I42.9 - Cardiomyopathy , unspecified Is this a current diagnosis for this admission?: Yes (4) NSVT (nonsustained ventricular tachycardia) Is this a current diagnosis for this admission?: Yes (5) Debility Is this a current diagnosis for this admission?: Yes (6) Muscle weakness Is this a current diagnosis for this admission?: Yes (7) Dyslipidemia Is this a current diagnosis for this admission?: Yes - Notes Notes: Syncope and collapse: No further spells since admission. No significant ventricular dysrhythmia noted in the last 48 hours. Atrial flutter fibrillation: Patient has high chads score. Continue Eliquis therapy. Rate well controlled on beta-tony. Cardiomyopathy: Continue entresto. Continue carvedilol. Gradually increase dose as tolerated. Nonsustained ventricular tachycardia: Patient will definitely benefit from being discharged on LifeVest. This was arranged. Patient is wearing LifeVest. Importance of continued wearing discussed. General debility and muscle weakness. Patient will benefit from rehab. Patient will benefit from abstinence from alcohol. - Time Time with patient: 15-25 minutes - CODE STATUS was discussed, patient remains full code. Multiple medical problems were addressed. More than 50% of the time spent coordinating care, discussing management plans with involved caregivers. Management plans discussed with involved personnels. Medical decision making was of moderate to high complexity, patient's has multiple comorbidities. Medications reviewed and adjusted accordingly: Yes
== END 2017-08-14 22:30 | DRG 292 ==
LOC: ER 10:00 → EH 14:28 → INTOOBSV 14:28 → 4N 17:56 → OBSVTOIN 08-09 14:46
PROVIDERS: ADMIT Family Medicine; ATTEND Family Medicine
PROC: 0HQ1XZZ Repair Face Skin, External Approach (ICD-10-PCS; principal; 2017-08-07)
PROC: 3E0234Z Introduction of Serum, Toxoid and Vaccine into Muscle, Percutaneous Approach (ICD-10-PCS; 2017-08-07)
PROC: 3E0234Z Introduction of Serum, Toxoid and Vaccine into Muscle, Percutaneous Approach (ICD-10-PCS; 2017-08-14)
DX: I11.0 Hypertensive heart disease with heart failure (principal); I48.92 Unspecified atrial flutter; E44.0 Moderate protein-calorie malnutrition; I50.22 Chronic systolic (congestive) heart failure; I48.91 Unspecified atrial fibrillation; S01.81XA Laceration without foreign body of other part of head, initial encounter; I42.9 Cardiomyopathy, unspecified; I95.9 Hypotension, unspecified; R53.81 Other malaise; R00.0 Tachycardia, unspecified; E78.5 Hyperlipidemia, unspecified; F17.210 Nicotine dependence, cigarettes, uncomplicated; W18.39XA Other fall on same level, initial encounter; Z91.81 History of falling; Y93.89 Activity, other specified; Y92.002 Bathroom of unspecified non-institutional (private) residence as the place of occurrence of the external cause; Z68.22 Body mass index [BMI] 22.0-22.9, adult; Z79.01 Long term (current) use of anticoagulants; Z79.82 Long term (current) use of aspirin; Z79.899 Other long term (current) drug therapy; Z23 Encounter for immunization
CPT/HCPCS: 36415; 70450; 71045; 72125; 78452; 80048; 80053; 80061; 80307; 82550; 82553; 82962; 83735; 84484; 85025; 85027; 85610; 85652; 86140; 90471; 90686; 90715; 93005; 93010; 93017; 93306; 96360; 99285; A9500; G8978-GP; G8979-GP; J0280; J1644; J2785; J3490; J7030; J7512; L0120; Q9969

== ENCOUNTER 2017-09-04 19:33 | Inpatient (IN) | payer MEDICARE ==
--- NOTE | 2017-09-04 20:10 | ER Document Report ---
ED Medical Screen (RME) - General Chief Complaint: Pain All Over Stated Complaint: BODY PAIN Time Seen by Provider: 09/04/17 19:59 Mode of Arrival: Wheelchair Information source: Patient Notes: Patient is a 76-year-old male presenting to the emergency department accompanied by son complaining of general malaise onset yesterday. Son states the patient was discharged from rehab (due to a fall) yesterday and states he has not been feeling well since. Patient complains of weakness, a cough, trouble breathing and chest tightness. Patient states "I just feel bad." Patient denies fevers, nausea, vomiting, or dysuria. Patient has a life vest in place. Son states the patient has no medications after being released from rehab. GENERAL: Alert, interacts well. Appears de-conditioned. HEAD: Normocephalic, Atraumatic. NECK: Full range of motion. Supple. Trachea midline. PSYCH: Normal affect, normal mood. I have greeted and performed a rapid initial assessment of this patient. A comprehensive ED assessment and evaluation of the patient, analysis of test results and completion of the medical decision making process will be conducted by additional ED providers. TRAVEL OUTSIDE OF THE [place] IN LAST 30 DAYS: No - Related Data Allergies/Adverse Reactions: Penicillins Allergy (Verified 08/07/17 10:02) Past Medical History - Social History Chew tobacco use (# tins/day): No Frequency of alcohol use: None Drug Abuse: None - Past Medical History Cardiac Medical History: Reports: Hx Congestive Heart Failure, Hx Hypertension Renal/ Medical History: Denies: Hx Peritoneal Dialysis Musculoskeltal Medical History: Reports Hx Arthritis Skin Medical History: Reports Hx Cellulitis - Immunizations Immunizations up to date: Yes Hx Diphtheria, Pertussis, Tetanus Vaccination: Yes History of Influenza Vaccine for 03/2017 - 08/2017 Season: No Physical Exam - Vital signs Vitals: Temp Pulse Resp BP Pulse Ox 97.4 F 79 20 117/63 100 09/04/17 19:43 09/04/17 19:43 09/04/17 19:43 09/04/17 19:43 09/04/17 19:43 Course - Vital Signs Vital signs: Temp Pulse Resp BP Pulse Ox 97.4 F 79 20 117/63 100 09/04/17 19:43 09/04/17 19:43 09/04/17 19:43 09/04/17 19:43 09/04/17 19:43 Doctor's Discharge - Discharge Referrals: ARIN LEON MD [Primary Care Provider] - Follow up as needed Scribe Documentation - Scribe Written by Arnoldoe:: Elliott Schmidt, 09/04/2017 20:21 acting as scribe for :: Suhas
[2017-09-04 20:54] LABS: ABSOLUTE EOSINOPHILS # (AUTO) 0.2 10^3/uL (0.0-0.6); ABSOLUTE LYMPHOCYTES (AUTO) 1.4 10^3/uL (0.5-4.7); ABSOLUTE MONOCYTES (AUTO) 0.5 10^3/uL (0.1-1.4); ABSOLUTE NEUT (AUTO) 3.6 10^3/uL (1.7-8.2); BASOPHILS % (AUTO) 0.9 % (0-2); EOSINOPHILS % (AUTO) 3.2 % (0-6); HEMOGLOBIN 10.6 g/dL (13.5-17.0); LYMPHOCYTES % (AUTO) 24.5 % (13-45); MEAN CORPUSCULAR HEMOGLOBIN 32.2 pg (27.0-33.4); MEAN CORPUSCULAR HGB CONC 33.1 g/dL (32.0-36.0); MEAN CORPUSCULAR VOLUME 97 fl (80-97); PLATELET COUNT 238 10^3/uL (150-450); RED BLOOD COUNT 3.29 10^6/uL (4.35-5.55); RED CELL DISTRIBUTION WIDTH 14.6 % (11.5-14.0); SEGMENTED NEUTROPHILS % (AUTO) 63.4 % (42-78); TOTAL CELLS COUNTED % (AUTO) 100 %; WHITE BLOOD COUNT 5.7 10^3/uL (4.0-10.5)
--- NOTE | 2017-09-04 20:55 | EKG REPORT ---
SEVERITY:- ABNORMAL ECG - ATRIAL FLUTTER, A-RATE 254 VENTRICULAR PREMATURE COMPLEX LEFT ANTERIOR FASCICULAR BLOCK LOW VOLTAGE IN FRONTAL LEADS REPOL ABNRM SUGGESTS ISCHEMIA, ANT-LAT LEADS : Confirmed by: Kranthi Espinoza MD 04-Sep-2017 20:55:04
--- NOTE | 2017-09-04 21:02 | RADIOLOGY REPORT (SQ) ---
EXAM DESCRIPTION: CHEST PA/LAT COMPLETED DATE/TIME: 09/04/2017 8:47 pm REASON FOR STUDY: cough/congestion COMPARISON: 12/25/2016 EXAM PARAMETERS: NUMBER OF VIEWS: two views TECHNIQUE: Digital Frontal and Lateral radiographic views of the chest acquired. RADIATION DOSE: NA LIMITATIONS: Limited by overlying cardiac monitors. FINDINGS: LUNGS AND PLEURA: Underlying emphysema. Right lower lobe airspace disease. Lungs otherwi se clear. MEDIASTINUM AND HILAR STRUCTURES: No masses or contour abnormalities. HEART AND VASCULAR STRUCTURES: Heart is stable in size. No evidence for failure. BONES: No acute findings. HARDWARE: None in the chest. OTHER: No other significant finding. IMPRESSION: RIGHT LOWER LOBE AIRSPACE DISEASE SUSPICIOUS FOR PNEUMONIA. RECOMMEND FOLLOWUP RADIOGRA PHS 4 TO 6 WEEKS TO ENSURE RESOLUTION. TECHNICAL DOCUMENTATION: JOB ID: [id number] [employer]- All Rights Reserved Reading location - IP/workstation name: [email or web address]
[2017-09-04 21:20] LABS: ALANINE AMINOTRANSFERASE 26 U/L (21-72); ALBUMIN 4.2 g/dL (3.5-5.0); ALKALINE PHOSPHATASE 378 U/L (38-126); ANION GAP 11 (5-19); ASPARTATE AMINO TRANSFERASE 34 U/L (17-59); BILIRUBIN,DIRECT 0.4 mg/dL (0.0-0.4); BILIRUBIN,TOTAL 0.4 mg/dL (0.2-1.3); BLOOD UREA NITROGEN 29 mg/dL (7-20); CALCIUM 9.5 mg/dL (8.4-10.2); CARBON DIOXIDE 25 mmol/L (22-30); CHLORIDE 105 mmol/L (98-107); GLUCOSE 121 mg/dL (75-110); POTASSIUM 4.5 mmol/L (3.6-5.0); TOTAL PROTEIN 8.1 g/dL (6.3-8.2)
[2017-09-04 21:30] LABS: TROPONIN I 0.03 ng/mL
[2017-09-04 22:03] LABS: APPEARANCE,URINE SLIGHTLY-CLOUDY; BILIRUBIN,URINE NEGATIVE (NEGATIVE); COLOR,URINE YELLOW; GLUCOSE, URINE NEGATIVE (NEGATIVE); KETONES,URINE NEGATIVE (NEGATIVE); LEUKOCYTE ESTERASE,URINE LARGE (NEGATIVE); NITRITE,URINE NEGATIVE (NEGATIVE); PROTEIN,URINE NEGATIVE (NEGATIVE); URINE SPECIFIC GRAVITY 1.009
[2017-09-04] MEDS ORDERED: CEFEPIME 2 GM/D5W RTU 2 GM/50 ML RTUPB IV ONE (23:20)
[2017-09-04] MEDS ORDERED: AZITHROMYCIN 250 MG TABLET PO ONE (23:20)
[2017-09-04] MEDS ORDERED: NORMAL SALINE 1000 ML 1,000 ML IV ONE (23:21)
[2017-09-05] MEDS ORDERED: VANCOMYCIN HCL INJ 1000 MG VIAL IV ONE (00:06)
[2017-09-05] MEDS ORDERED: GUAIFENESIN SYRP 200 MG/10 ML UDC PO PRN (00:08)
[2017-09-05] MEDS ORDERED: HYDRALAZINE HCL INJ/PF 20 MG/1 ML SDV IV PRN (00:08)
[2017-09-05] MEDS ORDERED: IPRATROPIUM/ALBUTEROL 0.5-2.5 MG/3 ML AMPUL NEB PRN (00:08)
[2017-09-05] MEDS ORDERED: ACETAMINOPHEN 325 MG TABLET PO PRN (00:08)
[2017-09-05] MEDS ORDERED: CHLORPHENIRAMINE MALEATE 4 MG TABLET PO ONE (00:08)
--- NOTE | 2017-09-05 00:10 | ER Document Report ---
ED General - General Chief Complaint: Pain All Over Stated Complaint: BODY PAIN Time Seen by Provider: 09/04/17 19:59 Mode of Arrival: Wheelchair Cannot obtain history due to: Mentally challenged, Uncooperative Notes: Patient is a 76 year old male who presents with vague complaints. His main concern is that he "feels bad". He states that he has felt this way at least for a month but that it is been worse in the last 24-48 hours. Patient admits that 1 of his main concerns as he was just discharged from [facility] yesterday and does not feel that he is safe to be at home with family who is unable to care for him 24 hours a day. His grandson who lives with the patient at the bedside reports that he has noticed since coming home that the patient has had increased work of breathing that seems to be getting worse since onset. Nothing seemed to improve or worsen his symptoms from the grandsons perspective. He is uncertain whether or not he has had similar symptoms in the past although the patient does report that he has had pneumonia on 2 prior occasions and it does feel similar to when he had a pneumonia. He has not seen his primary care doctor regarding these concerns. TRAVEL OUTSIDE OF THE [place] IN LAST 30 DAYS: No - Related Data Allergies/Adverse Reactions: Penicillins Allergy (Verified 08/07/17 10:02) Past Medical History - General Information source: Patient, Relative - Social History Smoking Status: Former Smoker Chew tobacco use (# tins/day): No Frequency of alcohol use: None Drug Abuse: None Lives with: Family Family History: Reviewed & Not Pertinent, Arthritis, DM, Hyperlipidemia, Hypertension Patient has suicidal ideation: No Patient has homicidal ideation: No - Past Medical History Cardiac Medical History: Reports: Hx Congestive Heart Failure, Hx Hypertension Renal/ Medical History: Denies: Hx Peritoneal Dialysis Musculoskeltal Medical History: Reports Hx Arthritis Skin Medical History: Reports Hx Cellulitis - Immunizations Immunizations up to date: Yes Hx Diphtheria, Pertussis, Tetanus Vaccination: Yes Review of Systems - Review of Systems Notes: Constitutional: Negative for fever. HENT: Negative for sore throat. Eyes: Negative for visual changes. Cardiovascular: Negative for chest pain. Respiratory: Positive for shortness of breath. Gastrointestinal: Negative for abdominal pain, vomiting or diarrhea. Genitourinary: Negative for dysuria. Musculoskeletal: Negative for back pain. Skin: Negative for rash. Neurological: Negative for headaches, weakness or numbness. 10 point ROS negative except as marked above and in HPI. Physical Exam - Vital signs Vitals: Temp Pulse Resp BP Pulse Ox 97.4 F 79 20 117/63 100 09/04/17 19:43 09/04/17 19:43 09/04/17 19:43 09/04/17 19:43 09/04/17 19:43 Interpretation: Normal Notes: PHYSICAL EXAMINATION: GENERAL: Chronically ill but in no acute distress HEAD: Atraumatic, normocephalic. EYES: Pupils equal round and reactive to light, extraocular movements intact, sclera anicteric, conjunctiva are normal. ENT: nares patent, oropharynx clear without exudates. Moderately dry mucous membranes. NECK: Normal range of motion, supple without lymphadenopathy LUNGS: Mildly diminished breath sounds at the right base. No tachypnea or distress HEART: Regular rate and rhythm without, 3 out of 6 systolic ejection murmur ABDOMEN: Soft, nontender, normoactive bowel sounds. No guarding, no rebound. No masses appreciated. EXTREMITIES: no pitting or edema. No cyanosis. NEUROLOGICAL: No focal neurological deficits. Moves all extremities spontaneously and on command. PSYCH: Normal mood, normal affect. SKIN: Warm, Dry, normal turgor, no rashes or lesions noted. Course - Re-evaluation Re-evalutation: 09/05/17 00:08 Patient presents with Adebayo complaints of generalized pain although family does specify complaint the patient breathing more heavily and coughing more over the last several days. Patient was just discharged from an inpatient nursing facility yesterday. Physical examination shows general deconditioning and muscle wasting, mildly diminished breath sounds at the right base, moderate tachypnea but otherwise unremarkable. Laboratories do demonstrate findings consistent with an acute urinary tract infection. His chest x-ray does demonstrate a right lower lobe pneumonia. Patient will require coverage for hospital-acquired pneumonia given his recent inpatient stay in a nursing facility. He has been started on cefepime, vancomycin, and azithromycin. I have discussed with the hospitalist for admission. - Vital Signs Vital signs: Temp Pulse Resp BP Pulse Ox 97.4 F 79 18 113/72 98 09/04/17 19:43 09/04/17 19:43 09/05/17 02:01 09/05/17 02:01 09/05/17 02:01 - Laboratory Result Diagrams: 09/04/17 20:45 09/04/17 20:45 Laboratory results interpreted by me: 09/04/17 09/04/17 09/04/17 20:45 20:45 20:45 RBC 3.29 L Hgb 10.6 L Hct 32.0 L RDW 14.6 H BUN 29 H Glucose 121 H Alkaline Phosphatase 378 H NT-Pro-B Natriuret Pep 2640 H Urine Urobilinogen Ur Leukocyte Esterase 09/04/17 21:43 RBC Hgb Hct RDW BUN Glucose Alkaline Phosphatase NT-Pro-B Natriuret Pep Urine Urobilinogen 2.0 H Ur Leukocyte Esterase LARGE H - Diagnostic Test Radiology reviewed: Image reviewed, Reports reviewed Radiology results interpreted by me: 09/05/17 03:35 Chest x-ray: Right lower lobe pneumonia - EKG Interpretation by Me Additional EKG results interpreted by me: 09/05/17 03:35 A flutter. Rate 108. No ST elevations or depressions. QTC is 429. Discharge - Discharge Clinical Impression: Right lower lobe pneumonia Qualifiers: Pneumonia type: due to unspecified organism Qualified Code(s): J18.1 - Lobar pneumonia, unspecified organism Urinary tract infection Qualifiers: Urinary tract infection type: acute pyelonephritis Qualified Code(s): N10 - Acute pyelonephritis Condition: Fair Disposition: ADMITTED INPATIENT Admitting Provider: Esteban[facility] Admitted: Telemetry
[2017-09-05] MEDS ORDERED: VANCOMYCIN HCL 0 MG in DEXTROSE 5%-WATER 250 ML IV NR (00:15)
[2017-09-05] MEDS ORDERED: FLUTICASONE NASAL SPRAY 50 MCG/SPRY 120 SPRAY/16 GM NASL ONE (00:45)
[2017-09-05] MEDS ORDERED: CHLORPHENIRAMINE MALEATE 4 MG TABLET ONE (01:57)
[2017-09-05] MEDS ORDERED: FLUTICASONE NASAL SPRAY 50 MCG/SPRY 120 SPRAY/16 GM ONE (01:57)
[2017-09-05] MEDS: IPRATROPIUM/ALBUTEROL 0.5-2.5 MG/3 ML AMPUL NEB SCH ×4 (03:01→20:03)
[2017-09-05] MEDS: HEPARIN SOD (PORCINE) 5,000 UNIT/ML 1 ML SYRINGE SUBCUT SCH ×3 (06:08→21:45)
[2017-09-05 07:13] LABS: ABSOLUTE BASOPHILS # (AUTO) 0.1 10^3/uL (0.0-0.2); ABSOLUTE EOSINOPHILS # (AUTO) 0.2 10^3/uL (0.0-0.6); ABSOLUTE LYMPHOCYTES (AUTO) 1.2 10^3/uL (0.5-4.7); ABSOLUTE MONOCYTES (AUTO) 0.5 10^3/uL (0.1-1.4); ABSOLUTE NEUT (AUTO) 3.6 10^3/uL (1.7-8.2); BASOPHILS % (AUTO) 1.4 % (0-2); HEMATOCRIT 27.8 % (37.9-51.0); HEMOGLOBIN 9.2 g/dL (13.5-17.0); LYMPHOCYTES % (AUTO) 22.3 % (13-45); MEAN CORPUSCULAR HGB CONC 32.9 g/dL (32.0-36.0); MEAN CORPUSCULAR VOLUME 97 fl (80-97); MONOCYTES % (AUTO) 8.4 % (3-13); PLATELET COUNT 186 10^3/uL (150-450); RED BLOOD COUNT 2.86 10^6/uL (4.35-5.55); RED CELL DISTRIBUTION WIDTH 14.8 % (11.5-14.0); SEGMENTED NEUTROPHILS % (AUTO) 64.9 % (42-78); TOTAL CELLS COUNTED % (AUTO) 100 %; WHITE BLOOD COUNT 5.6 10^3/uL (4.0-10.5)
[2017-09-05 07:49] LABS: ANION GAP 9 (5-19); BLOOD UREA NITROGEN 27 mg/dL (7-20); CARBON DIOXIDE 23 mmol/L (22-30); CHLORIDE 108 mmol/L (98-107); GLUCOSE 89 mg/dL (75-110); POTASSIUM 4.3 mmol/L (3.6-5.0); SODIUM 139.6 mmol/L (137-145)
--- NOTE | 2017-09-05 07:50 | PDOC H&P ---
History of Present Illness Admission Date/PCP: 09/05/17 00:27 ARIN LEON MD Patient complains of: Diffuse body aches and shortness of breath History of Present Illness: KATT HERNÁNDEZ JR is a 76 year old male with a past medical history of congestive heart failure with an ejection fraction of 20% requiring a LifeVest, COPD and chronic debility. Patient presents with 3 days of fatigue, subjective fever and shortness of breath prompting evaluation emergency room where he is found to have a right lower lobe infiltrate, urinary tract infection and congestive heart failure exacerbation. He is ordered empiric antibiotics and referred to the hospitalist for admission. He is comfortable lying flat, afebrile without leukocytosis. He denies recent antibiotics, pneumonia or urinary tract infection. Past Medical History Cardiac Medical History: Reports: Congestive Heart Failure, Hypertension Pulmonary Medical History: Reports: Bronchitis, Chronic Obstructive Pulmonary Disease (COPD) Musculoskeltal Medical History: Reports: Arthritis Social History Information Source: Patient, [facility] Records Lives with: Family Smoking Status: Former Smoker Frequency of Alcohol Use: Occasional Hx Recreational Drug Use: No Drugs: None Hx Prescription Drug Abuse: No - Advance Directive Resuscitation Status: Full Code Family History Family History: Reviewed & Not Pertinent, Arthritis, DM, Hyperlipidemia, Hypertension Parental Family History Reviewed: Yes Children Family History Reviewed: Yes Sibling(s) Family History Reviewed.: Yes Medication/Allergy Home Medications: No Home Medications 09/04/17 Allergies/Adverse Reactions: Penicillins Allergy (Verified 08/07/17 10:02) Review of Systems Constitutional: ABSENT: chills, fever(s), headache(s), weight gain, weight loss Eyes: ABSENT: visual disturbances Ears: ABSENT: hearing changes Cardiovascular: ABSENT: chest pain, dyspnea on exertion, edema, orthropnea, palpitations Respiratory: ABSENT: cough, hemoptysis Gastrointestinal: ABSENT: abdominal pain, constipation, diarrhea, hematemesis, hematochezia, nausea, vomiting Genitourinary: ABSENT: dysuria, hematuria Musculoskeletal: ABSENT: joint swelling Integumentary: ABSENT: rash, wounds Neurological: ABSENT: abnormal gait, abnormal speech, confusion, dizziness, focal weakness, syncope Psychiatric: ABSENT: anxiety, depression, homidical ideation, suicidal ideation Endocrine: ABSENT: cold intolerance, heat intolerance, polydipsia, polyuria Hematologic/Lymphatic: ABSENT: easy bleeding, easy bruising Physical Exam Vital Signs: Temp Pulse Resp BP Pulse Ox 97.4 F 79 19 123/74 100 09/04/17 19:43 09/04/17 19:43 09/05/17 05:01 09/05/17 05:01 09/05/17 05:01 General appearance: PRESENT: mild distress, thin, other - Chronically ill- appearing with temporal wasting and cachexia Head exam: PRESENT: atraumatic, normocephalic Eye exam: PRESENT: conjunctiva pink, EOMI, PERRLA. ABSENT: scleral icterus Ear exam: PRESENT: normal external ear exam Mouth exam: PRESENT: moist, tongue midline Neck exam: ABSENT: carotid bruit, JVD, lymphadenopathy, thyromegaly Respiratory exam: PRESENT: accessory muscle use, crackles, prolonged expiratory phas, retraction, rhonchi, symmetrical. ABSENT: chest wall tenderness, rales, wheezes Cardiovascular exam: PRESENT: RRR, +S1, +S2, systolic murmur Pulses: PRESENT: normal dorsalis pedis pul Vascular exam: PRESENT: normal capillary refill GI/Abdominal exam: PRESENT: normal bowel sounds, soft. ABSENT: distended, guarding, mass, organolmegaly, rebound, tenderness Rectal exam: PRESENT: deferred Extremities exam: PRESENT: full ROM. ABSENT: calf tenderness, clubbing, pedal edema Neurological exam: PRESENT: alert, awake, oriented to person, oriented to place , oriented to time, oriented to situation, CN II-XII grossly intact. ABSENT: motor sensory deficit Psychiatric exam: PRESENT: appropriate affect, normal mood. ABSENT: homicidal ideation, suicidal ideation Skin exam: PRESENT: dry, intact, warm. ABSENT: cyanosis, rash Results Laboratory Results: 09/05/17 07:00 09/05/17 07:00 WBC 5.6 RBC 2.86 L Hgb 9.2 L Hct 27.8 L MCV 97 MCH 32.0 MCHC 32.9 RDW 14.8 H Plt Count 186 Seg Neutrophils % 64.9 Lymphocytes % 22.3 Monocytes % 8.4 Eosinophils % 3.0 Basophils % 1.4 Absolute Neutrophils 3.6 Absolute Lymphocytes 1.2 Absolute Monocytes 0.5 Absolute Eosinophils 0.2 Absolute Basophils 0.1 Impressions: Chest X-Ray 09/04/17 20:06 IMPRESSION: RIGHT LOWER LOBE AIRSPACE DISEASE SUSPICIOUS FOR PNEUMONIA. RECOMMEND FOLLOWUP RADIOGRAPHS 4 TO 6 WEEKS TO ENSURE RESOLUTION. Assessment & Plan - Diagnosis (1) Right lower lobe pneumonia Qualifiers: Pneumonia type: due to unspecified organism Qualified Code(s): J18.1 - Lobar pneumonia, unspecified organism Is this a current diagnosis for this admission?: Yes Plan: Pneumonia care set, empiric antibiotics, albuterol and Atrovent, chlorpheniramine and Flonase. Incentive spirometry and flutter valve follow-up CBC and blood culture (2) Urinary tract infection Qualifiers: Urinary tract infection type: acute pyelonephritis Qualified Code(s): N10 - Acute pyelonephritis Is this a current diagnosis for this admission?: Yes Plan: Empiric antibiotics, follow-up urine culture and CBC (3) Atrial fibrillation and flutter Is this a current diagnosis for this admission?: Yes Plan: Rate controlled continue outpatient regiment (4) Cardiomyopathy Qualifiers: Is this a current diagnosis for this admission?: Yes Plan: Appears compensated lying flat however elevated BNP appears chronic at 2000. Recent stress test of July 2017 is negative for scar or reversible ischemia. Continue LifeVest use. (5) Debility Is this a current diagnosis for this admission?: Yes Plan: Consider physical therapy evaluation. - Time Time Spent: 50 to 70 Minutes - Inpatient Certification Medical Necessity: Need Close Monitoring Due to Risk of Patient Decompensation
--- NOTE | 2017-09-05 09:29 | PROGRESS NOTE E ---
Progress Note NAME: KATT HERNÁNDEZ : 1940 AGE: 76Y DATE: 09/05/2017 ROOM: ED21 SUBJECTIVE: The patient is a 76-year-old male, who has a past medical history of congestive heart failure, ejection fraction of 20%, requiring life vest. The patient admits to shortness of breath and he was found to have right lower lobe pneumonia, was started on antibiotics. Feeling better. OBJECTIVE: GENERAL: Patient is lying in bed comfortable, not in distress. VITAL SIGNS: Temperature, afebrile. Heart rate 80, blood pressure 123/74, respiratory 16, saturation 95%. HEENT: Head normocephalic, atraumatic. Pupils round, reactive to light and accommodation bilaterally. Extraocular movements intact. Ears: Tympanic membranes intact bilaterally. No discharge from the ears. No discharge from the nose. NECK: Supple. No increased JVD. No thyromegaly. No lymphadenopathy. CARDIOVASCULAR: Normal S1, S2. Regular rate and rhythm. No murmur. RESPIRATORY: Bilateral crackles. ABDOMEN: Soft and nontender. MUSCULOSKELETAL: No edema. NEUROLOGIC: Awake, alert. SKIN: No rash. LABORATORY: White blood count 5.6, hemoglobin 9.2. Sodium 139, potassium 4.3, chloride 108, creatinine 1.0. ASSESSMENT: 1. RIGHT LOWER LOBE PNEUMONIA. Continue antibiotics. 2. CONGESTIVE HEART FAILURE WITH EJECTION FRACTION OF LESS THAN 20. 3. URINARY TRACT INFECTION. 4. DEBILITY. PLAN: 1. Continue antibiotics. The patient is on cefepime, vancomycin. 2. Laboratory tomorrow morning. 3. Continue his home medications. MEDICAL NECESSITY: The patient needs to stay for monitoring of pneumonia and IV antibiotics. DICTATING PHYSICIAN: CARISSA DOUGLAS M.D. [id number] PHY#: [id number] ID: [id number] JOB#: [id number] ACCT: [id number] cc: >
[2017-09-05] MEDS: FLUTICASONE NASAL SPRAY 50 MCG/SPRY 120 SPRAY/16 GM NASL SCH ×2 (10:32→21:45)
[2017-09-05] MEDS: CEFEPIME 1 GM/D5W RTU 1 GM/50 ML RTUPB IV SCH ×2 (10:34→21:46)
[2017-09-05] MEDS: VANCOMYCIN HCL 750 MG in DEXTROSE 5%-WATER 250 ML IV SCH ×2 (12:42→23:36)
[2017-09-05] MEDS ORDERED: CEFEPIME 1 GM/D5W RTU 1 GM/50 ML RTUPB IV ONE (21:11)
[2017-09-06] MEDS: IPRATROPIUM/ALBUTEROL 0.5-2.5 MG/3 ML AMPUL NEB SCH ×4 (02:17→20:39)
[2017-09-06 04:57] LABS: ABSOLUTE EOSINOPHILS # (AUTO) 0.2 10^3/uL (0.0-0.6); ABSOLUTE LYMPHOCYTES (AUTO) 1.3 10^3/uL (0.5-4.7); ABSOLUTE MONOCYTES (AUTO) 0.5 10^3/uL (0.1-1.4); ABSOLUTE NEUT (AUTO) 3.3 10^3/uL (1.7-8.2); BASOPHILS % (AUTO) 0.7 % (0-2); EOSINOPHILS % (AUTO) 3.1 % (0-6); HEMATOCRIT 28.6 % (37.9-51.0); HEMOGLOBIN 9.6 g/dL (13.5-17.0); MEAN CORPUSCULAR HEMOGLOBIN 32.1 pg (27.0-33.4); MEAN CORPUSCULAR HGB CONC 33.5 g/dL (32.0-36.0); MEAN CORPUSCULAR VOLUME 96 fl (80-97); MONOCYTES % (AUTO) 8.8 % (3-13); PLATELET COUNT 171 10^3/uL (150-450); RED BLOOD COUNT 2.98 10^6/uL (4.35-5.55); RED CELL DISTRIBUTION WIDTH 14.7 % (11.5-14.0); SEGMENTED NEUTROPHILS % (AUTO) 63.4 % (42-78); TOTAL CELLS COUNTED % (AUTO) 100 %; WHITE BLOOD COUNT 5.2 10^3/uL (4.0-10.5)
[2017-09-06 05:19] LABS: ANION GAP 12 (5-19); BLOOD UREA NITROGEN 22 mg/dL (7-20); CARBON DIOXIDE 21 mmol/L (22-30); CHLORIDE 107 mmol/L (98-107); GLUCOSE 92 mg/dL (75-110); SODIUM 139.9 mmol/L (137-145)
[2017-09-06] MEDS: HEPARIN SOD (PORCINE) 5,000 UNIT/ML 1 ML SYRINGE SUBCUT SCH ×3 (05:58→22:17)
[2017-09-06] MEDS ORDERED: SACUBITRIL/VALSARTAN 24 MG/26 MG TABLET PO SCH (10:00)
--- NOTE | 2017-09-06 10:19 | PROGRESS NOTE E ---
Progress Note NAME: KATT HERNÁNDEZ : 1940 AGE: 76Y DATE: 09/06/2017 ROOM: 406 SUBJECTIVE: The patient is a 76-year-old male with history of multiple medical problems including atrial fibrillation, cardiomyopathy with ejection of 25-30, dyslipidemia, nonsustained V-tach in the past, protein calorie malnutrition. The patient was in the hospital in July. At that time was admitted atrial fibrillation and he was supposed to be discharged on Eliquis, Entresto, aspirin, Lipitor, but the patient is not taking any medication at home. He was admitted this time yesterday with left lower lobe pneumonia, started on vancomycin and cefepime. Today, he is feeling better. There were no overnight events. OBJECTIVE: GENERAL: The patient is lying in bed, comfortable, not in distress. VITAL SIGNS: Temperature 97.8, heart rate is 86, blood pressure is 101/57. HEENT: Normocephalic, atraumatic. Pupils are round, reactive to light and accommodation bilaterally. Extraocular movements intact. Ears: Tympanic membranes intact bilaterally. No discharge from the ears. No discharge from the nose. NECK: Supple. No increased JVD. No thyromegaly. No lymphadenopathy. CARDIOVASCULAR: Normal S1 and S2. Regular rate and rhythm. No murmur. No gallop. RESPIRATORY: Few bilateral crackles at lung base. No wheezing. ABDOMEN: Soft and nontender. MUSCULOSKELETAL: No edema. NEUROLOGIC: Awake, alert. SKIN: No rash. LABORATORY: Sodium 139, potassium 4.0. White blood count 5.2, hemoglobin 9.6, hematocrit 28.6. ASSESSMENT: 1. RIGHT LOWER LOBE PNEUMONIA. Continue vancomycin and cefepime. 2. CONGESTIVE HEART FAILURE WITH EJECTION FRACTION OF 25-30, NOT ON ANY TREATMENT. He had Life Vest. 3. URINARY TRACT INFECTION. Continue antibiotic. 4. DEBILITY. 5. ATRIAL FIBRILLATION WITH RAPID VENTRICULAR RESPONSE,now rate controlled. PLAN: 1. Continue antibiotics with vancomycin and cefepime. 2. Last admission the patient was discharged on Eliquis, Coreg 6.25 mg twice a day, Lipitor, aspirin and Entresto ; however the patient did not take any of these medications. We are going to resume all these medications today. 3. case planner to help with assistance for his medications. Possible discharge in 2-3 days. MEDICAL NECESSITY: The patient needs IV antibiotics. DICTATING PHYSICIAN: CARISAS DOUGLAS M.D. [id number] Kelsy#: [id number] ID: [id number] JOB#: [id number] ACCT: [id number] cc: >
[2017-09-06] MEDS: FLUTICASONE NASAL SPRAY 50 MCG/SPRY 120 SPRAY/16 GM NASL SCH ×2 (10:53→22:18)
[2017-09-06] MEDS: CARVEDILOL 3.125 MG TABLET PO SCH ×2 (10:53→22:19)
[2017-09-06] MEDS: CEFEPIME 1 GM/D5W RTU 1 GM/50 ML RTUPB IV SCH ×2 (10:53→22:19)
[2017-09-06] MEDS: APIXABAN 5 MG TABLET PO SCH ×2 (10:54→17:39)
[2017-09-06] MEDS: VANCOMYCIN HCL 750 MG in DEXTROSE 5%-WATER 250 ML IV SCH (12:58)
[2017-09-06] MEDS: ASPIRIN 81 MG TABLET, CHEWABLE PO SCH (22:17)
[2017-09-06] MEDS: ATORVASTATIN CALCIUM 20 MG TABLET PO SCH (22:17)
[2017-09-07] MEDS: VANCOMYCIN HCL 750 MG in DEXTROSE 5%-WATER 250 ML IV SCH ×2 (00:28→14:11)
[2017-09-07 00:43] LABS: VANCOMYCIN,TROUGH 15.1 ug/mL (5.0-20.0)
[2017-09-07] MEDS: IPRATROPIUM/ALBUTEROL 0.5-2.5 MG/3 ML AMPUL NEB SCH ×4 (02:05→19:44)
[2017-09-07] MEDS: HEPARIN SOD (PORCINE) 5,000 UNIT/ML 1 ML SYRINGE SUBCUT SCH ×3 (06:02→21:49)
[2017-09-07] MEDS: FLUTICASONE NASAL SPRAY 50 MCG/SPRY 120 SPRAY/16 GM NASL SCH ×2 (10:26→21:55)
[2017-09-07] MEDS: SACUBITRIL/VALSARTAN 24 MG/26 MG TABLET PO SCH (10:26)
[2017-09-07] MEDS: APIXABAN 5 MG TABLET PO SCH ×2 (10:26→18:25)
[2017-09-07] MEDS: CEFEPIME 1 GM/D5W RTU 1 GM/50 ML RTUPB IV SCH ×2 (10:26→21:48)
[2017-09-07] MEDS: CARVEDILOL 3.125 MG TABLET PO SCH ×2 (10:26→21:48)
--- NOTE | 2017-09-07 17:48 | PDOC PROGRESS REPORT ---
Subjective Progress Note for:: 09/07/17 Subjective:: KATT HERNÁNDEZ JR is a 76 year old male admitted for left lower lobe pneumonia. Past medical history includes cardiomyopathy with EF of 25-30%, HLD , atrial fibrillation, nonsustained V. tach. Of note, the patient was admitted to the hospital 1 month ago for atrial fibrillation, he was discharged with prescriptions for Eliquis, and trazodone, aspirin, and Lipitor but the patient did not fill his prescriptions. Patient seen this morning on rounds, he complains of bilateral shoulder stiffness. The patient denies chest pain, shortness of breath, cough, wheezing , or fatigue. The patient is resting comfortably in bed on room air eating his breakfast. Reason For Visit: COPD EXACERBATION, CHF EXACERBATION,UTI A PNEUMONI Physical Exam Vital Signs: Temp Pulse Resp BP Pulse Ox 99.3 F 89 16 91/56 L 95 09/07/17 11:47 09/07/17 13:52 09/07/17 13:52 09/07/17 11:47 09/07/17 13:52 Intake & Output 09/06/17 09/07/17 09/08/17 06:59 06:59 06:59 Intake Total 885 1450 Output Total 400 Balance 885 1050 Weight 70.2 kg 70.2 kg General appearance: PRESENT: no acute distress Head exam: PRESENT: atraumatic Eye exam: PRESENT: conjunctiva pink Mouth exam: PRESENT: moist Teeth exam: PRESENT: poor dentation Neck exam: PRESENT: full ROM Respiratory exam: PRESENT: clear to auscultation rosita, symmetrical, unlabored Cardiovascular exam: PRESENT: +S1, +S2 Pulses: PRESENT: normal radial pulses, normal dorsalis pedis pul GI/Abdominal exam: PRESENT: normal bowel sounds, soft Rectal exam: PRESENT: deferred Extremities exam: PRESENT: full ROM Musculoskeletal exam: PRESENT: full ROM Neurological exam: PRESENT: alert, awake, oriented to person, oriented to place , oriented to time, oriented to situation Psychiatric exam: PRESENT: appropriate affect Skin exam: PRESENT: normal color Results Laboratory Results: 09/06/17 04:32 09/06/17 23:55 09/06/17 23:55 Creatinine 1.08 Est GFR ( Amer) > 60 Est GFR (Non-Af Amer) > 60 Impressions: Chest X-Ray 03/16/18 20:06 IMPRESSION: RIGHT LOWER LOBE AIRSPACE DISEASE SUSPICIOUS FOR PNEUMONIA. RECOMMEND FOLLOWUP RADIOGRAPHS 4 TO 6 WEEKS TO ENSURE RESOLUTION. Assessment & Plan - Diagnosis (1) Right lower lobe pneumonia Qualifiers: Pneumonia type: due to unspecified organism Qualified Code(s): J18.1 - Lobar pneumonia, unspecified organism Is this a current diagnosis for this admission?: Yes Plan: Given the patient's recent hospital admission, treat for healthcare associated pneumonia. Appropriately treated with with Vancomycin and Cefepime, currently on day 2 of therapy. Will continue antibiotic therapy for 1 more week. Patient remains afebrile and WBC within normal range. Barring any complications, likely discharge home tomorrow. (2) Atrial fibrillation Qualifiers: Atrial fibrillation type: chronic Qualified Code(s): I48.2 - Chronic atrial fibrillation Is this a current diagnosis for this admission?: Yes Plan: Rate controlled. EKG shows atrial fibrillation, T-wave abnormalities in the anterior lateral leads. Questionable for ischemia. No signs of acute infarction. Patient was admitted for A. fib last month and was discharged on Eliquis, Coreg, Lipitor, aspirin, and Entresto. The patient never filled his prescriptions when he was discharged. Resumed all of these medications yesterday , patient is tolerating them well. Appreciate maintenance planner assistance in helping the patient fill his medications once discharged from [facility]. (3) CHF (congestive heart failure) Qualifiers: Heart failure type: unspecified Heart failure chronicity: chronic Qualified Code(s): I50.9 - Heart failure, unspecified Is this a current diagnosis for this admission?: Yes Plan: Plan as above. Patient has no complaints of chest pain or SOB. Continue statin, anti-hypertensives, ASA. - Time Time Spent with patient: 15-24 minutes Medications reviewed and adjusted accordingly: Yes Anticipated discharge: Home Within: within 24 hours, within 48 hours - Inpatient Certification Based on my medical assessment, after consideration of the patient's comorbidities, presenting symptoms, or acuity I expect that the services needed warrant INPATIENT care.: Yes I certify that my determination is in accordance with my understanding of Medicare's requirements for reasonable and necessary INPATIENT services [42 CFR 412.3e].: Yes Medical Necessity: Risk of Complication if Not Cared For in Hospital - Plan Summary Plan Summary: Plan to discharge home within 24-48 hours
[2017-09-07] MEDS: ASPIRIN 81 MG TABLET, CHEWABLE PO SCH (21:48)
[2017-09-07] MEDS: ATORVASTATIN CALCIUM 20 MG TABLET PO SCH (21:48)
[2017-09-08] MEDS: VANCOMYCIN HCL 750 MG in DEXTROSE 5%-WATER 250 ML IV SCH ×3 (00:19→23:50)
[2017-09-08] MEDS: IPRATROPIUM/ALBUTEROL 0.5-2.5 MG/3 ML AMPUL NEB SCH ×4 (02:18→19:53)
[2017-09-08] MEDS: HEPARIN SOD (PORCINE) 5,000 UNIT/ML 1 ML SYRINGE SUBCUT SCH ×3 (05:46→22:49)
[2017-09-08] MEDS: SACUBITRIL/VALSARTAN 24 MG/26 MG TABLET PO SCH (10:23)
[2017-09-08] MEDS: APIXABAN 5 MG TABLET PO SCH ×2 (10:23→17:27)
[2017-09-08] MEDS: CEFEPIME 1 GM/D5W RTU 1 GM/50 ML RTUPB IV SCH ×2 (10:24→22:49)
[2017-09-08] MEDS: CARVEDILOL 3.125 MG TABLET PO SCH ×2 (10:24→22:49)
[2017-09-08] MEDS: FLUTICASONE NASAL SPRAY 50 MCG/SPRY 120 SPRAY/16 GM NASL SCH ×2 (10:26→22:50)
--- NOTE | 2017-09-08 18:39 | PDOC PROGRESS REPORT ---
Subjective Progress Note for:: 09/08/17 Subjective:: KATT HERNÁNDEZ JR is a 76 year old male admitted for left lower lobe pneumonia. Past medical history includes cardiomyopathy with EF of 25-30%, HLD , atrial fibrillation, nonsustained V. tach. Of note, the patient was admitted to the hospital 1 month ago for atrial fibrillation, he was discharged with prescriptions for Eliquis, and trazodone, aspirin, and Lipitor but the patient did not fill his prescriptions. Patient seen this morning on rounds, he is awake sitting up in bed eating his breakfast with the assistance of nurses a. The patient denies chest pain, shortness of breath, cough, wheezing, or fatigue. Reason For Visit: COPD EXACERBATION, CHF EXACERBATION,UTI A PNEUMONI Physical Exam Vital Signs: Temp Pulse Resp BP Pulse Ox 98.8 F 86 17 96/64 L 93 09/08/17 11:43 09/08/17 14:00 09/08/17 11:43 09/08/17 11:43 09/08/17 11:43 Intake & Output 09/07/17 09/08/17 09/09/17 06:59 06:59 06:59 Intake Total 1450 1864 Output Total 400 425 Balance 1050 1439 Weight 70.2 kg 74.3 kg General appearance: PRESENT: no acute distress Head exam: PRESENT: atraumatic Eye exam: PRESENT: conjunctiva pink Mouth exam: PRESENT: moist Teeth exam: PRESENT: poor dentation Respiratory exam: PRESENT: clear to auscultation rosita, symmetrical, unlabored Cardiovascular exam: PRESENT: +S1, +S2 Pulses: PRESENT: normal radial pulses, +1 pedal pulses bilateral GI/Abdominal exam: PRESENT: normal bowel sounds, soft Rectal exam: PRESENT: deferred Gentrourinary exam: PRESENT: other - Patient is able to using urinal, but according to nursing staff he is oftentimes incontinent Extremities exam: PRESENT: other - 3/5 weakness in all extremities. Very poor fine motor control with both hands. The patient requires assistance with eating and toileting Musculoskeletal exam: ABSENT: ambulatory Neurological exam: PRESENT: alert, awake, oriented to person, oriented to place , oriented to time, oriented to situation Psychiatric exam: PRESENT: appropriate affect Results Laboratory Results: 09/06/17 04:32 09/06/17 23:55 Impressions: Chest X-Ray 09/04/17 20:06 IMPRESSION: RIGHT LOWER LOBE AIRSPACE DISEASE SUSPICIOUS FOR PNEUMONIA. RECOMMEND FOLLOWUP RADIOGRAPHS 4 TO 6 WEEKS TO ENSURE RESOLUTION. Status: Imported from PACS Assessment & Plan - Diagnosis (1) Right lower lobe pneumonia Qualifiers: Pneumonia type: due to unspecified organism Qualified Code(s): J18.1 - Lobar pneumonia, unspecified organism Is this a current diagnosis for this admission?: Yes Plan: Given the patient's recent hospital admission, treat for healthcare associated pneumonia. Appropriately treated with with Vancomycin and Cefepime, currently on day 2 of therapy. Will continue antibiotic therapy for 1 more week. Patient remains afebrile and WBC within normal range. (2) Atrial fibrillation Qualifiers: Atrial fibrillation type: chronic Qualified Code(s): I48.2 - Chronic atrial fibrillation Is this a current diagnosis for this admission?: Yes Plan: Rate controlled. EKG shows atrial fibrillation, T-wave abnormalities in the anterior lateral leads. Questionable for ischemia. No signs of acute infarction. Patient was admitted for A. fib last month and was discharged on Eliquis, Coreg , Lipitor, aspirin, and Entresto. The patient never filled his prescriptions when he was discharged. Continue all of these medications, patient is tolerating them well. Appreciate digital media planner assistance in helping the patient fill his medications once discharged from [facility]. (3) CHF (congestive heart failure) Qualifiers: Heart failure type: unspecified Heart failure chronicity: chronic Qualified Code(s): I50.9 - Heart failure, unspecified Is this a current diagnosis for this admission?: Yes Plan: Plan as above. Patient has no complaints of chest pain or SOB. Continue statin, anti-hypertensives, ASA. (4) Weakness Is this a current diagnosis for this admission?: Yes Plan: 3/5 strength in all 4 extremities. Very poor fine motor control in both hands. Patient is unable to feed himself or dress himself. Discussed the possibility of sending the patient to acute rehab following discharge from [facility]. The patient seemed amenable to this idea. The patient agrees that he is to weak to care for himself, and he lacks social support at home. Discharge planning aware, appreciate their assistance in finding placement - Time Time Spent with patient: 15-24 minutes Anticipated discharge: Home - Inpatient Certification Based on my medical assessment, after consideration of the patient's comorbidities, presenting symptoms, or acuity I expect that the services needed warrant INPATIENT care.: Yes I certify that my determination is in accordance with my understanding of Medicare's requirements for reasonable and necessary INPATIENT services [42 CFR 412.3e].: Yes Medical Necessity: Risk of Complication if Not Cared For in Hospital - Plan Summary Plan Summary: Plan is to discharge the patient to acute rehab.
[2017-09-08] MEDS: ASPIRIN 81 MG TABLET, CHEWABLE PO SCH (22:49)
[2017-09-08] MEDS: ATORVASTATIN CALCIUM 20 MG TABLET PO SCH (22:49)
[2017-09-09] MEDS: IPRATROPIUM/ALBUTEROL 0.5-2.5 MG/3 ML AMPUL NEB SCH ×4 (01:47→20:04)
[2017-09-09] MEDS: HEPARIN SOD (PORCINE) 5,000 UNIT/ML 1 ML SYRINGE SUBCUT SCH ×3 (06:51→21:35)
[2017-09-09] MEDS: APIXABAN 5 MG TABLET PO SCH ×2 (10:59→18:05)
[2017-09-09] MEDS: CARVEDILOL 3.125 MG TABLET PO SCH ×2 (10:59→21:35)
[2017-09-09] MEDS: SACUBITRIL/VALSARTAN 24 MG/26 MG TABLET PO SCH (11:00)
[2017-09-09] MEDS: CEFEPIME 1 GM/D5W RTU 1 GM/50 ML RTUPB IV SCH ×2 (11:00→21:35)
[2017-09-09] MEDS: FLUTICASONE NASAL SPRAY 50 MCG/SPRY 120 SPRAY/16 GM NASL SCH ×2 (11:01→21:35)
[2017-09-09] MEDS: VANCOMYCIN HCL 750 MG in DEXTROSE 5%-WATER 250 ML IV SCH ×2 (12:22→23:12)
--- NOTE | 2017-09-09 17:06 | PDOC PROGRESS REPORT ---
Subjective Progress Note for:: 09/09/17 Subjective:: KATT HERNÁNDEZ JR is a 76 year old male admitted for left lower lobe pneumonia. Past medical history includes cardiomyopathy with EF of 25-30%, HLD , atrial fibrillation, nonsustained V. tach. Of note, the patient was admitted to the hospital 1 month ago for atrial fibrillation, he was discharged with prescriptions for Eliquis, and trazodone, aspirin, and Lipitor but the patient did not fill his prescriptions. Patient seen this morning on rounds, he is awake sitting up in bed. The patient has no complaints. The patient denies chest pain, shortness of breath, cough, wheezing, or fatigue. Reason For Visit: COPD EXACERBATION, CHF EXACERBATION,UTI A PNEUMONI Physical Exam Vital Signs: Temp Pulse Resp BP Pulse Ox 98.1 F 59 L 18 117/57 L 100 09/09/17 11:44 09/09/17 13:16 09/09/17 13:16 09/09/17 11:44 09/09/17 16:20 Intake & Output 09/08/17 09/09/17 09/10/17 06:59 06:59 06:59 Intake Total 1864 1442 Output Total 425 Balance 1439 1442 Weight 74.3 kg 68.9 kg General appearance: PRESENT: no acute distress Head exam: PRESENT: atraumatic Eye exam: PRESENT: conjunctiva pink Mouth exam: PRESENT: moist Teeth exam: PRESENT: poor dentation Neck exam: PRESENT: full ROM - gross motor movement. poor fine motor control. requires assistance with feeding and dresssing himself. Respiratory exam: PRESENT: accessory muscle use, symmetrical, unlabored Cardiovascular exam: PRESENT: +S1, +S2 Pulses: PRESENT: normal radial pulses, normal dorsalis pedis pul Vascular exam: PRESENT: normal capillary refill GI/Abdominal exam: PRESENT: normal bowel sounds, soft Rectal exam: PRESENT: deferred Extremities exam: PRESENT: full ROM Neurological exam: PRESENT: alert, awake, oriented to person, oriented to place , oriented to time, oriented to situation Psychiatric exam: PRESENT: appropriate affect Results Laboratory Results: 09/06/17 04:32 09/06/17 23:55 Impressions: Chest X-Ray 09/04/17 20:06 IMPRESSION: RIGHT LOWER LOBE AIRSPACE DISEASE SUSPICIOUS FOR PNEUMONIA. RECOMMEND FOLLOWUP RADIOGRAPHS 4 TO 6 WEEKS TO ENSURE RESOLUTION. Status: Imported from PACS Assessment & Plan - Diagnosis (1) Right lower lobe pneumonia Qualifiers: Pneumonia type: due to unspecified organism Qualified Code(s): J18.1 - Lobar pneumonia, unspecified organism Is this a current diagnosis for this admission?: Yes Plan: Given the patient's recent hospital admission, treat for healthcare associated pneumonia. Appropriately treated with with Vancomycin and Cefepime, currently on day 4 of therapy. Will continue antibiotic therapy for a total of 1 week. Patient remains afebrile and WBC within normal range. (2) Atrial fibrillation Qualifiers: Atrial fibrillation type: chronic Qualified Code(s): I48.2 - Chronic atrial fibrillation Is this a current diagnosis for this admission?: Yes Plan: Rate controlled. EKG shows atrial fibrillation, T-wave abnormalities in the anterior lateral leads. Questionable for ischemia. No signs of acute infarction. Patient was admitted for A. fib last month and was discharged on Eliquis, Coreg , Lipitor, aspirin, and Entresto. The patient never filled his prescriptions when he was discharged. Continue all of these medications, patient is tolerating them well. Appreciate event planner assistance in helping the patient fill his medications once discharged from [facility]. (3) CHF (congestive heart failure) Qualifiers: Heart failure type: unspecified Heart failure chronicity: chronic Qualified Code(s): I50.9 - Heart failure, unspecified Is this a current diagnosis for this admission?: Yes Plan: Plan as above. Patient has no complaints of chest pain or SOB. Continue statin, anti-hypertensives, ASA. (4) Weakness Is this a current diagnosis for this admission?: Yes Plan: 3/5 strength in all 4 extremities. Very poor fine motor control in both hands. Patient is unable to feed himself or dress himself. Patient is awaiting transfer to acute rehab following discharge from [facility]. The patient agrees that he is to weak to care for himself, and he lacks social support at home. Discharge planning aware, appreciate their assistance in finding placement - Time Time Spent with patient: 15-24 minutes Medications reviewed and adjusted accordingly: Yes Anticipated discharge: Home - Inpatient Certification Based on my medical assessment, after consideration of the patient's comorbidities, presenting symptoms, or acuity I expect that the services needed warrant INPATIENT care.: Yes I certify that my determination is in accordance with my understanding of Medicare's requirements for reasonable and necessary INPATIENT services [42 CFR 412.3e].: Yes Medical Necessity: Risk of Complication if Not Cared For in Hospital - Plan Summary Plan Summary: Discharge to acute rehab
[2017-09-09] MEDS: ASPIRIN 81 MG TABLET, CHEWABLE PO SCH (21:35)
[2017-09-09] MEDS: ATORVASTATIN CALCIUM 20 MG TABLET PO SCH (21:35)
[2017-09-10] MEDS: IPRATROPIUM/ALBUTEROL 0.5-2.5 MG/3 ML AMPUL NEB SCH ×3 (01:57→14:25)
[2017-09-10] MEDS: HEPARIN SOD (PORCINE) 5,000 UNIT/ML 1 ML SYRINGE SUBCUT SCH ×2 (05:54→13:40)
[2017-09-10] MEDS: APIXABAN 5 MG TABLET PO SCH (10:30)
[2017-09-10] MEDS: FLUTICASONE NASAL SPRAY 50 MCG/SPRY 120 SPRAY/16 GM NASL SCH (10:30)
[2017-09-10] MEDS: CEFEPIME 1 GM/D5W RTU 1 GM/50 ML RTUPB IV SCH (10:30)
[2017-09-10] MEDS: CARVEDILOL 3.125 MG TABLET PO SCH (10:35)
[2017-09-10] MEDS: SACUBITRIL/VALSARTAN 24 MG/26 MG TABLET PO SCH (10:35)
--- NOTE | 2017-09-10 12:21 | PDOC DISCHARGE SUMMARY ---
General - Admit/Disc Date/PCP Admission Date/Primary Care Provider: 09/05/17 00:27 ARIN LEON MD Discharge Date: 09/10/17 - Discharge Diagnosis (1) Right lower lobe pneumonia Is this a current diagnosis for this admission?: Yes Summary: The patient endorsed shortness of breath upon admission. At the time of discharge, the patient does not require supplemental oxygen. He is resting comfortably on room air. His lung sounds are clear. Given his recent hospitalization, we treated him for healthcare associated pneumonia. Appropriately treated with vancomycin and cefepime, will treat for a total of 7 days. The patient has remained afebrile and WBCs within normal range. (2) Atrial fibrillation Is this a current diagnosis for this admission?: Yes Summary: Rate controlled. EKG shows atrial fibrillation, T-wave abnormalities in the anterior lateral leads. No signs of acute infarction. Cardiac enzymes have been normal, no longer trending. Patient was admitted for A. fib last month and was discharged on Eliquis, Coreg , Lipitor, aspirin, and interest. Patient filled his prescriptions once discharged. The patient was restarted on all of these medications, and has been tolerating that well. (3) CHF (congestive heart failure) Is this a current diagnosis for this admission?: Yes Summary: History of CHF with LVEF 20% requiring LifeVest. Patient has no complaints of chest pain or shortness of breath. Continue statin, antihypertensives, aspirin , and anticoagulation. (4) Weakness Is this a current diagnosis for this admission?: Yes Summary: 3/5 strength in all extremities. Very poor fine motor control in both hands. Patient is unable to feed himself or dress himself. Patient requires quite a bit of assistance with ADLs, for which his family is unable to provide adequate support. It was strongly encouraged to the patient and his family that he be transferred to an acute rehab facility following discharge from [facility]. All parties were amenable to this decision. The patient agrees that he is too weak to care for himself, and he lacks social support at home. Patient is currently awaiting transfer to [facility]. - Additional Information Resuscitation Status: Full Code Discharge Diet: As Tolerated, Cardiac Discharge Activity: Activity As Tolerated, Balance Activity w/Rest, Weigh Daily Home Medications: No Home Medications 09/04/17 History of Present Illness Patient complains of: Fatigue, subjective fever, shortness of breath History of Present Illness: KATT HERNÁNDEZ JR is a 76 year old male who presented to the emergency department on September 05 for fatigue, subjective fever, shortness of breath. Additionally, the patient states that his main concern is that he was recently discharged from [place] and does not have the family support to care for him at home. He was found to have a right lower lobe infiltrate, urinary tract infection, and congestive heart failure exacerbation. Of note, the patient was admitted to the hospital 1 month ago for atrial fibrillation, he was discharged with prescriptions for Eliquis, aspirin, Lipitor, interest to but the patient did not fill his prescriptions. Past medical history includes CHF with LVEF 20 % requiring LifeVest, COPD, chronic debility. Hospital Course Hospital Course: as above Physical Exam Vital Signs: Temp Pulse Resp BP Pulse Ox 97.6 F 89 16 87/51 L 97 09/10/17 07:49 09/10/17 08:42 09/10/17 08:42 09/10/17 07:49 09/10/17 08:42 Intake & Output 09/09/17 09/10/17 09/11/17 06:59 06:59 06:59 Intake Total 1442 1408 Balance 1442 1408 Weight 68.9 kg 69.5 kg General appearance: PRESENT: no acute distress Head exam: PRESENT: atraumatic Eye exam: PRESENT: conjunctiva pink Mouth exam: PRESENT: moist Teeth exam: PRESENT: poor dentation Respiratory exam: PRESENT: clear to auscultation rosita, symmetrical, unlabored Cardiovascular exam: PRESENT: +S1, +S2 Pulses: PRESENT: normal radial pulses, +1 pedal pulses bilateral GI/Abdominal exam: PRESENT: normal bowel sounds, soft Rectal exam: PRESENT: deferred Extremities exam: PRESENT: other - Pain in both ankles. Not reproducable with palpation. Full ROM. No edema or erythema. Musculoskeletal exam: PRESENT: full ROM - +gross motor movement, other - poor fine motor control in both hands. ABSENT: ambulatory Neurological exam: PRESENT: alert, awake, oriented to person, oriented to place , oriented to time, oriented to situation Psychiatric exam: PRESENT: appropriate affect Skin exam: PRESENT: normal color Results Laboratory Results: 09/06/17 04:32 09/06/17 23:55 09/05/17 00:57 Blood Blood Culture - Final NO GROWTH IN 5 DAYS Impressions: Chest X-Ray 09/04/17 20:06 IMPRESSION: RIGHT LOWER LOBE AIRSPACE DISEASE SUSPICIOUS FOR PNEUMONIA. RECOMMEND FOLLOWUP RADIOGRAPHS 4 TO 6 WEEKS TO ENSURE RESOLUTION. Status: Imported from PACS Qualifiers - * PATEINT BEING DISCHARGED WITH ANY OF THE FOLLOWING DIAGNOSIS?: Heart Failure HF Pt being discharged on ACEI for LVEF less than 40%?: No Reason(s) for not prescribing ACEI:: Tx not tolerated - Patient being discharged on ARB - Entresto (sacubitril/valsartan) HF Pt being discharged on ARBS for LVEF less than 40%?: Yes HF Pt with Afib discharged with Warfarin?: No Reason(s) for not prescribing Warfarin:: Not indicated - patient does not have afib HF Pt discharged on evidence-based Beta Adelia:: Yes Plan Discharge Plan: Discharge from [facility] to acute rehab Time Spent: Less than 30 Minutes
[2017-09-10] MEDS: VANCOMYCIN HCL 750 MG in DEXTROSE 5%-WATER 250 ML IV SCH (12:51)
[2017-09-10 16:33] VITALS: BP 105/63
--- NOTE | 2017-09-18 15:58 | PDOC TRANSFER SUMMARY ---
General Admission Date/PCP: 09/05/17 00:27 ARIN LEON MD Admission Date: 09/04/17 Transfer Date: 09/10/17 Resuscitation Status: Full Code - Transfer Diagnosis (1) Right lower lobe pneumonia Is this a current diagnosis for this admission?: Yes Diagnosis Summary: The patient endorsed shortness of breath upon admission. At the time of discharge, the patient does not require supplemental oxygen. He is resting comfortably on room air. His lung sounds are clear. Given his recent hospitalization, we treated him for healthcare associated pneumonia. Appropriately treated with vancomycin and cefepime, will treat for a total of 7 days. The patient has remained afebrile and WBCs within normal range. (2) Atrial fibrillation Is this a current diagnosis for this admission?: Yes Diagnosis Summary: Rate controlled. EKG shows atrial fibrillation, T-wave abnormalities in the anterior lateral leads. No signs of acute infarction. Cardiac enzymes have been normal, no longer trending. Patient was admitted for A. fib last month and was discharged on Eliquis, Coreg , Lipitor, aspirin, and interest. Patient filled his prescriptions once discharged. The patient was restarted on all of these medications, and has been tolerating that well. (3) CHF (congestive heart failure) Is this a current diagnosis for this admission?: Yes Diagnosis Summary: History of CHF with LVEF 20% requiring LifeVest. Patient has no complaints of chest pain or shortness of breath. Continue statin, antihypertensives, aspirin , and anticoagulation. (4) Weakness Is this a current diagnosis for this admission?: Yes Diagnosis Summary: 3/5 strength in all extremities. Very poor fine motor control in both hands. Patient is unable to feed himself or dress himself. Patient requires quite a bit of assistance with ADLs, for which his family is unable to provide adequate support. It was strongly encouraged to the patient and his family that he be transferred to an acute rehab facility following discharge from [facility]. All parties were amenable to this decision. The patient agrees that he is too weak to care for himself, and he lacks social support at home. Patient is currently awaiting transfer to [facility]. - Allergies Allergies/Adverse Reactions: Penicillins Allergy (Verified 08/07/17 10:02) - Diet/Activity Discharge Diet: Cardiac Hospital Course Hospital Course: KATT HERNÁNDEZ JR is a 76 year old male who presented to the emergency department on September 05 for fatigue, subjective fever, shortness of breath. Additionally, the patient states that his main concern is that he was recently discharged from [place] and does not have the family support to care for him at home. He was found to have a right lower lobe infiltrate, urinary tract infection, and congestive heart failure exacerbation. Of note, the patient was admitted to the hospital 1 month ago for atrial fibrillation, he was discharged with prescriptions for Eliquis, aspirin, Lipitor, interest to but the patient did not fill his prescriptions. Past medical history includes CHF with LVEF 20 % requiring LifeVest, COPD, chronic debility. See above for assessment and plan Physical Exam Vital Signs: Temp Pulse Resp BP Pulse Ox 98.1 F 126 H 16 105/63 82 L 09/10/17 15:06 09/10/17 15:47 09/10/17 15:06 09/10/17 15:06 09/10/17 15:06 General appearance: PRESENT: no acute distress Eye exam: PRESENT: conjunctiva pink, PERRLA Mouth exam: PRESENT: moist Teeth exam: PRESENT: poor dentation Neck exam: PRESENT: full ROM Respiratory exam: PRESENT: clear to auscultation rosita, symmetrical, unlabored Cardiovascular exam: PRESENT: +S1, +S2 Pulses: PRESENT: normal radial pulses, normal dorsalis pedis pul GI/Abdominal exam: PRESENT: normal bowel sounds, soft Rectal exam: PRESENT: deferred Extremities exam: PRESENT: other - gross motor movement but poor fine motor skills in both hands. ABSENT: full ROM Musculoskeletal exam: PRESENT: tenderness - patient c/o b/l ankle pain, not reproducable with palpation. ABSENT: ambulatory, full ROM Neurological exam: PRESENT: alert, altered, oriented to person, oriented to place, oriented to time, oriented to situation Psychiatric exam: PRESENT: appropriate affect Skin exam: PRESENT: normal color Results Laboratory Results: 09/06/17 04:32 09/06/17 23:55 Impressions: Chest X-Ray 09/04/17 20:06 IMPRESSION: RIGHT LOWER LOBE AIRSPACE DISEASE SUSPICIOUS FOR PNEUMONIA. RECOMMEND FOLLOWUP RADIOGRAPHS 4 TO 6 WEEKS TO ENSURE RESOLUTION. Status: Imported from PACS Plan Discharge Plan: Send to acute rehab for extensive PT and OT to help the patient regain his strength with the hope that he has return home under the care of his daughter Time Spent: Greater than 30 Minutes
== END 2017-09-10 16:40 | DRG 194 ==
LOC: ER 19:33 → EH 09-05 00:27 → 4N 09-05 14:42
PROVIDERS: ADMIT Internal Medicine; ATTEND Internal Medicine
DX: J18.1 Lobar pneumonia, unspecified organism (principal); N10 Acute pyelonephritis; I11.0 Hypertensive heart disease with heart failure; I50.9 Heart failure, unspecified; I48.91 Unspecified atrial fibrillation; R53.81 Other malaise; R00.0 Tachycardia, unspecified; Z79.01 Long term (current) use of anticoagulants; Z79.82 Long term (current) use of aspirin; Z79.899 Other long term (current) drug therapy
CPT/HCPCS: 36415; 71046; 80048; 80053; 80202; 81001; 82565; 83735; 83880; 84443; 84484; 85025; 87040; 87086; 93005; 93010; 94640; 94667; 94668; 94799; 99284; G8978-GP; G8979-GP; G8987-GO; G8988-GO; J0692; J1644; J3370; J3490; J7030; J7060; J7620